=== PATIENT | female | born 1940 | race Caucasian/White ===

== ENCOUNTER 2019-02-26 13:58 | Emergency (ER) | payer MEDICARE, OTHER ==
--- NOTE | 2019-02-26 14:43 | ER Document Report ---
ED Medical Screen (RME) - General Chief Complaint: Fall Injury Stated Complaint: RIB PAIN Time Seen by Provider: 02/26/19 14:23 Mode of Arrival: Ambulatory Information source: Patient, Relative Notes: 78-year-old female with history of PE and EtOH abuse presents emergency department with reports of falling and hitting the left side of her ribs Monday. Reports she was vacuuming and tripped over the cord and fell. No change in LOC. Patient also reports that she has not had a drink in the past 5 days, is looking for assistance with this. She reports she usually has 4-5 shots of vodka a day. She has been to [employer] and went by port but did not like the looks of the places. Daughter reports patient seems short of breath when talking. She has not been on anticoagulants for couple years. Respiratory rate even unlabored. Ecchymosis noted to the left lateral ribs. I have greeted and performed a rapid initial assessment of this patient. A comprehensive ED assessment and evaluation of the patient, analysis of test results and completion of the medical decision making process will be conducted by additional ED providers. TRAVEL OUTSIDE OF THE [place] IN LAST 30 DAYS: No - Related Data Allergies/Adverse Reactions: Penicillins Allergy (Verified 02/26/19 14:20) Rash Past Medical History - Social History Frequency of alcohol use: Heavy - Past Medical History Cardiac Medical History: Reports: Hx Pulmonary Embolism Pulmonary Medical History: Denies: Hx Tuberculosis Malignancy Medical History: Reports: Hx Breast Cancer Psychiatric Medical History: Reports: Hx Depression - Immunizations Hx Diphtheria, Pertussis, Tetanus Vaccination: Yes - 2009 Physical Exam - Vital signs Vitals: Temp Pulse Resp BP Pulse Ox 97.6 F 86 16 125/57 L 99 02/26/19 14:12 02/26/19 14:12 02/26/19 14:12 02/26/19 14:12 02/26/19 14:12 Course - Vital Signs Vital signs: Temp Pulse Resp BP Pulse Ox 97.6 F 86 16 125/57 L 99 02/26/19 14:12 02/26/19 14:12 02/26/19 14:12 02/26/19 14:12 02/26/19 14:12
[2019-02-26 15:25] LABS: ABSOLUTE EOSINOPHILS # (AUTO) 0.1 10^3/uL (0.0-0.6); ABSOLUTE LYMPHOCYTES (AUTO) 1.3 10^3/uL (0.5-4.7); ABSOLUTE MONOCYTES (AUTO) 0.4 10^3/uL (0.1-1.4); ABSOLUTE NEUT (AUTO) 4.8 10^3/uL (1.7-8.2); BASOPHILS % (AUTO) 0.4 % (0-2); EOSINOPHILS % (AUTO) 1.5 % (0-6); HEMATOCRIT 37.1 % (36.0-47.0); HEMOGLOBIN 12.4 g/dL (12.0-15.5); LYMPHOCYTES % (AUTO) 20.1 % (13-45); MEAN CORPUSCULAR HEMOGLOBIN 32.6 pg (27.0-33.4); MEAN CORPUSCULAR HGB CONC 33.5 g/dL (32.0-36.0); MEAN CORPUSCULAR VOLUME 97 fl (80-97); MONOCYTES % (AUTO) 5.9 % (3-13); PLATELET COUNT 262 10^3/uL (150-450); RED BLOOD COUNT 3.81 10^6/uL (3.72-5.28); RED CELL DISTRIBUTION WIDTH 15.1 % (11.5-14.0); SEGMENTED NEUTROPHILS % (AUTO) 72.1 % (42-78); TOTAL CELLS COUNTED % (AUTO) 100 %; WHITE BLOOD COUNT 6.7 10^3/uL (4.0-10.5)
[2019-02-26 15:35] LABS: AMORPHOUS SEDIMENT,URINE TRACE /HPF; APPEARANCE,URINE CLOUDY; BILIRUBIN,URINE SMALL (NEGATIVE); COLOR,URINE AMBER; GLUCOSE, URINE NEGATIVE (NEGATIVE); KETONES,URINE TRACE mg/dL (NEGATIVE); LEUKOCYTE ESTERASE,URINE MODERATE (NEGATIVE); NITRITE,URINE NEGATIVE (NEGATIVE); PROTEIN,URINE 30 mg/dL (NEGATIVE)
--- NOTE | 2019-02-26 15:36 | RADIOLOGY REPORT (SQ) ---
EXAM DESCRIPTION: RIBS LEFT W/PA CHEST COMPLETED DATE/TIME: 02/26/2019 3:22 pm REASON FOR STUDY: fall, rib pain COMPARISON: Chest x-ray dated 07/21/2012. TECHNIQUE: Frontal view of the chest and additional views of the left ribs acquired. NUMBER OF VIEWS: Three view. LIMITATIONS: None. FINDINGS: FRONTAL CXR: No pneumothorax. No pleural effusion. Stable focal density in the right miriam g, presumably due to scarring. Surgical clips on the left. Hiatal hernia. RIBS: Fractures of the posterior and lateral 7th rib. Minimally displaced fracture of the lateral 6t h rib. OTHER: No other significant finding. IMPRESSION: FRACTURES OF THE LEFT 6TH AND 7TH RIBS DESCRIBED. COMMENT: SITE OF TRAUMA/COMPLAINT MARKED/STAMP COMPLETED: YES. TECHNICAL DOCUMENTATION: JOB ID: [id number] [employer]- All Rights Reserved Reading location - IP/workstation name: [email or web address]
[2019-02-26 15:50] LABS: ALBUMIN 3.8 g/dL (3.5-5.0); ALCOHOL < 10 mg/dL (NONE DETECTED); ALKALINE PHOSPHATASE 72 U/L (38-126); ANION GAP 10 (5-19); ASPARTATE AMINO TRANSFERASE 22 U/L (14-36); BILIRUBIN,DIRECT 0.3 mg/dL (0.0-0.4); BILIRUBIN,TOTAL 0.5 mg/dL (0.2-1.3); BLOOD UREA NITROGEN 21 mg/dL (7-20); CALCIUM 9.6 mg/dL (8.4-10.2); CARBON DIOXIDE 27 mmol/L (22-30); CHLORIDE 103 mmol/L (98-107); GLUCOSE 131 mg/dL (75-110); POTASSIUM 5.5 mmol/L (3.6-5.0); TOTAL PROTEIN 7.4 g/dL (6.3-8.2)
[2019-02-26] MEDS ORDERED: HYDROCODONE/ACETAMINOPHEN 5-325 MG TABLET PO ONE (15:55)
--- NOTE | 2019-02-26 15:59 | ER Document Report ---
ED Respiratory Problem - General Chief Complaint: Fall Injury Stated Complaint: RIB PAIN Time Seen by Provider: 02/26/19 14:23 Mode of Arrival: Ambulatory Notes: HPI: 78-year-old female that states she tripped and fell hitting her left ribs on a piece of furniture 3 days ago. She states she has had some pain with mov ement. She denies any fevers, cough, shortness of breath. She did not hit her head. She has small abrasion to her right elbow and states her tetanus is up-to-date. She denies pain or injury to any other location. ROS: See HPI All other review of systems reviewed and otherwise negative Reviewed vital signs and nursing note as charted by RN. PHYSICAL EXAM: CONSTITUTIONAL: Alert and oriented and responds appropriately to questions. Well-appearing; well-nourished HEAD: Normocephalic; atraumatic ENT: Normal nose; no rhinorrhea; moist mucous membranes; pharynx without lesions noted NECK: Supple without meningismus; non-tender CARD: Regular rate and rhythm; no murmurs; symmetric distal pulses RESP: Normal chest excursion without splinting or tachypnea; patient has small bruising to the left upper lateral ribs with no crepitus or flail chest; breath sounds clear and equal bilaterally ABD/GI: Normal bowel sounds; non-distended; soft, non-tender BACK: The back appears normal and is non-tender to palpation along the midline spine EXT: Normal ROM in all joints; non-tender to palpation; no edema SKIN: No acute lesions noted NEURO: CN 2-12 intact; 5/5 bilateral upper and lower extremity strength with sensation intact to light touch PSYCH: The patient's mood and manner are appropriate. Grooming and personal hygiene are appropriate. TRAVEL OUTSIDE OF THE [place] IN LAST 30 DAYS: No - Related Data Allergies/Adverse Reactions: Penicillins Allergy (Verified 02/26/19 14:20) Rash Past Medical History - General Information source: Patient, Relative - Social History Smoking Status: Never Smoker Frequency of alcohol use: Heavy Family History: Reviewed & Not Pertinent Patient has suicidal ideation: No Patient has homicidal ideation: No - Past Medical History Cardiac Medical History: Reports: Hx Pulmonary Embolism Pulmonary Medical History: Denies: Hx Tuberculosis Malignancy Medical History: Reports: Hx Breast Cancer Psychiatric Medical History: Reports: Hx Depression - Immunizations Hx Diphtheria, Pertussis, Tetanus Vaccination: Yes - 2009 Hx Pneumococcal Vaccination: 02/06/09 Physical Exam - Vital signs Vitals: Temp Pulse Resp BP Pulse Ox 97.6 F 86 16 125/57 L 99 02/26/19 14:12 02/26/19 14:12 02/26/19 14:12 02/26/19 14:12 02/26/19 14:12 Course - Re-evaluation Re-evalutation: 02/26/19 15:58 Given the above history and physical, and x-ray of the chest and an EKG were performed. X-ray as recorded. Incident was 3 days ago with oxygenation as rec orded. We will provide an incentive spirometer as well as pain medications to help the patient continue to have deep large breaths to help with pain control and to avoid pneumonia. Strict return precautions have been explained. - Vital Signs Vital signs: Temp Pulse Resp BP Pulse Ox 97.6 F 86 16 125/57 L 99 02/26/19 14:12 02/26/19 14:12 02/26/19 14:12 02/26/19 14:12 02/26/19 14:12 - Laboratory Result Diagrams: 02/26/19 14:52 02/26/19 14:52 Laboratory results interpreted by me: 02/26/19 02/26/19 02/26/19 14:52 14:52 14:52 RDW 15.1 H Potassium 5.5 H BUN 21 H Creatinine 1.32 H Est GFR ( Amer) 47 L Est GFR (MDRD) Non-Af 39 L Glucose 131 H Urine Protein 30 H Urine Ketones TRACE H Urine Bilirubin SMALL H Urine Urobilinogen 2.0 H Ur Leukocyte Esterase MODERATE H Discharge - Discharge Clinical Impression: Left rib fracture Qualifiers: Encounter type: initial encounter Rib fracture type: multiple ribs Fracture type: closed Qualified Code(s): S22.42XA - Multiple fractures of ribs, left side, initial encounter for closed fracture Condition: Good Disposition: HOME, SELF-CARE Additional Instructions: Come back immediately for any increased pain, difficulty breathing, shortness of breath, fevers or vomiting, or any other acute problems. Please make sure that you take the pain medications as needed and make sure that you continue to take deep breaths with follow-up with your primary care physician as we have discussed.
--- NOTE | 2019-02-26 17:01 | EKG REPORT ---
SEVERITY:- NORMAL ECG - SINUS RHYTHM : Confirmed by: Mukund Helms MD 26-Feb-2019 16:59:43
[2019-02-26 17:08] VITALS: BP 164/80
== END 2019-02-26 17:06 | disposition home or self-care (01) ==
LOC: ER 13:58
DX: S22.42XA Multiple fractures of ribs, left side, initial encounter for closed fracture (principal); S50.311A Abrasion of right elbow, initial encounter; W01.190A Fall on same level from slipping, tripping and stumbling with subsequent striking against furniture, initial encounter
CPT/HCPCS: 36415; 80053; 80307; 81001; 85025; 93005; 93010; 99283

== ENCOUNTER 2019-12-20 15:46 | Inpatient (IN) | payer MEDICARE ==
[2019-12-20 16:06] LABS: ABSOLUTE BASOPHILS # (AUTO) 0.1 10^3/uL (0.0-0.2); ABSOLUTE EOSINOPHILS # (AUTO) 0.1 10^3/uL (0.0-0.6); ABSOLUTE LYMPHOCYTES (AUTO) 1.3 10^3/uL (0.5-4.7); ABSOLUTE MONOCYTES (AUTO) 0.5 10^3/uL (0.1-1.4); HEMOGLOBIN 11.3 g/dL (12.0-15.5); MEAN CORPUSCULAR HGB CONC 32.5 g/dL (32.0-36.0); TOTAL CELLS COUNTED % (AUTO) 100 %
[2019-12-20 16:11] LABS: PARTIAL THROMBOPLASTIN TIME 25.9 SEC (23.5-35.8)
[2019-12-20 16:16] LABS: ABSOLUTE NEUT (AUTO) 2.9 10^3/uL (1.7-8.2); BASOPHILS % (AUTO) 1.2 % (0-2); HEMATOCRIT 34.8 % (36.0-47.0); LYMPHOCYTES % (AUTO) 26.4 % (13-45); MEAN CORPUSCULAR HEMOGLOBIN 30.4 pg (27.0-33.4); MEAN CORPUSCULAR VOLUME 94 fl (80-97); MONOCYTES % (AUTO) 9.7 % (3-13); PLATELET COUNT 194 10^3/uL (150-450); RED BLOOD COUNT 3.72 10^6/uL (3.72-5.28); RED CELL DISTRIBUTION WIDTH 16.1 % (11.5-14.0); SEGMENTED NEUTROPHILS % (AUTO) 60.7 % (42-78); WHITE BLOOD COUNT 4.8 10^3/uL (4.0-10.5)
[2019-12-20 16:18] LABS: INTERNATIONAL RATION (INR) 0.86; PROTHROMBIN TIME 11.9 SEC (11.4-15.4)
--- NOTE | 2019-12-20 16:18 | RADIOLOGY REPORT (SQ) ---
EXAM DESCRIPTION: CHEST SINGLE VIEW IMAGES COMPLETED DATE/TIME: 12/20/2019 4:11 pm REASON FOR STUDY: AMS COMPARISON: 07/21/2012 EXAM PARAMETERS: NUMBER OF VIEWS: One view. TECHNIQUE: Single frontal radiographic view of the chest acquired. RADIATION DOSE: NA LIMITATIONS: None. FINDINGS: LUNGS AND PLEURA: No opacities, masses or pneumothorax. No pleural effusion. MEDIASTINUM AND HILAR STRUCTURES: No masses. Contour normal. HEART AND VASCULAR STRUCTURES: Heart normal in size. Normal vasculature. BONES: No acute findings. HARDWARE: Surgical clips overlie the lower left chest wall. OTHER: No other significant finding. IMPRESSION: NO ACUTE RADIOGRAPHIC FINDING IN THE CHEST. TECHNICAL DOCUMENTATION: JOB ID: [id number] 2010 [employer]- All Rights Reserved Reading location - IP/workstation name: [email or web address]
--- NOTE | 2019-12-20 16:19 | RADIOLOGY REPORT (SQ) ---
EXAM DESCRIPTION: CT HEAD WITHOUT IMAGES COMPLETED DATE/TIME: 12/20/2019 4:08 pm REASON FOR STUDY: AMS COMPARISON: 10/02/2012 TECHNIQUE: Axial images acquired through the brain without intravenous contrast. Images reviewed wi th bone, brain and subdural windows. Additional sagittal and coronal reconstructions were generated. Images stored on PACS. All CT scanners at this facility use dose modulation, iterative reconstruction, and/or weight based d osing when appropriate to reduce radiation dose to as low as reasonably achievable (ALARA). [facility]: Dose Right [facility]: CareDose [facility]: Dose Right [facility]: Teradose 4D [facility]: Agilys RADIATION DOSE: CT Rad equipment meets quality standard of care and radiation dose reduction techniq ues were employed. CTDIvol: 53.2 mGy. DLP: 991 mGy-cm.mGy. LIMITATIONS: None. FINDINGS: VENTRICLES: Prominent. CEREBRUM: No masses. No hemorrhage. No midline shift. Areas of low density in the white matter mos t likely due to chronic micro-vascular ischemic change. No evidence for acute infarction. CEREBELLUM: No masses. No hemorrhage. No alteration of density. No evidence for acute infarction. EXTRAAXIAL SPACES: Age-related involutional change. No fluid collections. No masses. ORBITS AND GLOBE: No intra- or extraconal masses. Normal contour of globe without masses. CALVARIUM: No fracture. PARANASAL SINUSES: No fluid or mucosal thickening. SOFT TISSUES: No mass or hematoma. OTHER: No other significant finding. IMPRESSION: CHRONIC CHANGES OF ATROPHY AND MICROVASCULAR ISCHEMIA. NO ACUTE PROCESS. EVIDENCE OF ACUTE STROKE: NO. TECHNICAL DOCUMENTATION: JOB ID: [id number] Quality ID # [id number]: Final reports with documentation of one or more dose reduction techniques (e.g., Au tomated exposure control, adjustment of the mA and/or kV according to patient size, use of iterative reconstruction technique) 2010 [employer]- All Rights Reserved Reading location - IP/workstation name: [email or web address]
[2019-12-20 16:31] LABS: ALBUMIN 3.4 g/dL (3.5-5.0); ALKALINE PHOSPHATASE 87 U/L (38-126); ANION GAP 9 (5-19); ASPARTATE AMINO TRANSFERASE 19 U/L (14-36); BILIRUBIN,DIRECT 0.1 mg/dL (0.0-0.4); BILIRUBIN,TOTAL 0.3 mg/dL (0.2-1.3); BLOOD UREA NITROGEN 16 mg/dL (7-20); CARBON DIOXIDE 24 mmol/L (22-30); CHLORIDE 106 mmol/L (98-107); GLUCOSE 85 mg/dL (75-110); POTASSIUM 4.1 mmol/L (3.6-5.0); TOTAL PROTEIN 6.6 g/dL (6.3-8.2)
[2019-12-20 16:35] LABS: ALCOHOL < 10 mg/dL (NONE DETECTED); CREATINE KINASE < 20 U/L (30-135)
[2019-12-20 16:42] LABS: CREATINE KINASE MB 0.49 ng/mL (<4.55)
--- NOTE | 2019-12-20 16:45 | ER Document Report ---
ED Neuro Symptoms/Deficit - General Chief Complaint: Slurred Speech Stated Complaint: AMS Time Seen by Provider: 12/20/19 15:58 TRAVEL OUTSIDE OF THE [place] IN LAST 30 DAYS: No - HPI Notes: Patient is an 79-year-old female with a past medical history of alcohol abuse who presents with stroke like symptoms. Patient lives with her daughter. Her daughter went to run some errands today. Her daughter states that the aunt called her over the phone and stated that the patient was not acting normally when they were talking. The daughter states that the last known well was around 11am to 11:30 AM when the patient was talking with the aunt and her speech became abnormal. The daughter does not think that the patient is taking blood thinners but she did in the past. She has a history of high blood pressure but is not sure if she is taking her blood pressure medications either. The patient came to live with her daughter after relapsing with alcohol abuse. Patient is not a TPA candidate as she is outside the TPA window. - Related Data Allergies/Adverse Reactions: Penicillins Allergy (Verified 02/26/19 14:20) Rash Past Medical History - General Information source: Relative - Social History Smoking Status: Unknown if Ever Smoked Family History: Reviewed & Not Pertinent - Past Medical History Cardiac Medical History: Reports: Hx Pulmonary Embolism Pulmonary Medical History: Denies: Hx Tuberculosis Malignancy Medical History: Reports: Hx Breast Cancer Psychiatric Medical History: Reports: Hx Depression - Immunizations Hx Diphtheria, Pertussis, Tetanus Vaccination: Yes - 2009 Hx Pneumococcal Vaccination: 02/06/09 Review of Systems - Review of Systems -: Yes ROS unobtainable due to patient's medical condition - Aphasia Physical Exam - Vital signs Vitals: Pulse Ox 98 12/20/19 16:11 - General General appearance: Appears well Notes: VITAL SIGNS: Within normal limits. GENERAL: No acute distress, non-toxic appearance. HEAD: Normal with no signs of head trauma. EYES: EOMI, conjunctiva normal, no discharge. EARS: Hearing grossly intact. NOSE: Normal. NECK: Normal range of motion, no tenderness, supple, no lymphadenopathy, No adenopathy, no JVD. CHEST: Clear breath sounds bilaterally. No wheezes, rales, or rhonchi. CARDIAC: Regular rate and rhythm. S1 and S2, without murmurs, gallops, or rubs. VASCULAR: No Edema. Peripheral pulses normal and equal in all extremities. ABDOMEN: Normal and soft with no tendernes GENITOURINARY: Normal, No tenderness LYMPATHTIC: No lymphadenopathy noted. MUSCULOSKELETAL: Good range of motion of all major joints. NEUROLOGICAL: Follows all commands. Moves all extremities equally. Right-sided facial droop. Aphasia. SKIN: Normal appearance with no rashes or lesions. Course - Re-evaluation Re-evalutation: 12/21/19 02:13 Patient has symptoms concerning for a stroke. Alcohol level is normal. Patient's head CT was normal. She is outside the TPA window but I discussed with [facility] neurology to make sure she does not need any intervention prior to her CTA being read. CTA does not show any findings. Neurology recommended she be admitted for MRI and further management. I did discuss all this with the daughter who is now at bedside. Patient continues to be aphasic. She continues to move all extremities. Patient does seem to be frustrated that she is unable to talk. She did have a slightly bumped troponin. She states she is not having chest pain when asked. She will be admitted for further care. - Vital Signs Vital signs: Temp Pulse Resp BP Pulse Ox 98.0 F 98 12/20/19 16:12 12/20/19 16:11 - Laboratory Result Diagrams: 12/20/19 15:52 12/20/19 15:52 Laboratory results interpreted by me: 12/20/19 12/20/19 15:52 15:52 Hgb 11.3 L Hct 34.8 L RDW 16.1 H Est GFR ( Amer) 59 L Est GFR (MDRD) Non-Af 49 L Creatine Kinase < 20 L Albumin 3.4 L - Diagnostic Test Radiology reviewed: Image reviewed, Reports reviewed - EKG Interpretation by Me EKG shows normal: Sinus rhythm Rate: Normal Rhythm: NSR When compared to previous EKG there are: Previous EKG unavailable ED NIH Stroke Scale - NIH Stroke Scale When completed:: Protocol *: 1. NIH scale should be completed with appropriate accompanying assessment tools. *: 2. The NIH should reflect what the patient is capable of doing and should not be coached by the clinician. 1a. Level of Consciousness: 0=Alert;keenly responsive -: 1=Drowsy -: 2=Obtunded -: 3=Coma/unresponsive or reflex to noxious stimuli. 1a. Responses: 0 1b. Orientation Questions: a. What month is it? -: b. How old are you? -: 0=Answers both questions correctly. -: 1=Answers one question correctly or patient is intubated or has orotracheal trauma. -: 2=Answers neither question correctly. 1b. Responses: 0 1c. Response to commands: a. Open and close eyes? -: b. Food Mixer Repairer and release hand? -: Credit is given despite weakness. Demonstration of task is permitted. Substitute command if hands cannot be used. -: 0=Performs both tasks correctly -: 1=Performs one task correctly -: 2=Performs neither task correctly 1c. Responses: 0 2. Gaze: Establish eye contact and instruct patient to "Follow my finger" -: 0=Normal -: 1=Partial gaze palsy. Gaze is abnormal in one or both eyes, but where forced deviation or total gaze paresis is not present. -: 2=Forced deviation or total gaze paresis. 2. Responses: 0 3. Visual Avalos: Sees fingers in all four quadrants. -: 0=No visual loss. -: 1=Partial hemianopsia. -: 2=Complete hemianopsia. -: 3=Bilateral hemianopsia (including Cortical blindness) 3. Responses: 0 4. Facial Movement: Instruct patient to: -: a. Show me your teeth -: b. Raise your eyebrows -: c. Close your eyes -: d. Smile -: 0=Normal symmetrical movement -: 1=Minor paralysis (flattened nasolabial fold, asymmetry on smiling). -: 2=Partial paralysis (total or near total paralysis of lower face). -: 3=Complete paralysis of upper and lower face 4. Responses: 1 5. Motor functions (left arm): Alternate sides and extend each arm with palms down (90 degrees if sitting or 45 degrees for supine). -: 0=No drift;limb holds for full 10 seconds. -: 1=Drift; limb holds but drifts down before full 10 seconds, but does not hit bed. -: 2=Some effort against gravity; limb cannot get to or maintain position. -: 3=No effort against gravity; limb falls. -: 4=No movement. -: UN=Amputation, joint fusion, explain in comments. 5. Responses (left arm): 0 5. Motor Functions (right arm): Alternate sides and extend each arm with palms down (90 degrees if sitting or 45 degrees for supine). -: 0=No drift;limb holds for full 10 seconds. -: 1=Drift; limb holds but drifts down before full 10 seconds, but does not hit bed. -: 2=Some effort against gravity; limb cannot get to or maintain position. -: 3=No effort against gravity; limb falls. -: 4=No movement. -: UN=Amputation, joint fusion, explain in comments. 5. Responses (right arm): 0 6. Motor Functions (left leg): With patient lying supine, alternate sides and extend each leg (30 degrees always while supine). -: 0=No drift, leg holds position for full 5 seconds -: 1=Drift; leg falls before full 5 seconds but does not hit bed. -: 2=Some effort against gravity, leg falls to bed but some effort against gravity. -: 3=No effort against gravity, leg falls to bed immediately. -: 4=No movement. -: UN=Amputation, joint fusion; explain in comments. 6. Responses (left leg): 0 6. Motor Functions (right leg): With patient lying supine, alternate sides and extend each leg (30 degrees always while supine). -: 0=No drift, leg holds position for full 5 seconds -: 1=Drift; leg falls before full 5 seconds but does not hit bed. -: 2=Some effort against gravity, leg falls to bed but some effort against gravity. -: 3=No effort against gravity, leg falls to bed immediately. -: 4=No movement. -: UN=Amputation, joint fusion; explain in comments. 6. Responses (right leg): 0 7. Limb Ataxia: With eyes open instruct patient to: -: a. "Touch your finger to your nose". -: b. "Touch your heel to your barragan" -: 0=Absent -: 1=Present in one limb. -: 2=Present in two limbs. -: UN=Amputation or joint fusion; explain in comments. 7. Responses: 0 8. Sensory: Test sensation using pinprick or noxious stimuli. Test as many body parts as possible. -: 0=Normal;no sensory loss -: 1=Mile to moderate sensory loss (patient feels pin prick but is less sharp on affected side). -: 2=Severe or total sensory loss. 8. Responses: 0 9. Best Language: Instruct patient to: -: a. "Describe what you see in this picture." -: b. "Name the items in this picture." -: c. "Read these sentences." -: 0=No aphasia, normal -: 1=Mild to moderate aphasia. -: 2=Severe aphasia -: 3=Mute, global aphasia, no usable speech or auditory comprehension. 9. Responses: 2 10. Articulation, Dysarthia: Instruct patient to: -: "Read these words" or "Repeat these words" -: 0=Normal -: 1=Mild to moderate; patient may slur some words but can be understood without difficulty. -: 2=Severe; patients speech so slurred as to be unintelligible in the absence of dysphasia. -: UN=Intubated or other physical barrier, explain in comments. 10. Responses: 2 11. Extinction or inattention: 0=No abnormality -: 1= Visual, tactile, auditory, spatial, or personal inattention or extinction to bilateral simulation in one or the sensory modalities. -: 2=Profound annika-inattention or annika-inattention to more than one modality; does not recognize own hand. 11. Responses: 0 Total Score: 5 Discharge - Discharge Clinical Impression: Aphasia, Stroke-like symptoms Condition: Stable Disposition: ADMITTED INPATIENT Admitting Provider: Kristal (Hospitalist) Unit Admitted: Telemetry - med surg tele
[2019-12-20 16:48] LABS: TROPONIN I 0.052 ng/mL
--- NOTE | 2019-12-20 17:46 | RADIOLOGY REPORT (SQ) ---
EXAM DESCRIPTION: CTA HEAD IMAGES COMPLETED DATE/TIME: 12/20/2019 5:35 pm REASON FOR STUDY: stroke alert COMPARISON: None. TECHNIQUE: Post IV contrast scanning, thin section axial imaging through the brain to evaluate the a rterial structures. Source and MIP images are saved and reviewed on PACS. Advanced 3D imaging as volume-rendering, MIPs, SSD performed? yes All CT scanners at this facility use dose modulation, iterative reconstruction, and/or weight based d osing when appropriate to reduce radiation dose to as low as reasonably achievable (ALARA). [facility]: Dose Right [facility]: CareDose [facility]: Dose Right [facility]: Teradose 4D [facility]: Socure CONTRAST TYPE AND DOSE: 70 mL Omnipaque 350- low osmolar. RENAL FUNCTION: BUN 16 creatinine 1.08 LIMITATIONS: None. FINDINGS: [place]: The anterior, middle, posterior cerebral arteries are all patent. No ev idence of aneurysm or focal stenosis. POSTERIOR CIRCULATION: The distal vertebral arteries are patent as is the basilar artery. No aneurysm . BRAIN: No gross enhancing lesions as visualized. The superior cerebral hemispheres are not included in the field of view. BONES: Intact as visualized. SINUSES: No fluid or mucosal thickening. OTHER: No other significant finding. IMPRESSION: NO CTA EVIDENCE OF STENOSIS OR ANEURYSM OF THE K[place]TAG OF [place]. TECHNICAL DOCUMENTATION: JOB ID: [id number] Quality ID # [id number]: Final reports with documentation of one or more dose reduction techniques (e.g., Au tomated exposure control, adjustment of the mA and/or kV according to patient size, use of iterative reconstruction technique) 2010 [employer]- All Rights Reserved Reading location - IP/workstation name: [email or web address]
--- NOTE | 2019-12-20 17:49 | RADIOLOGY REPORT (SQ) ---
EXAM DESCRIPTION: CTA NECK IMAGES COMPLETED DATE/TIME: 12/20/2019 5:35 pm REASON FOR STUDY: stroke alert COMPARISON: None. TECHNIQUE: Axial dynamic scanning technique with dynamic contrast enhancement through the extra-aircraft structural design engineer nial carotid and vertebral arteries. Multiplanar reconstruction. 3-D MIPS and Volume-rendered imag es acquired at the workstation and saved to PACS. Images are reviewed in soft tissue, bone, lung w indows. All CT scanners at this facility use dose modulation, iterative reconstruction, and/or weight based d osing when appropriate to reduce radiation dose to as low as reasonably achievable (ALARA). [facility]: Dose Right [facility]: CareDose [facility]: Dose Right [facility]: Teradose 4D [facility]: Avaz CONTRAST TYPE AND DOSE: contrast/concentration: Isovue 350.00 mmol/ml; Total Contrast Delivered: 69. 9 ml; Total Saline Delivered: 75.0 ml RENAL FUNCTION: BUN 16 creatinine 1.08 LIMITATIONS: None. FINDINGS: AORTIC ARCH: Normal three-vessel origin. Bilateral subclavian arteries are patent. No d issection. RIGHT CAROTIDS: Patent common, internal and external carotid arteries without suggestion of significa nt stenosis or irregular plaque. No dissection. Tortuous ICA RIGHT VERTEBRAL: Patent. No dissection. Smaller than the left vertebral. LEFT CAROTIDS: Patent common, internal and external carotid arteries without suggestion of significan t stenosis or irregular plaque. No dissection. Tortuous ICA LEFT VERTEBRAL: Patent. No dissection. OTHER: No other significant finding. OTHER: 3-D reconstructions confirm findings. IMPRESSION: NORMAL CTA OF THE EXTRA-CRANIAL CAROTID AND VERTEBRAL ARTERIES. COMMENT: Quality ID #[id number]: Measurements of distal internal carotid diameter were used as the denomina tor for stenosis measurement. TECHNICAL DOCUMENTATION: JOB ID: [id number] Quality ID # [id number]: Final reports with documentation of one or more dose reduction techniques (e.g., Au tomated exposure control, adjustment of the mA and/or kV according to patient size, use of iterative reconstruction technique) 2010 [employer]- All Rights Reserved Reading location - IP/workstation name: [email or web address]
[2019-12-20] MEDS ORDERED: NORMAL SALINE 500 ML IV ONE (18:16)
[2019-12-20] MEDS ORDERED: ONDANSETRON HCL INJ/PF 4 MG/2 ML SDV IV PRN (21:10)
[2019-12-20] MEDS ORDERED: ACETAMINOPHEN 325 MG TABLET PO PRN (21:10)
[2019-12-20] MEDS ORDERED: ONDANSETRON 4 MG TAB.RAPDIS PO PRN (21:10)
--- NOTE | 2019-12-20 21:33 | PDOC H&P ---
History of Present Illness History of Present Illness: EYAL REED is a 79 year old female with past medical history significant for history of alcohol withdrawal and abuse with dependency, HTN, breast cancer x2 status post lumpectomy, history of bilateral PE off anticoagulation who presents with a 1 day history persistent expressive aphasia and right facial droop patient reportedly last seen normal at approximately 11 AM. Patient brought to ED by EMS and was not a candidate for TPA. CT head and head/neck CTA head did not show any acute or significant flow restrictions, no evidence of bleeding or other acute process. EKG showed normal sinus rhythm without acute changes. Troponin minimally elevated at 0.052 and patient denies any chest pain. Per daughter, patient has an extremely long history of alcohol abuse and when she drinks at least a pint of vodka per day for many years. Patient was previously diagnosed with bilateral PE when she had breast cancer and she was subsequently taken off Coumadin due to falling and having a hip hematoma presumably due to alcohol abuse and alcohol-related ataxia. She does not take aspirin every day. Denies fever/chills/chest pain/shortness of breath/diarrhea/vomiting. Denies any sick contacts or Covid exposure. Patient will be admitted for neuro checks and stroke work-up however she will also need several days of inpatient stay for what very well could be severe alcohol withdrawal. Per daughter, patient has had alcohol withdrawal in the past and she became extremely combative and confused. ROS is extremely limited due to patient's expressive aphasia. Patient and daughter both agree that she wants to be DNR/DNI. Past Medical History Cardiac Medical History: Reports: Pulmonary Embolism Pulmonary Medical History: Denies: Tuberculosis Malignancy Medical History: Reports: Breast Cancer Psychiatric Medical History: Reports: Alcohol Dependency, Depression Past Surgical History Past Surgical History: Reports: Other - Lumpectomy left breast Social History Information Source: Patient, Relative, Emergency Med Personnel Lives with: Family Smoking Status: Never Smoker Frequency of Alcohol Use: Heavy Hx Recreational Drug Use: No Hx Prescription Drug Abuse: No - Advance Directive Resuscitation Status: Do Not Resuscitate Surrogate healthcare decision maker:: Admitting diagnosis: Suspected acute CVA and alcohol withdrawal All aspects of code status discussed with patient/POA including cardioversion, chest compressions, and intubation and the patient/POA indicated they wish to be DNR/DNI MPOA is designated as: Shira Vaz Time spent: Greater than 16 minutes Family History Family History: Reviewed & Not Pertinent, COPD Parental Family History Reviewed: Yes Children Family History Reviewed: Yes Sibling(s) Family History Reviewed.: Yes Medication/Allergy Home Medications: No Home Medications 12/20/19 Allergies/Adverse Reactions: Penicillins Allergy (Verified 02/26/19 14:20) Rash Review of Systems All systems: reviewed and no additional remarkable complaints except as stated - Per HPI otherwise negative Physical Exam Vital Signs: Temp Pulse Resp BP Pulse Ox 98.1 F 84 23 H 167/102 H 97 12/20/19 18:32 12/20/19 18:32 12/20/19 19:30 12/20/19 19:30 12/20/19 19:30 Intake & Output 12/19/19 12/20/19 12/21/19 06:59 06:59 06:59 Intake Total 500 Balance 500 Weight 49.2 kg Exam: General appearance: PRESENT: no acute distress, thin and frail appearing white female Head exam: PRESENT: atraumatic, normocephalic Eye exam: PRESENT: conjunctiva pink. ABSENT: scleral icterus Mouth exam: PRESENT: moist Respiratory exam: PRESENT: clear to auscultation melissa. ABSENT: rales, rhonchi, wheezes Cardiovascular exam: PRESENT: RRR. ABSENT: diastolic murmur, rubs, systolic murmur GI/Abdominal exam: PRESENT: normal bowel sounds, soft. ABSENT: distended, guarding, mass, organolmegaly, rebound, tenderness Neurological exam: PRESENT: alert, awake, cannot assess orientation due to expressive aphasia; limited neurologic exam due to inability to follow commands effectively although patient appears to have strength 5/5 upper and lower extremities equal bilaterally, significant right facial droop, cranial nerves otherwise appear grossly intact but exam is limited Psychiatric exam: PRESENT: appropriate affect, normal mood Skin exam: PRESENT: dry, intact, warm Results Laboratory Results: 12/20/19 15:52 12/20/19 15:52 12/20/19 12/20/19 15:52 15:52 WBC 4.8 RBC 3.72 Hgb 11.3 L Hct 34.8 L MCV 94 MCH 30.4 MCHC 32.5 RDW 16.1 H Plt Count 194 Seg Neutrophils % 60.7 Sodium 138.9 Potassium 4.1 Chloride 106 Carbon Dioxide 24 Anion Gap 9 BUN 16 Creatinine 1.08 Est GFR ( Amer) 59 L Glucose 85 Calcium 9.0 Total Bilirubin 0.3 AST 19 Alkaline Phosphatase 87 Total Protein 6.6 Albumin 3.4 L 12/20/19 12/20/19 12/20/19 15:52 15:52 18:43 Creatine Kinase < 20 L CK-MB (CK-2) 0.49 Troponin I 0.052 Cancelled 12/20/19 20:00 Creatine Kinase CK-MB (CK-2) Troponin I 0.068 Impressions: Chest X-Ray 12/20/19 15:59 IMPRESSION: NO ACUTE RADIOGRAPHIC FINDING IN THE CHEST. Head CT 12/20/19 15:59 IMPRESSION: CHRONIC CHANGES OF ATROPHY AND MICROVASCULAR ISCHEMIA. NO ACUTE PROCESS. EVIDENCE OF ACUTE STROKE: NO. Head CTA 12/20/19 16:37 IMPRESSION: NO CTA EVIDENCE OF STENOSIS OR ANEURYSM OF THE [place]. Neck CTA 12/20/19 16:37 IMPRESSION: NORMAL CTA OF THE EXTRA-CRANIAL CAROTID AND VERTEBRAL ARTERIES. Assessment and Plan - Diagnosis (1) Suspected cerebrovascular accident (CVA) Is this a current diagnosis for this admission?: Yes Plan: -Admitted for CVA rule out -NIHSS on Admit: 5 -tPA not given due to being outside window of time -ASA, Statin -Lipid Panel -Carotid PVL -TTE -CT Head and CTA head/neck showed no acute findings -MRI Brain pending -Permissive HTN goal < 220/120 for 48hrs post-sx's onset or until CVA ruled out (2) Alcohol dependence with withdrawal Is this a current diagnosis for this admission?: Yes Plan: Drinks approximately 1 pint of vodka per day for many years CIWA with as needed Ativan May need scheduled Ativan however we will hold this for now in order to not skew data from our neuro checks which could live out nanny worsening neurologic function from CVA Vitamins, thiamine, IV fluids Counseled on cessation (3) HTN (hypertension) Is this a current diagnosis for this admission?: Yes Plan: Permissive hypertension following a CVA (4) History of breast cancer in female Is this a current diagnosis for this admission?: Yes Plan: Cancer free per patient and daughter (5) History of pulmonary embolus (PE) Is this a current diagnosis for this admission?: Yes Plan: Previously on Coumadin for anticoagulation but this was stopped during a prior hospitalization in which the patient fell and had a hip hematoma; she was deemed to have a fall risk to be on long-term anticoagulation Check PVL BLE to rule out DVT Doubtful that patient is a candidate for long-term anticoagulation due to continued alcohol abuse - Time Time Spent with patient: 35 or more minutes Medications reviewed and adjusted accordingly: Yes Anticipated Discharge Disposition: Longterm Facility Anticipated Discharge Timeframe: within 72 hours - Inpatient Certification Based on my medical assessment, after consideration of the patient's comorbidities, presenting symptoms, or acuity I expect that the services needed warrant INPATIENT care.: Yes I certify that my determination is in accordance with my understanding of Medicare's requirements for reasonable and necessary INPATIENT services [42 CFR 412.3e].: Yes Medical Necessity: Significant Comorbidiites Make Outpatient Treatment Too Risky, Need Close Monitoring Due to Risk of Patient Decompensation, Need For IV Fluids, Need for Neurological Checks, Risk of Complication if Not Cared For in Hospital, Risk of Diagnosis Which Will Require Inpatient Eval/Care/Monitoring
[2019-12-20] MEDS: ENOXAPARIN SODIUM INJ 40 MG/0.4 ML DISP.SYRIN SUBCUT SCH (22:01)
[2019-12-20] MEDS: ATORVASTATIN CALCIUM 40 MG TABLET PO SCH (22:01)
--- NOTE | 2019-12-20 22:31 | RADIOLOGY REPORT (SQ) ---
EXAM DESCRIPTION: US EXTREMITY VEINS BILATERAL COMPLETED DATE/TME: 12/20/2019 22:07 CLINICAL HISTORY: 79 years, Female, DVT/PE COMPARISON: None. TECHNIQUE: Transverse and longitudinal sonographic images of the bilateral lower extremity deep venous system LIMITATIONS: None. FINDINGS: There is linear areas of increased echogenicity associated with portions of the left popliteal vein. These findings may reflect chronic DVT. On the right, there is visible thrombus associated with the popliteal vein, and posterior tibial vein consistent with DVT. There is otherwise normal compression and augmentation throughout. Doppler images show limited flow in these regions but is otherwise normal. IMPRESSION: Findings positive for acute right lower extremity DVT. 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 copyright 2010 [employer]- All Rights Reserved
[2019-12-21] MEDS: RINGERS SOLUTION,LACTATED 1,000 ML IV PRN (00:47)
[2019-12-21 08:23] LABS: ABSOLUTE EOSINOPHILS # (AUTO) 0.1 10^3/uL (0.0-0.6); ABSOLUTE LYMPHOCYTES (AUTO) 0.8 10^3/uL (0.5-4.7); ABSOLUTE MONOCYTES (AUTO) 0.5 10^3/uL (0.1-1.4); ABSOLUTE NEUT (AUTO) 3.1 10^3/uL (1.7-8.2); BASOPHILS % (AUTO) 0.7 % (0-2); EOSINOPHILS % (AUTO) 1.6 % (0-6); HEMATOCRIT 34.4 % (36.0-47.0); HEMOGLOBIN 11.5 g/dL (12.0-15.5); LYMPHOCYTES % (AUTO) 18.3 % (13-45); MEAN CORPUSCULAR HEMOGLOBIN 30.8 pg (27.0-33.4); MEAN CORPUSCULAR HGB CONC 33.3 g/dL (32.0-36.0); MEAN CORPUSCULAR VOLUME 93 fl (80-97); MONOCYTES % (AUTO) 10.2 % (3-13); PLATELET COUNT 190 10^3/uL (150-450); RED BLOOD COUNT 3.72 10^6/uL (3.72-5.28); RED CELL DISTRIBUTION WIDTH 15.9 % (11.5-14.0); SEGMENTED NEUTROPHILS % (AUTO) 69.2 % (42-78); TOTAL CELLS COUNTED % (AUTO) 100 %; WHITE BLOOD COUNT 4.4 10^3/uL (4.0-10.5)
[2019-12-21 08:44] LABS: ANION GAP 9 (5-19); BLOOD UREA NITROGEN 13 mg/dL (7-20); CALCIUM 8.9 mg/dL (8.4-10.2); CARBON DIOXIDE 22 mmol/L (22-30); CHLORIDE 106 mmol/L (98-107); CHOLESTEROL 127.15 mg/dL (0-200); GLUCOSE 77 mg/dL (75-110); PHOSPHORUS 3.4 mg/dL (2.5-4.5); POTASSIUM 4.2 mmol/L (3.6-5.0); TRIGLYCERIDES 128 mg/dL (<150)
[2019-12-21 08:54] LABS: DIRECT LDL 69 mg/dL (<100)
--- NOTE | 2019-12-21 09:51 | EKG REPORT ---
SEVERITY:- NORMAL ECG - SINUS RHYTHM : Confirmed by: Deann Zayas 21-Dec-2019 09:50:28
[2019-12-21] MEDS: DOCUSATE SODIUM 100 MG CAPSULE PO SCH (10:23)
[2019-12-21] MEDS: ASPIRIN 81 MG TABLET, CHEWABLE PO SCH (10:23)
[2019-12-21] MEDS: ENOXAPARIN SODIUM INJ 40 MG/0.4 ML DISP.SYRIN SUBCUT SCH (10:24)
--- NOTE | 2019-12-21 11:39 | PDOC PROGRESS REPORT ---
Subjective Date:: 12/21/19 Subjective:: Patient is resting comfortably. Makes consistent eye contact. Still with expre ssive aphasia. Reason For Visit: SUSPECTED ACUTE CVA,ETOH WITHDRAWEL AND DEPENDENCY Physical Exam Vital Signs: Temp Pulse Resp BP Pulse Ox 98.2 F 92 20 139/84 H 100 12/21/19 08:24 12/21/19 07:00 12/21/19 04:48 12/21/19 04:48 12/21/19 04:48 Intake & Output 12/20/19 12/21/19 12/22/19 06:59 06:59 06:59 Intake Total 500 Balance 500 Weight 48 kg General appearance: PRESENT: no acute distress, thin, well-developed Head exam: PRESENT: atraumatic, normocephalic Ear exam: PRESENT: normal external ear exam. ABSENT: bleeding, drainage Mouth exam: PRESENT: moist, tongue midline Neck exam: PRESENT: full ROM. ABSENT: carotid bruit, JVD, lymphadenopathy Respiratory exam: PRESENT: clear to auscultation melissa, symmetrical, unlabored. ABSENT: rales, rhonchi, tachypnea, wheezes Cardiovascular exam: PRESENT: RRR, +S1, +S2, systolic murmur - Faint. ABSENT: bradycardia, diastolic murmur, irregular rhythm, tachycardia GI/Abdominal exam: PRESENT: normal bowel sounds, soft. 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 ABSENT: dislocation Neurological exam: PRESENT: alert, awake, oriented to person - Due to aphasia unable to determine other orientation indices, motor sensory deficit - Right hand disability benefits specialist strength 2-3 over 5. Decreased right leg strength. Difficult to maintain straight leg raise off of the bed., aphasic - Appears not to have a receptive aphasia but definitely an expressive aphasia. This morning I was able to understand some of her responses to my questions. Psychiatric exam: PRESENT: appropriate affect - Affect reflects her frustration with difficult communication. ABSENT: agitated, anxious Results Laboratory Results: 12/21/19 08:07 12/21/19 08:07 12/20/19 12/20/19 12/21/19 15:52 15:52 08:07 WBC 4.8 RBC 3.72 Hgb 11.3 L Hct 34.8 L MCV 94 MCH 30.4 MCHC 32.5 RDW 16.1 H Plt Count 194 Seg Neutrophils % 60.7 Sodium 138.9 137.3 Potassium 4.1 4.2 Chloride 106 106 Carbon Dioxide 24 22 Anion Gap 9 9 BUN 16 13 Creatinine 1.08 0.94 Est GFR ( Amer) 59 L > 60 Glucose 85 77 Calcium 9.0 8.9 Phosphorus 3.4 Magnesium 1.8 Total Bilirubin 0.3 AST 19 Alkaline Phosphatase 87 Total Protein 6.6 Albumin 3.4 L Triglycerides 128 Cholesterol 127.15 LDL Cholesterol Direct 69 VLDL Cholesterol 26.0 HDL Cholesterol 38 L 12/21/19 08:07 WBC 4.4 RBC 3.72 Hgb 11.5 L Hct 34.4 L MCV 93 MCH 30.8 MCHC 33.3 RDW 15.9 H Plt Count 190 Seg Neutrophils % 69.2 Sodium Potassium Chloride Carbon Dioxide Anion Gap BUN Creatinine Est GFR ( Amer) Glucose Calcium Phosphorus Magnesium Total Bilirubin AST Alkaline Phosphatase Total Protein Albumin Triglycerides Cholesterol LDL Cholesterol Direct VLDL Cholesterol HDL Cholesterol 12/20/19 12/20/19 12/20/19 15:52 15:52 18:43 Creatine Kinase < 20 L CK-MB (CK-2) 0.49 Troponin I 0.052 Cancelled 12/20/19 12/21/19 12/21/19 20:00 02:10 08:07 Creatine Kinase CK-MB (CK-2) Troponin I 0.068 0.093 0.073 Impressions: Chest X-Ray 12/20/19 15:59 IMPRESSION: NO ACUTE RADIOGRAPHIC FINDING IN THE CHEST. Head CT 12/20/19 15:59 IMPRESSION: CHRONIC CHANGES OF ATROPHY AND MICROVASCULAR ISCHEMIA. NO ACUTE PROCESS. EVIDENCE OF ACUTE STROKE: NO. Head CTA 12/20/19 16:37 IMPRESSION: NO CTA EVIDENCE OF STENOSIS OR ANEURYSM OF THE [place] OF [place]. Neck CTA 12/20/19 16:37 IMPRESSION: NORMAL CTA OF THE EXTRA-CRANIAL CAROTID AND VERTEBRAL ARTERIES. Venous Doppler Study 12/20/19 21:08 IMPRESSION: Findings positive for acute right lower extremity DVT. 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 copyright 2010 [employer]- All Rights Reserved Assessment and Plan - Diagnosis (1) Left acute arterial ischemic stroke, MCA (middle cerebral artery) Is this a current diagnosis for this admission?: Yes (2) Deep vein thrombosis (DVT) of popliteal vein of right lower extremity Qualifiers: Chronicity: acute Qualified Code(s): I82.431 - Acute embolism and thrombosis of right popliteal vein Is this a current diagnosis for this admission?: Yes (3) Hemiparesis of right dominant side due to acute cerebrovascular disease Is this a current diagnosis for this admission?: Yes (4) Alcohol dependence with withdrawal Qualifiers: Complication of substance-induced condition: uncomplicated Qualified Code(s): F10.230 - Alcohol dependence with withdrawal, uncomplicated Is this a current diagnosis for this admission?: Yes (5) Combined receptive and expressive aphasia Is this a current diagnosis for this admission?: Yes (6) Multiple falls Is this a current diagnosis for this admission?: Yes (7) HTN (hypertension) Is this a current diagnosis for this admission?: Yes (8) History of pulmonary embolus (PE) Is this a current diagnosis for this admission?: Yes (9) History of breast cancer in female Is this a current diagnosis for this admission?: Yes - Plan Summary Summary: (1) Left acute arterial ischemic stroke, MCA (middle cerebral artery) Is this a current diagnosis for this admission?: Yes (2) Deep vein thrombosis (DVT) of popliteal vein of right lower extremity Qualifiers: Chronicity: acute Qualified Code(s): I82.431 - Acute embolism and thrombosis of right popliteal vein Is this a current diagnosis for this admission?: Yes (3) Hemiparesis of right dominant side due to acute cerebrovascular disease Is this a current diagnosis for this admission?: Yes (4) Alcohol dependence with withdrawal Qualifiers: Complication of substance-induced condition: uncomplicated Qualified Code(s): F10.230 - Alcohol dependence with withdrawal, uncomplicated Is this a current diagnosis for this admission?: Yes (5) Combined receptive and expressive aphasia Is this a current diagnosis for this admission?: Yes (6) Multiple falls Is this a current diagnosis for this admission?: Yes (7) HTN (hypertension) Is this a current diagnosis for this admission?: Yes (8) History of pulmonary embolus (PE) Is this a current diagnosis for this admission?: Yes (9) History of breast cancer in female Is this a current diagnosis for this admission?: Yes 12/21/2019 Stroke-MRI reveals acute stroke in the left parietal lobe gyri and subcortical white matter in the left MCA distribution. This is consistent with the patient's right-sided weakness. The patient also has expressive and receptive aphasia. The patient is currently on aspirin. Permissive hypertension with subsequent blood pressure control. The patient also has a DVT but has had complications with anticoagulation in the past. See below. PT, OT and speech will be seeing the patient. DVT-patient has an old DVT in the left leg. This was the source of her pulmonary emboli in the past. There is a new DVT in the right popliteal and posterior tibial veins. The patient was on anticoagulation for her pulmonary emboli in the past. After a full, due to her alcoholism, she had a very large hematoma on her hip that required prolonged hospitalization and multiple transfusions. At that time her anticoagulation was stopped as the risks outweighed the benefits. Since she is still consuming alcohol at approximately 1 pint of vodka per day she is at very high risk of fall. I spoke extensively with her daughter and her daughter and granddaughter now live with the patient. They are trying to provide support for alcohol cessation. The patient's daughter reports that she had set up several appointments and then the patient refuses to go. She states that she can stop on her own which clearly is not the case. Because of the risk versus benefit I will utilize therapeutic strength Lovenox during her hospitalization. If she proceeds to short-term rehab, which is likely, consider therapeutic Lovenox for that duration but stop anticoagulati on when the patient goes home. The patient will be on aspirin for the stroke. At her age and with her risk factors long-term anticoagulation is not advised. [id number] hemiparesis from stroke. PT and OT are ordered. The patient may benefit from short-term rehab. Aphasia-expressive and receptive aphasia. The patient is currently working with speech therapy. Alcohol dependence with multiple falls-as above. It is possible that this hospitalization with a contiguous short-term rehab stay can get the patient through any withdrawal and sobriety for 3 to 4 weeks might be the starting point for alcohol cessation. Hypertension-permissive blood pressure initially. The patient is not on any known antihypertensive medications. Will eventually try to achieve a goal of systolic pressure in the 130's. Will initiate therapy based on vital signs. History of breast cancer-this may have been the triggering agent for her initial DVT and pulmonary emboli. - Time Time Spent with patient: 25-34 minutes Medications reviewed and adjusted accordingly: Yes Anticipated Discharge Disposition: [facility] Facility Anticipated Discharge Timeframe: within 72 hours - May be dependent on the presence and degree of alcohol withdrawal.
--- NOTE | 2019-12-21 12:42 | RADIOLOGY REPORT (SQ) ---
EXAM DESCRIPTION: MRI HEAD WITHOUT IMAGES COMPLETED DATE/TIME: 12/21/2019 10:18 am REASON FOR STUDY: aphasia, facial droop. Hypertension. COMPARISON: CT head, 12/20/2019. CT angiography head, 12/20/2019. TECHNIQUE: Multiplanar imaging includes non-contrasted T1, T2, FLAIR, and diffusion with ADC map seq uences. Images stored on PACS. LIMITATIONS: None. FINDINGS: ANATOMY: No anomalies. Normal vascular flow voids. Pituitary fossa normal. CSF SPACES: Normal in size and contour. No hemorrhage. CEREBRUM: There is acute ischemia with associated hyperintense T2 FLAIR signal in subtle hyperintense T2 signal in the left parietal lobe gyri and subcortical white matter and involving the posterior pa rt of the left insular cortex. No intracranial hemorrhage or breakdown products of hemorrhage. No s ignificant edema or mass effect. No underlying mass lesion. Mild patchy hyperintense T2 FLAIR signa l in the deep white matter. Normal flow voids on T2 of the intracranial vasculature. POSTERIOR FOSSA: No signal alteration. No hemorrhage. No edema, masses or mass effect. Internal jarrod tory canals, cerebello-pontine angles, mastoids normal. DIFFUSION IMAGING: There is positive restricted diffusion in the left parietal lobe in the areas of a bnormal T2 signal. ORBITS: No masses. Globes normal. PARANASAL SINUSES: No fluid levels. Mucosa normal. OTHER: No other significant finding. IMPRESSION: Acute to subacute ischemia in the left parietal lobe, left MCA distribution. No intracr anial hemorrhage or significant mass effect. EVIDENCE OF ACUTE STROKE: YES. LEFT MCA COMMENT: Findings were called to the RN caring for the patient on 12/21/2019 at 1230 hours [facility]. TECHNICAL DOCUMENTATION: JOB ID: [id number] [employer]- All Rights Reserved Reading location - IP/workstation name: [email or web address]
[2019-12-21] MEDS: ENOXAPARIN SODIUM INJ 60 MG/0.6 ML DISP.SYRIN SUBCUT SCH (21:19)
[2019-12-21] MEDS: ATORVASTATIN CALCIUM 40 MG TABLET PO SCH (21:20)
[2019-12-21] MEDS: LORAZEPAM INJ 2 MG/1 ML VIAL IV PRN (21:20)
[2019-12-22 06:56] LABS: ABSOLUTE EOSINOPHILS # (AUTO) 0.1 10^3/uL (0.0-0.6); ABSOLUTE LYMPHOCYTES (AUTO) 1.1 10^3/uL (0.5-4.7); ABSOLUTE MONOCYTES (AUTO) 0.5 10^3/uL (0.1-1.4); BASOPHILS % (AUTO) 0.7 % (0-2); EOSINOPHILS % (AUTO) 2.4 % (0-6); HEMATOCRIT 33.7 % (36.0-47.0); HEMOGLOBIN 11.3 g/dL (12.0-15.5); LYMPHOCYTES % (AUTO) 23.5 % (13-45); MEAN CORPUSCULAR HGB CONC 33.5 g/dL (32.0-36.0); MEAN CORPUSCULAR VOLUME 92 fl (80-97); MONOCYTES % (AUTO) 10.7 % (3-13); PLATELET COUNT 188 10^3/uL (150-450); RED BLOOD COUNT 3.65 10^6/uL (3.72-5.28); RED CELL DISTRIBUTION WIDTH 16.1 % (11.5-14.0); SEGMENTED NEUTROPHILS % (AUTO) 62.7 % (42-78); TOTAL CELLS COUNTED % (AUTO) 100 %; WHITE BLOOD COUNT 4.7 10^3/uL (4.0-10.5)
[2019-12-22 07:19] LABS: ANION GAP 8 (5-19); BLOOD UREA NITROGEN 11 mg/dL (7-20); CALCIUM 8.9 mg/dL (8.4-10.2); CARBON DIOXIDE 23 mmol/L (22-30); CHLORIDE 105 mmol/L (98-107); GLUCOSE 83 mg/dL (75-110); POTASSIUM 4.2 mmol/L (3.6-5.0)
[2019-12-22] MEDS ORDERED: INFLUENZA QUAD (6MOS+) 2020-21 VAC 0.5 ML SYR IM ONE (08:00)
[2019-12-22] MEDS: DOCUSATE SODIUM 100 MG CAPSULE PO SCH (10:35)
[2019-12-22] MEDS: ENOXAPARIN SODIUM INJ 60 MG/0.6 ML DISP.SYRIN SUBCUT SCH ×2 (10:35→22:22)
[2019-12-22] MEDS: LISINOPRIL 5 MG TABLET PO SCH (10:35)
[2019-12-22] MEDS: ASPIRIN 81 MG TABLET, CHEWABLE PO SCH (10:35)
--- NOTE | 2019-12-22 13:08 | PDOC PROGRESS REPORT ---
Subjective Date:: 12/22/19 Subjective:: The patient was trying to eat some of her lunch but is spilling food. She appears frustrated as her expressive component of aphasia is slightly improved but still significant. This makes communication very difficult. We did discuss options at discharge including short-term rehab versus going home. Reason For Visit: SUSPECTED ACUTE CVA,ETOH WITHDRAWEL AND DEPENDENCY Physical Exam Vital Signs: Temp Pulse Resp BP Pulse Ox 97.9 F 82 18 94/62 L 96 12/22/19 11:19 12/22/19 12:00 12/22/19 12:00 12/22/19 12:00 12/22/19 12:00 Intake & Output 12/21/19 12/22/19 12/23/19 06:59 06:59 06:59 Intake Total 500 250 Balance 500 250 Weight 48 kg 48.6 kg General appearance: PRESENT: cooperative, mild distress - Frustration is ev ident., thin, well-developed Head exam: PRESENT: atraumatic, normocephalic Ear exam: PRESENT: normal external ear exam. ABSENT: bleeding, drainage Mouth exam: PRESENT: moist, tongue midline, other - Saliva with bits of food leaking from the right corner of her mouth. Respiratory exam: PRESENT: clear to auscultation melissa, symmetrical, unlabored. ABSENT: rales, rhonchi, tachypnea, wheezes Cardiovascular exam: PRESENT: RRR, +S1, +S2. ABSENT: bradycardia, diastolic murmur, irregular rhythm, systolic murmur, tachycardia GI/Abdominal exam: PRESENT: normal bowel sounds, soft. 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 She was able to hold her right leg off the bed without drift., aphasic - She does seem to appreciate my portion of the conversation. She is able to shake her head with yes and no answers and there are some parts of her conversation that are comprehensible. Psychiatric exam: PRESENT: flat affect. ABSENT: agitated, anxious Skin exam: PRESENT: dry, normal color, warm Results Laboratory Results: 12/22/19 06:34 12/22/19 06:34 12/22/19 12/22/19 06:34 06:34 WBC 4.7 RBC 3.65 L Hgb 11.3 L Hct 33.7 L MCV 92 MCH 31.0 MCHC 33.5 RDW 16.1 H Plt Count 188 Seg Neutrophils % 62.7 Sodium 135.5 L Potassium 4.2 Chloride 105 Carbon Dioxide 23 Anion Gap 8 BUN 11 Creatinine 0.98 Est GFR ( Amer) > 60 Glucose 83 Calcium 8.9 12/20/19 12/20/19 12/20/19 15:52 15:52 18:43 Creatine Kinase < 20 L CK-MB (CK-2) 0.49 Troponin I 0.052 Cancelled 12/20/19 12/21/19 12/21/19 20:00 02:10 08:07 Creatine Kinase CK-MB (CK-2) Troponin I 0.068 0.093 0.073 Impressions: Chest X-Ray 12/20/19 15:59 IMPRESSION: NO ACUTE RADIOGRAPHIC FINDING IN THE CHEST. Head CT 12/20/19 15:59 IMPRESSION: CHRONIC CHANGES OF ATROPHY AND MICROVASCULAR ISCHEMIA. NO ACUTE PROCESS. EVIDENCE OF ACUTE STROKE: NO. Head CTA 12/20/19 16:37 IMPRESSION: NO CTA EVIDENCE OF STENOSIS OR ANEURYSM OF THE BLACKFEET OF [place]. Neck CTA 12/20/19 16:37 IMPRESSION: NORMAL CTA OF THE EXTRA-CRANIAL CAROTID AND VERTEBRAL ARTERIES. Venous Doppler Study 12/20/19 21:08 IMPRESSION: Findings positive for acute right lower extremity DVT. 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 copyright 2010 [employer]- All Rights Reserved Head MRI 12/21/19 00:00 IMPRESSION: Acute to subacute ischemia in the left parietal lobe, left MCA distribution. No intracranial hemorrhage or significant mass effect. EVIDENCE OF ACUTE STROKE: YES. LEFT MCA Assessment and Plan - Diagnosis (1) Left acute arterial ischemic stroke, MCA (middle cerebral artery) Is this a current diagnosis for this admission?: Yes (2) Deep vein thrombosis (DVT) of popliteal vein of right lower extremity Qualifiers: Chronicity: acute Qualified Code(s): I82.431 - Acute embolism and t hrombosis of right popliteal vein Is this a current diagnosis for this admission?: Yes (3) Hemiparesis of right dominant side due to acute cerebrovascular disease Is this a current diagnosis for this admission?: Yes (4) Alcohol dependence with withdrawal Qualifiers: Complication of substance-induced condition: uncomplicated Qualified Code(s): F10.230 - Alcohol dependence with withdrawal, uncomplicated Is this a current diagnosis for this admission?: Yes (5) Combined receptive and expressive aphasia Is this a current diagnosis for this admission?: Yes (6) Multiple falls Is this a current diagnosis for this admission?: Yes (7) HTN (hypertension) Is this a current diagnosis for this admission?: Yes (8) History of pulmonary embolus (PE) Is this a current diagnosis for this admission?: Yes (9) History of breast cancer in female Is this a current diagnosis for this admission?: Yes - Plan Summary Summary: (1) Left acute arterial ischemic stroke, MCA (middle cerebral artery) Is this a current diagnosis for this admission?: Yes (2) Deep vein thrombosis (DVT) of popliteal vein of right lower extremity Qualifiers: Chronicity: acute Qualified Code(s): I82.431 - Acute embolism and thrombosis of right popliteal vein Is this a current diagnosis for this admission?: Yes (3) Hemiparesis of right dominant side due to acute cerebrovascular disease Is this a current diagnosis for this admission?: Yes (4) Alcohol dependence with withdrawal Qualifiers: Complication of substance-induced condition: uncomplicated Qualified Code(s): F10.230 - Alcohol dependence with withdrawal, uncomplicated Is this a current diagnosis for this admission?: Yes (5) Combined receptive and expressive aphasia Is this a current diagnosis for this admission?: Yes (6) Multiple falls Is this a current diagnosis for this admission?: Yes (7) HTN (hypertension) Is this a current diagnosis for this admission?: Yes (8) History of pulmonary embolus (PE) Is this a current diagnosis for this admission?: Yes (9) History of breast cancer in female Is this a current diagnosis for this admission?: Yes 12/21/2019 Stroke-MRI reveals acute stroke in the left parietal lobe gyri and subcortical w shruthi matter in the left MCA distribution. This is consistent with the patient's right-sided weakness. The patient also has expressive and receptive aphasia. The patient is currently on aspirin. Permissive hypertension with subsequent blood pressure control. The patient also has a DVT but has had complications with anticoagulation in the past. See below. PT, OT and speech will be seeing the patient. DVT-patient has an old DVT in the left leg. This was the source of her pulmonary emboli in the past. There is a new DVT in the right popliteal and posterior tibial veins. The patient was on anticoagulation for her pulmonary emboli in the past. After a full, due to her alcoholism, she had a very large hematoma on her hip that required prolonged hospitalization and multiple transfusions. At that time her anticoagulation was stopped as the risks outweighed the benefits. Since she is still consuming alcohol at approximately 1 pint of vodka per day she is at very high risk of fall. I spoke extensively with her daughter and her daughter and granddaughter now live with the patient. They are trying to provide support for alcohol cessation. The patient's daughter reports that she had set up several appointments and then the patient refuses to go. She states that she can stop on her own which clearly is not the case. Because of the risk versus benefit I will utilize therapeutic strength Lovenox during her hospitalization. If she proceeds to short-term rehab, which is likely, consider therapeutic Lovenox for that duration but stop anticoagulation when the patient goes home. The patient will be on aspirin for the stroke. At her age and with her risk factors long-term anticoagulation is not advised. [id number] hemiparesis from stroke. PT and OT are ordered. The patient may benefit from short-term rehab. Aphasia-expressive and receptive aphasia. The patient is currently working with speech therapy. Alcohol dependence with multiple falls-as above. It is possible that this hospitalization with a contiguous short-term rehab stay can get the patient through any withdrawal and sobriety for 3 to 4 weeks might be the starting point for alcohol cessation. Hypertension-permissive blood pressure initially. The patient is not on any known antihypertensive medications. Will eventually try to achieve a goal of systolic pressure in the 130's. Will initiate therapy based on vital signs. History of breast cancer-this may have been the triggering agent for her initial DVT and pulmonary emboli. 12/22/2019 Stroke-appreciate speech therapy's input. To me she seems slightly more understandable today. I did notice some improvement in the right leg and right hand. She is having some leak of food and saliva from the right corner of her mouth. She did walk with physical therapy. Her most critical need is with speech therapy. We discussed the fact that short-term rehab would give her speech therapy much more frequently than home health. She is understanding of this. Unfortunately I found out from the mission planner that the family does not want her to go to rehab. Unfortunately this will likely slow her recovery with regard to her aphasia. DVT-as noted above I had a long discussion with the patient's daughter. I also explained to the patient today that because of multiple factors outpatient anticoagulation therapy would be very risky for her. In addition to her falls related to alcohol she does have some weakness in the right leg. We will continue anticoagulation in a supervised environment such as the hospital. At the time of discharge she will need to decide if we utilize anticoagulation for a short time. Some of this will be dependent on the home setting. Hemiparesis as an effective acute stroke-right side appears to be getting stronger Hypertension-blood pressure was down today. There are parameters to hold her medications for low blood pressure. - Time Time Spent with patient: 15-24 minutes Medications reviewed and adjusted accordingly: Yes Anticipated Discharge Disposition: Recommendation is short-term rehab. Family prefers home with home health. Anticipated Discharge Timeframe: within 48 hours
[2019-12-22] MEDS: RINGERS SOLUTION,LACTATED 1,000 ML IV PRN (16:30)
[2019-12-22] MEDS: ATORVASTATIN CALCIUM 40 MG TABLET PO SCH (22:23)
[2019-12-22] MEDS: LORAZEPAM INJ 2 MG/1 ML VIAL IV PRN (23:42)
[2019-12-23 07:50] LABS: HEMOGLOBIN 10.1 g/dL (12.0-15.5); MEAN CORPUSCULAR HEMOGLOBIN 31.5 pg (27.0-33.4); MEAN CORPUSCULAR HGB CONC 33.8 g/dL (32.0-36.0); MEAN CORPUSCULAR VOLUME 93 fl (80-97); PLATELET COUNT 194 10^3/uL (150-450); RED BLOOD COUNT 3.22 10^6/uL (3.72-5.28); RED CELL DISTRIBUTION WIDTH 15.6 % (11.5-14.0); WHITE BLOOD COUNT 3.1 10^3/uL (4.0-10.5)
[2019-12-23 08:14] LABS: ANION GAP 5 (5-19); BLOOD UREA NITROGEN 9 mg/dL (7-20); CALCIUM 8.5 mg/dL (8.4-10.2); CARBON DIOXIDE 27 mmol/L (22-30); CHLORIDE 106 mmol/L (98-107); GLUCOSE 83 mg/dL (75-110)
[2019-12-23] MEDS: DOCUSATE SODIUM 100 MG CAPSULE PO SCH (10:11)
[2019-12-23] MEDS: ENOXAPARIN SODIUM INJ 60 MG/0.6 ML DISP.SYRIN SUBCUT SCH ×2 (10:12→23:30)
[2019-12-23] MEDS: ASPIRIN 81 MG TABLET, CHEWABLE PO SCH (10:12)
[2019-12-23] MEDS: LISINOPRIL 5 MG TABLET PO SCH (10:12)
--- NOTE | 2019-12-23 13:08 | PDOC PROGRESS REPORT ---
Subjective Date:: 12/23/19 Subjective:: The patient is resting comfortably in bed. She clearly understands my questions and provides answers. Still not 100% clear but she does tend to get her message across. There is concern for the toenail on the left hallux. Reason For Visit: SUSPECTED ACUTE CVA,ETOH WITHDRAWEL AND DEPENDENCY Physical Exam Vital Signs: Temp Pulse Resp BP Pulse Ox 98.7 F 69 17 132/68 H 97 12/23/19 10:00 12/23/19 08:00 12/23/19 08:00 12/23/19 08:00 12/23/19 08:00 Intake & Output 12/22/19 12/23/19 12/24/19 06:59 06:59 06:59 Intake Total 250 1588 240 Output Total 100 Balance 250 1488 240 Weight 48.6 kg 48.7 kg General appearance: PRESENT: no acute distress, cooperative, thin, well- developed Head exam: PRESENT: atraumatic, normocephalic Ear exam: PRESENT: normal external ear exam. ABSENT: bleeding, drainage Mouth exam: PRESENT: moist, tongue midline Respiratory exam: PRESENT: clear to auscultation melissa, symmetrical, unlabored. ABSENT: rales, rhonchi, tachypnea, wheezes Cardiovascular exam: PRESENT: RRR, +S1, +S2. ABSENT: bradycardia, diastolic murmur, irregular rhythm, systolic murmur, tachycardia GI/Abdominal exam: PRESENT: normal bowel sounds, soft. ABSENT: distended, guarding, tenderness Rectal exam: PRESENT: deferred Extremities exam: PRESENT: other - Examination of the left hallux toenail reveals that the nail has avulsed from the toe. Based on the dryness of the nailbed this is not acute.. ABSENT: calf tenderness, pedal edema Musculoskeletal exam: PRESENT: ambulatory, normal inspection. ABSENT: deformity, dislocation Neurological exam: PRESENT: alert, awake, oriented to person, oriented to place, oriented to situation, CN II-XII grossly intact Psychiatric exam: PRESENT: appropriate affect. ABSENT: agitated, anxious Results Laboratory Results: 12/23/19 07:37 12/23/19 07:37 12/23/19 12/23/19 07:37 07:37 WBC 3.1 L RBC 3.22 L Hgb 10.1 L Hct 30.0 L MCV 93 MCH 31.5 MCHC 33.8 RDW 15.6 H Plt Count 194 Sodium 138.3 Potassium 4.0 Chloride 106 Carbon Dioxide 27 Anion Gap 5 BUN 9 Creatinine 0.93 Est GFR ( Amer) > 60 Glucose 83 Calcium 8.5 12/20/19 12/20/19 12/20/19 15:52 15:52 18:43 Creatine Kinase < 20 L CK-MB (CK-2) 0.49 Troponin I 0.052 Cancelled 12/20/19 12/21/19 12/21/19 20:00 02:10 08:07 Creatine Kinase CK-MB (CK-2) Troponin I 0.068 0.093 0.073 Impressions: Chest X-Ray 12/20/19 15:59 IMPRESSION: NO ACUTE RADIOGRAPHIC FINDING IN THE CHEST. Head CT 12/20/19 15:59 IMPRESSION: CHRONIC CHANGES OF ATROPHY AND MICROVASCULAR ISCHEMIA. NO ACUTE PROCESS. EVIDENCE OF ACUTE STROKE: NO. Head CTA 12/20/19 16:37 IMPRESSION: NO CTA EVIDENCE OF STENOSIS OR ANEURYSM OF THE [place] OF [place]. Neck CTA 12/20/19 16:37 IMPRESSION: NORMAL CTA OF THE EXTRA-CRANIAL CAROTID AND VERTEBRAL ARTERIES. Venous Doppler Study 12/20/19 21:08 IMPRESSION: Findings positive for acute right lower extremity DVT. 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 copyright 2011 [employer]- All Rights Reserved Head MRI 12/21/19 00:00 IMPRESSION: Acute to subacute ischemia in the left parietal lobe, left MCA distribution. No intracranial hemorrhage or significant mass effect. EVIDENCE OF ACUTE STROKE: YES. LEFT MCA Assessment and Plan - Diagnosis (1) Left acute arterial ischemic stroke, MCA (middle cerebral artery) Is this a current diagnosis for this admission?: Yes (2) Deep vein thrombosis (DVT) of popliteal vein of right lower extremity Qualifiers: Chronicity: acute Qualified Code(s): I82.431 - Acute embolism and thrombosis of right popliteal vein Is this a current diagnosis for this admission?: Yes (3) Hemiparesis of right dominant side due to acute cerebrovascular disease Is this a current diagnosis for this admission?: Yes (4) Alcohol dependence with withdrawal Qualifiers: Complication of substance-induced condition: uncomplicated Qualified Code(s): F10.230 - Alcohol dependence with withdrawal, uncomplicated Is this a current diagnosis for this admission?: Yes (5) Combined receptive and expressive aphasia Is this a current diagnosis for this admission?: Yes (6) Multiple falls Is this a current diagnosis for this admission?: Yes (7) HTN (hypertension) Is this a current diagnosis for this admission?: Yes (8) History of pulmonary embolus (PE) Is this a current diagnosis for this admission?: Yes (9) History of breast cancer in female Is this a current diagnosis for this admission?: Yes (10) Nontraumatic avulsion of toenail Is this a current diagnosis for this admission?: Yes - Plan Summary Summary: (1) Left acute arterial ischemic stroke, MCA (middle cerebral artery) Is this a current diagnosis for this admission?: Yes (2) Deep vein thrombosis (DVT) of popliteal vein of right lower extremity Qualifiers: Chronicity: acute Qualified Code(s): I82.431 - Acute embolism and thrombosis of right popliteal vein Is this a current diagnosis for this admission?: Yes (3) Hemiparesis of right dominant side due to acute cerebrovascular disease Is this a current diagnosis for this admission?: Yes (4) Alcohol dependence with withdrawal Qualifiers: Complication of substance-induced condition: uncomplicated Qualified Code(s): F10.230 - Alcohol dependence with withdrawal, uncomplicated Is this a current diagnosis for this admission?: Yes (5) Combined receptive and expressive aphasia Is this a current diagnosis for this admission?: Yes (6) Multiple falls Is this a current diagnosis for this admission?: Yes (7) HTN (hypertension) Is this a current diagnosis for this admission?: Yes (8) History of pulmonary embolus (PE) Is this a current diagnosis for this admission?: Yes (9) History of breast cancer in female Is this a current diagnosis for this admission?: Yes (10) Nontraumatic avulsion of toenail Is this a current diagnosis for this admission?: Yes 12/21/2019 Stroke-MRI reveals acute stroke in the left parietal lobe gyri and subcortical w shruthi matter in the left MCA distribution. This is consistent with the patient's right-sided weakness. The patient also has expressive and receptive aphasia. The patient is currently on aspirin. Permissive hypertension with subsequent blood pressure control. The patient also has a DVT but has had complications with anticoagulation in the past. See below. PT, OT and speech will be seeing the patient. DVT-patient has an old DVT in the left leg. This was the source of her pulmonary emboli in the past. There is a new DVT in the right popliteal and posterior tibial veins. The patient was on anticoagulation for her pulmonary emboli in the past. After a full, due to her alcoholism, she had a very large hematoma on her hip that required prolonged hospitalization and multiple transfusions. At that time her anticoagulation was stopped as the risks outweighed the benefits. Since she is still consuming alcohol at approximately 1 pint of vodka per day she is at very high risk of fall. I spoke extensively with her daughter and her daughter and granddaughter now live with the patient. They are trying to provide support for alcohol cessation. The patient's daughter reports that she had set up several appointments and then the patient refuses to go. She states that she can stop on her own which clearly is not the case. Because of the risk versus benefit I will utilize therapeutic strength Lovenox during her hospitalization. If she proceeds to short-term rehab, which is likely, consider therapeutic Lovenox for that duration but stop anticoagulation when the patient goes home. The patient will be on aspirin for the stroke. At her age and with her risk factors long-term anticoagulation is not advised. [id number] hemiparesis from stroke. PT and OT are ordered. The patient may benefit from short-term rehab. Aphasia-expressive and receptive aphasia. The patient is currently working with speech therapy. Alcohol dependence with multiple falls-as above. It is possible that this hospitalization with a contiguous short-term rehab stay can get the patient through any withdrawal and sobriety for 3 to 4 weeks might be the starting point for alcohol cessation. Hypertension-permissive blood pressure initially. The patient is not on any known antihypertensive medications. Will eventually try to achieve a goal of systolic pressure in the 130's. Will initiate therapy based on vital signs. History of breast cancer-this may have been the triggering agent for her initial DVT and pulmonary emboli. 12/22/2019 Stroke-appreciate speech therapy's input. To me she seems slightly more understandable today. I did notice some improvement in the right leg and right hand. She is having some leak of food and saliva from the right corner of her mouth. She did walk with physical therapy. Her most critical need is with speech therapy. We discussed the fact that short-term rehab would give her speech therapy much more frequently than home health. She is understanding of this. Unfortunately I found out from the liaison planner that the family does not want her to go to rehab. Unfortunately this will likely slow her recovery with regard to her aphasia. DVT-as noted above I had a long discussion with the patient's daughter. I also explained to the patient today that because of multiple factors outpatient anticoagulation therapy would be very risky for her. In addition to her falls related to alcohol she does have some weakness in the right leg. We will continue anticoagulation in a supervised environment such as the hospital. At the time of discharge she will need to decide if we utilize anticoagulation for a short time. Some of this will be dependent on the home setting. Hemiparesis as an effective acute stroke-right side appears to be getting stronger Hypertension-blood pressure was down today. There are parameters to hold her medications for low blood pressure. 12/23/2019 Stroke-improvement in strength on the right side continues. Definite improvement in the aphasia but progress is slower. Continue PT, OT and speech Family wavers about [facility] versus home. Currently prepared for [facility] however if there is a delay in the patient is appropriate we will discharged home. DVT-as above high risk for long-term anticoagulation Hypertension-blood pressures are increasing. If they are consistent then resume some of her antihypertensive medications. Left hallux toenail-the patient likely has been having pressure against the toenail and this is been for some time. The majority of the nail is detached and the nailbed is in fact dry. The lateral corner of the nail is still attached. Because the majority of the nail is not attached I explained to the patient that it is easier just for me to pull it off. It may hurt briefly but she should tolerate it. She agreed and so I gently elevated the nailbed and then just pulled quickly. The nail but she had minimal discomfort. Will provide conservative care. - Time Time Spent with patient: 15-24 minutes Medications reviewed and adjusted accordingly: Yes Anticipated [facility]charge [facility] Anticipated Discharge Timeframe: within 48 hours
[2019-12-23 15:34] LABS: APPEARANCE,URINE SLIGHTLY-CLOUDY; BILIRUBIN,URINE NEGATIVE (NEGATIVE); COLOR,URINE STRAW; GLUCOSE, URINE NEGATIVE (NEGATIVE); KETONES,URINE NEGATIVE (NEGATIVE); LEUKOCYTE ESTERASE,URINE LARGE (NEGATIVE); NITRITE,URINE NEGATIVE (NEGATIVE); PROTEIN,URINE NEGATIVE (NEGATIVE); URINE SPECIFIC GRAVITY 1.003; UROBILINOGEN,URINE NEGATIVE mg/dL (<2.0)
--- NOTE | 2019-12-23 20:17 | XCELERA REPORT ---
[address] [address] Transthoracic Echocardiogram Report Name: EYAL REED Age: 79 yrs Gender: Female : 1940 Patient Status: Inpatient [facility] Study Date: 12/23/2019 09:07 AM Height: 62 in Weight: 108 lb BSA: 1.5 m2 Procedure: A two-dimensional transthoracic echocardiogram with color flow and Doppler was performed. Study Quality: Fair. Reason For Study: CHF History: CHF. Ordering Physician: MARGIE BOWLES Performed By: Olga Nelson Interpretation Summary The left ventricle is normal in size. There is normal left ventricular wall thickness. Left ventricular systolic function is normal. LV EF is 60% to 65% The left ventricular wall motion is normal. There is no thrombus. Cannot assesss ASD,VSD ,or PFO. The right atrium is normal. The left atrial size is normal. There is no evidence of mitral valve prolapse. There is no mitral valve stenosis. There is a trace amount of mitral regurgitation There is no aortic valvular vegetation. There is no aortic valve stenosis There is no LVOT obstruction. There is a trace to mild amount of aortic regurgitation There is no tricuspid stenosis. There is a trace amount of tricuspid regurgitation Tricuspid regurgitation jet envelope not well defined to measure RV systolic pressure accurately. There is no pulmonic valvular stenosis. There is no pulmonic valvular regurgitation. The aortic root is normal size. The inferior vena cava appeared normal and decreased > 50% with respiration (RAP 5-10 mmHg) There is no pericardial effusion. MMode/2D Measurements & Calculations RVDd: 1.4 cm LVIDd: 3.9 cm FS: 31.9 % Ao root diam: 2.9 cm IVSd: 0.93 cm LVIDs: 2.7 cm EDV(Teich): 67.9 ml Ao root area: 6.6 cm2 LVPWd: 1.0 cm ESV(Teich): 26.7 ml EF(Teich): 60.6 % Doppler Measurements & Calculations MV E max lee: MV dec slope: Ao V2 max: LV V1 max P.3 cm/sec 330.8 cm/sec2 107.0 cm/sec 2.2 mmHg MV A max lee: MV dec time: 0.18 secAo max PG: LV V1 mean P.4 cm/sec 4.6 mmHg 1.2 mmHg MV E/A: 0.69 Ao V2 mean: LV V1 max: 75.1 cm/sec 74.4 cm/sec Ao mean PG: LV V1 mean: 2.5 mmHg 53.1 cm/sec Ao V2 VTI: 20.9 cm LV V1 VTI: 15.6 cm PA V2 max: 61.0 cm/sec PA max P.5 mmHg Left Ventricle The left ventricle is normal in size. There is normal left ventricular wall thickness. Left ventricular systolic function is normal. LV EF is 60% to 65%. Doppler measurements suggest impaired left ventricular relaxation, which is associated with grade I/IV or mild diastolic dysfunction. The left ventricular wall motion is normal. There is no thrombus. Cannot assesss ASD,VSD ,or PFO. Right Ventricle The right ventricle is normal in size and function. Atria The right atrium is normal. The left atrial size is normal. Mitral Valve There is no evidence of mitral valve prolapse. There is no vegetation seen on the mitral valve. There is no mitral valve stenosis. There is a trace amount of mitral regurgitation. Aortic Valve There is no aortic valvular vegetation. There is no aortic valve stenosis. There is no LVOT obstruction. There is a trace to mild amount of aortic regurgitation. Tricuspid Valve There is no tricuspid stenosis. There is a trace amount of tricuspid regurgitation. Tricuspid regurgitation jet envelope not well defined to measure RV systolic pressure accurately. Pulmonic Valve There is no pulmonic valvular stenosis. There is no pulmonic valvular regurgitation. Great Vessels The aortic root is normal size. The inferior vena cava appeared normal and decreased > 50% with respiration (RAP 5-10 mmHg). Effusions There is no pericardial effusion. : MARGIE BOWLES Lakshmi
[2019-12-23] MEDS: ATORVASTATIN CALCIUM 40 MG TABLET PO SCH (23:31)
[2019-12-24] MEDS: LISINOPRIL 5 MG TABLET PO SCH (10:37)
[2019-12-24] MEDS: ASPIRIN 81 MG TABLET, CHEWABLE PO SCH (10:37)
[2019-12-24] MEDS: DOCUSATE SODIUM 100 MG CAPSULE PO SCH (10:37)
[2019-12-24] MEDS: ENOXAPARIN SODIUM INJ 60 MG/0.6 ML DISP.SYRIN SUBCUT SCH ×2 (10:38→21:36)
--- NOTE | 2019-12-24 12:14 | PDOC PROGRESS REPORT ---
Subjective Date:: 12/24/19 Subjective:: Patient has been ambulating. Balance is still an issue. The biggest frustration is with her speech. Reason For Visit: SUSPECTED ACUTE CVA,ETOH WITHDRAWEL AND DEPENDENCY Physical Exam Vital Signs: Temp Pulse Resp BP Pulse Ox 97.6 F 80 16 105/62 97 12/24/19 09:05 12/24/19 09:05 12/24/19 09:05 12/24/19 09:05 12/24/19 09:05 Intake & Output 12/23/19 12/24/19 12/25/19 06:59 06:59 06:59 Intake Total 1588 480 Output Total 100 Balance 1488 480 Weight 48.7 kg 50.7 kg General appearance: PRESENT: cooperative, mild distress - Very frustrated, well- developed Respiratory exam: PRESENT: clear to auscultation melissa, symmetrical, unlabored. ABSENT: rales, rhonchi, tachypnea, wheezes Cardiovascular exam: PRESENT: RRR, +S1, +S2. ABSENT: bradycardia, diastolic murmur, irregular rhythm, systolic murmur, tachycardia GI/Abdominal exam: PRESENT: normal bowel sounds, soft. ABSENT: distended, guarding, tenderness Extremities exam: ABSENT: pedal edema Musculoskeletal exam: PRESENT: ambulatory - With walker. Balance issues., normal inspection. ABSENT: deformity, dislocation Neurological exam: PRESENT: alert, awake, oriented to person, aphasic, other - Difficult to assess full orientation due to aphasia Psychiatric exam: PRESENT: anxious - Very frustrated with aphasia Results Laboratory Results: 12/23/19 07:37 12/23/19 07:37 12/23/19 14:42 Urine Color STRAW Urine Appearance SLIGHTLY-CLOUDY Urine pH 7.0 Ur Specific [place] 1.003 Urine Protein NEGATIVE Urine Glucose (UA) NEGATIVE Urine Ketones NEGATIVE Urine Blood SMALL H Urine Nitrite NEGATIVE Ur Leukocyte Esterase LARGE H Urine WBC (Auto) 62 Urine RBC (Auto) 10 12/20/19 12/20/19 12/20/19 15:52 15:52 18:43 Creatine Kinase < 20 L CK-MB (CK-2) 0.49 Troponin I 0.052 Cancelled 12/20/19 12/21/19 12/21/19 20:00 02:10 08:07 Creatine Kinase CK-MB (CK-2) Troponin I 0.068 0.093 0.073 Impressions: Chest X-Ray 12/20/19 15:59 IMPRESSION: NO ACUTE RADIOGRAPHIC FINDING IN THE CHEST. Head CT 12/20/19 15:59 IMPRESSION: CHRONIC CHANGES OF ATROPHY AND MICROVASCULAR ISCHEMIA. NO ACUTE PROCESS. EVIDENCE OF ACUTE STROKE: NO. Head CTA 12/20/19 16:37 IMPRESSION: NO CTA EVIDENCE OF STENOSIS OR ANEURYSM OF THE [place]. Neck CTA 12/20/19 16:37 IMPRESSION: NORMAL CTA OF THE EXTRA-CRANIAL CAROTID AND VERTEBRAL ARTERIES. Venous Doppler Study 12/20/19 21:08 IMPRESSION: Findings positive for acute right lower extremity DVT. 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 copyright 2010 [employer]- All Rights Reserved Head MRI 12/21/19 00:00 IMPRESSION: Acute to subacute ischemia in the left parietal lobe, left MCA distribution. No intracranial hemorrhage or significant mass effect. EVIDENCE OF ACUTE STROKE: YES. LEFT MCA Assessment and Plan - Diagnosis (1) Left acute arterial ischemic stroke, MCA (middle cerebral artery) Is this a current diagnosis for this admission?: Yes (2) Deep vein thrombosis (DVT) of popliteal vein of right lower extremity Qualifiers: Chronicity: acute Qualified Code(s): I82.431 - Acute embolism and thrombosis of right popliteal vein Is this a current diagnosis for this admission?: Yes (3) Hemiparesis of right dominant side due to acute cerebrovascular disease Is this a current diagnosis for this admission?: Yes (4) Alcohol dependence with withdrawal Qualifiers: Complication of substance-induced condition: uncomplicated Qualified Code(s): F10.230 - Alcohol dependence with withdrawal, uncomplicated Is this a current diagnosis for this admission?: Yes (5) Combined receptive and expressive aphasia Is this a current diagnosis for this admission?: Yes (6) Multiple falls Is this a current diagnosis for this admission?: Yes (7) HTN (hypertension) Is this a current diagnosis for this admission?: Yes (8) History of pulmonary embolus (PE) Is this a current diagnosis for this admission?: Yes (9) History of breast cancer in female Is this a current diagnosis for this admission?: Yes (10) Nontraumatic avulsion of toenail Is this a current diagnosis for this admission?: Yes - Plan Summary Summary: (1) Left acute arterial ischemic stroke, MCA (middle cerebral artery) Is this a current diagnosis for this admission?: Yes (2) Deep vein thrombosis (DVT) of popliteal vein of right lower extremity Qualifiers: Chronicity: acute Qualified Code(s): I82.431 - Acute embolism and thr ombosis of right popliteal vein Is this a current diagnosis for this admission?: Yes (3) Hemiparesis of right dominant side due to acute cerebrovascular disease Is this a current diagnosis for this admission?: Yes (4) Alcohol dependence with withdrawal Qualifiers: Complication of substance-induced condition: uncomplicated Qualified Code(s): F10.230 - Alcohol dependence with withdrawal, uncomplicated Is this a current diagnosis for this admission?: Yes (5) Combined receptive and expressive aphasia Is this a current diagnosis for this admission?: Yes (6) Multiple falls Is this a current diagnosis for this admission?: Yes (7) HTN (hypertension) Is this a current diagnosis for this admission?: Yes (8) History of pulmonary embolus (PE) Is this a current diagnosis for this admission?: Yes (9) History of breast cancer in female Is this a current diagnosis for this admission?: Yes (10) Nontraumatic avulsion of toenail Is this a current diagnosis for this admission?: Yes 12/21/2019 Stroke-MRI reveals acute stroke in the left parietal lobe gyri and subcortical white matter in the left MCA distribution. This is consistent with the patient's right-sided weakness. The patient also has expressive and receptive aphasia. The patient is currently on aspirin. Permissive hypertension with subsequent blood pressure control. The patient also has a DVT but has had complications with anticoagulation in the past. See below. PT, OT and speech w ill be seeing the patient. DVT-patient has an old DVT in the left leg. This was the source of her pulmonary emboli in the past. There is a new DVT in the right popliteal and posterior tibial veins. The patient was on anticoagulation for her pulmonary emboli in the past. After a full, due to her alcoholism, she had a very large hematoma on her hip that required prolonged hospitalization and multiple transfusions. At that time her anticoagulation was stopped as the risks outweighed the benefits. Since she is still consuming alcohol at approximately 1 pint of vodka per day she is at very high risk of fall. I spoke extensively with her daughter and her daughter and granddaughter now live with the patient. They are trying to provide support for alcohol cessation. The patient's daughter reports that she had set up several appointments and then the patient refuses to go. She states that she can stop on her own which clearly is not the case. Because of the risk versus benefit I will utilize therapeutic strength Lovenox during her hospitalization. If she proceeds to short-term rehab, which is likely, consider therapeutic Lovenox for that duration but stop anticoagulation when the patient goes home. The patient will be on aspirin for the stroke. At her age and with her risk factors long-term anticoagulation is not advised. [id number] hemiparesis from stroke. PT and OT are ordered. The patient may benefit from short-term rehab. Aphasia-expressive and receptive aphasia. The patient is currently working with speech therapy. Alcohol dependence with multiple falls-as above. It is possible that this hospitalization with a contiguous short-term rehab stay can get the patient through any withdrawal and sobriety for 3 to 4 weeks might be the starting point for alcohol cessation. Hypertension-permissive blood pressure initially. The patient is not on any known antihypertensive medications. Will eventually try to achieve a goal of systolic pressure in the 130's. Will initiate therapy based on vital signs. History of breast cancer-this may have been the triggering agent for her initial DVT and pulmonary emboli. 12/22/2019 Stroke-appreciate speech therapy's input. To me she seems slightly more understandable today. I did notice some improvement in the right leg and right hand. She is having some leak of food and saliva from the right corner of her mouth. She did walk with physical therapy. Her most critical need is with speech therapy. We discussed the fact that short-term rehab would give her speech therapy much more frequently than home health. She is understanding of this. Unfortunately I found out from the community planner that the family does not want her to go to rehab. Unfortunately this will likely slow her recovery with regard to her aphasia. DVT-as noted above I had a long discussion with the patient's daughter. I also explained to the patient today that because of multiple factors outpatient anticoagulation therapy would be very risky for her. In addition to her falls related to alcohol she does have some weakness in the right leg. We will continue anticoagulation in a supervised environment such as the hospital. At the time of discharge she will need to decide if we utilize anticoagulation for a short time. Some of this will be dependent on the home setting. Hemiparesis as an effective acute stroke-right side appears to be getting stronger Hypertension-blood pressure was down today. There are parameters to hold her medications for low blood pressure. 12/23/2019 Stroke-improvement in strength on the right side continues. Definite improve ment in the aphasia but progress is slower. Continue PT, OT and speech Family wavers about [facility] versus home. Currently prepared for [facility] however if there is a delay in the patient is appropriate we will discharged home. DVT-as above high risk for long-term anticoagulation Hypertension-blood pressures are increasing. If they are consistent then resume some of her antihypertensive medications. Left hallux toenail-the patient likely has been having pressure against the toen ail and this is been for some time. The majority of the nail is detached and the nailbed is in fact dry. The lateral corner of the nail is still attached. Because the majority of the nail is not attached I explained to the patient that it is easier just for me to pull it off. It may hurt briefly but she should tolerate it. She agreed and so I gently elevated the nailbed and then just pulled quickly. The nail but she had minimal discomfort. Will provide conservative care. 12/24/2019 Review PT, OT and speech therapy notes. Greatest deficit is still with speech therapy. Patient walked 100 feet with a walker with balance issues and needed some cueing. Plan is for discharge tomorrow. Trying to determine equipment needed as well as the most efficient option regarding inpatient versus outpatient therapy. DVT-as discussed above risk of falls with the bleed are quite high with this patient. Will discharge on aspirin. Will encourage compression socks as well. Hypertension-continue current regimen - Time Time Spent with patient: 25-34 minutes - Extensive discussion with the patient and her daughter. Many questions. Patient very frustrated with inability to communicate Medications reviewed and adjusted accordingly: Yes Anticipated Discharge Disposition: Home healt Anticipated Discharge Timeframe: within 24 hours
[2019-12-24] MEDS: ATORVASTATIN CALCIUM 40 MG TABLET PO SCH (21:36)
[2019-12-25] MEDS: RINGERS SOLUTION,LACTATED 1,000 ML IV PRN (05:33)
[2019-12-25 06:41] LABS: HEMATOCRIT 32.6 % (36.0-47.0); HEMOGLOBIN 10.8 g/dL (12.0-15.5); MEAN CORPUSCULAR HGB CONC 33.2 g/dL (32.0-36.0); MEAN CORPUSCULAR VOLUME 94 fl (80-97); PLATELET COUNT 211 10^3/uL (150-450); RED BLOOD COUNT 3.49 10^6/uL (3.72-5.28); RED CELL DISTRIBUTION WIDTH 15.4 % (11.5-14.0); WHITE BLOOD COUNT 3.1 10^3/uL (4.0-10.5)
[2019-12-25] MEDS: LISINOPRIL 5 MG TABLET PO SCH (11:08)
[2019-12-25] MEDS: ENOXAPARIN SODIUM INJ 60 MG/0.6 ML DISP.SYRIN SUBCUT SCH (11:09)
[2019-12-25] MEDS: ASPIRIN 81 MG TABLET, CHEWABLE PO SCH (11:09)
[2019-12-25] MEDS: DOCUSATE SODIUM 100 MG CAPSULE PO SCH (11:09)
--- NOTE | 2019-12-25 12:11 | PDOC DISCHARGE SUMMARY ---
Impression - Admit/DC Date/PCP Admission Date/Primary Care Provider: 12/20/19 21:56 Discharge Date: 12/25/19 - Discharge Diagnosis (1) Left acute arterial ischemic stroke, MCA (middle cerebral artery) Is this a current diagnosis for this admission?: Yes (2) Aphasia Is this a current diagnosis for this admission?: Yes (3) Deep vein thrombosis (DVT) of popliteal vein of right lower extremity Is this a current diagnosis for this admission?: Yes (4) Hemiparesis of right dominant side due to acute cerebrovascular disease Is this a current diagnosis for this admission?: Yes (5) Alcohol dependence with withdrawal Is this a current diagnosis for this admission?: Yes (6) History of breast cancer in female Is this a current diagnosis for this admission?: Yes (7) History of pulmonary embolus (PE) Is this a current diagnosis for this admission?: Yes (8) Multiple falls Is this a current diagnosis for this admission?: Yes (9) Nontraumatic avulsion of toenail Is this a current diagnosis for this admission?: Yes - Additional Information Resuscitation Status: Do Not Resuscitate Referrals: APOLINAR NOLAN MD [ACTIVE STAFF] - 01/14/20 11:00 am Prescriptions: Apixaban [Eliquis 5 mg Tablet] 5 mg PO Q12 #60 tablet Atorvastatin Calcium [Lipitor 40 mg Tablet] 40 mg PO QHS #30 tablet Lisinopril [Prinivil 5 mg Tablet] 5 mg PO DAILY #30 tablet Home Medications: Apixaban [Eliquis 5 mg Tablet] 5 mg PO Q12 #60 tablet 12/25/19 Atorvastatin Calcium [Lipitor 40 mg Tablet] 40 mg PO QHS #30 tablet 12/25/19 Lisinopril [Prinivil 5 mg Tablet] 5 mg PO DAILY #30 tablet 12/25/19 History of Present Illiness History of Present Illness: According to admitting provider: EYAL REED is a 79 year old female with past medical history significant for history of alcohol withdrawal and abuse with dependency, HTN, breast cancer x2 status post lumpectomy, history of bilateral PE off anticoagulation who presents with a 1 day history persistent expressive aphasia and right facial droop patient reportedly last seen normal at approximately 11 AM. Patient brought to ED by EMS and was not a candidate for TPA. CT head and head/neck CTA head did not show any acute or significant flow restrictions, no evidence of bleeding or other acute process. EKG showed normal sinus rhythm without acute changes. Troponin minimally elevated at 0.052 and patient denies any chest pain. Per daughter, patient has an extremely long history of alcohol abuse and when she drinks at least a pint of vodka per day for many years. Patient was previously diagnosed with bilateral PE when she had breast cancer and she was subsequently taken off Coumadin due to falling and having a hip hematoma presumably due to alcohol abuse and alcohol-related ataxia. She does not take aspirin every day. Denies fever/chills/chest pain/shortness of breath/diarrhea/vomiting. Denies any sick contacts or Covid exposure. Patient will be admitted for neuro checks and stroke work-up however she will also need several days of inpatient stay for what very well could be severe alcohol withdrawal. Per daughter, patient has had alcohol withdrawal in the past and she became extremely combative and confused. ROS is extremely limited due to patient's expressive aphasia. Patient and daughter both agree that she wants to be DNR/DNI. Hospital Course Hospital Course: 12/21/2019 Stroke-MRI reveals acute stroke in the left parietal lobe gyri and subcortical white matter in the left MCA distribution. This is consistent with the patient's right-sided weakness. The patient also has expressive and receptive aphasia. The patient is currently on aspirin. Permissive hypertension with subsequent blood pressure control. The patient also has a DVT but has had complications with anticoagulation in the past. See below. PT, OT and speech will be seeing the patient. DVT-patient has an old DVT in the left leg. This was the source of her pulmonary emboli in the past. There is a new DVT in the right popliteal and posterior tibial veins. The patient was on anticoagulation for her pulmonary emboli in the past. After a full, due to her alcoholism, she had a very large hematoma on her hip that required prolonged hospitalization and multiple transfusions. At that time her anticoagulation was stopped as the risks outweighed the benefits. Since she is still consuming alcohol at approximately 1 pint of vodka per day she is at very high risk of fall. I spoke extensively with her daughter and her daughter and granddaughter now live with the patient. They are trying to provide support for alcohol cessation. The patient's daughter reports that she had set up several appointments and then the patient refuses to go. She states that she can stop on her own which clearly is not the case. Because of the risk versus benefit I will utilize therapeutic strength Lovenox during her hospitalization. If she proceeds to short-term rehab, which is likely, consider therapeutic Lovenox for that duration but stop anticoagulation when the patient goes home. The patient will be on aspirin for the stroke. At her age and with her risk factors long-term anticoagulation is not advised. [id number] hemiparesis from stroke. PT and OT are ordered. The patient may benefit from short-term rehab. Aphasia-expressive and receptive aphasia. The patient is currently working with speech therapy. Alcohol dependence with multiple falls-as above. It is possible that this hospitalization with a contiguous short-term rehab stay can get the patient through any withdrawal and sobriety for 3 to 4 weeks might be the starting point for alcohol cessation. Hypertension-permissive blood pressure initially. The patient is not on any known antihypertensive medications. Will eventually try to achieve a goal of systolic pressure in the 130's. Will initiate therapy based on vital signs. History of breast cancer-this may have been the triggering agent for her initial DVT and pulmonary emboli. 12/22/2019 Stroke-appreciate speech therapy's input. To me she seems slightly more understandable today. I did notice some improvement in the right leg and right hand. She is having some leak of food and saliva from the right corner of her mouth. She did walk with physical therapy. Her most critical need is with speech therapy. We discussed the fact that short-term rehab would give her speech therapy much more frequently than home health. She is understanding of this. Unfortunately I found out from the planner intern that the family does not want her to go to rehab. Unfortunately this will likely slow her recovery with regard to her aphasia. DVT-as noted above I had a long discussion with the patient's daughter. I also explained to the patient today that because of multiple factors outpatient anticoagulation therapy would be very risky for her. In addition to her falls related to alcohol she does have some weakness in the right leg. We will continue anticoagulation in a supervised environment such as the hospital. At the time of discharge she will need to decide if we utilize anticoagulation for a short time. Some of this will be dependent on the home setting. Hemiparesis as an effective acute stroke-right side appears to be getting stronger Hypertension-blood pressure was down today. There are parameters to hold her medications for low blood pressure. 12/23/2019 Stroke-improvement in strength on the right side continues. Definite improvement in the aphasia but progress is slower. Continue PT, OT and speech Family wavers about [facility] versus home. Currently prepared for [facility] however if there is a delay in the patient is appropriate we will discharged home. DVT-as above high risk for long-term anticoagulation Hypertension-blood pressures are increasing. If they are consistent then resume some of her antihypertensive medications. Left hallux toenail-the patient likely has been having pressure against the toenail and this is been for some time. The majority of the nail is detached and the nailbed is in fact dry. The lateral corner of the nail is still attached. Because the majority of the nail is not attached I explained to the patient that it is easier just for me to pull it off. It may hurt briefly but she should tolerate it. She agreed and so I gently elevated the nailbed and then just pulled quickly. The nail but she had minimal discomfort. Will provide conservative care. 12/24/2019 Review PT, OT and speech therapy notes. Greatest deficit is still with speech therapy. Patient walked 100 feet with a walker with balance issues and needed some cueing. Plan is for discharge tomorrow. Trying to determine equipment needed as well as the most efficient option regarding inpatient versus outpatient therapy. DVT-as discussed above risk of falls with the bleed are quite high with this patient. Will discharge on aspirin. Will encourage compression socks as well. Hypertension-continue current regimen 12/25/2019 Patient has done very well with physical and occupational therapy and actually has been cleared for discharge home by PT. Have discussed with patient and patient's nurse this morning who both informed me that patient is ambulating freely on her own without really requiring any assistive devices. The patient still has residual weakness, her most bothersome deficits is her significant expressive aphasia. She does seem to follow commands well so I am not certain if there is much if any receptive aphasia at all. She will be discharged on aspirin and atorvastatin. Also started on lisinopril for blood blood pressure control. Have held off on initiating short-term Plavix for stroke as patient is being initiated on Eliquis for DVT. I discussed with patient as well as patient's daughter today about her DVT and giving her history of bilateral PE, it may be prudent to put her on anticoagulation at least for treatment of acute DVT. I have explained the significant risks of bleeding especially in light of patient's history of falls and alcohol abuse. Patient states that she will completely refrain from drinking and they have made a shared decision to proceed with anticoagulation understanding the risks. She will be discharged with [facility]. technical planner will be giving coupons to cover first month if available. Physical Exam Vital Signs: Temp Pulse Resp BP Pulse Ox 97.9 F 78 20 140/77 H 99 12/25/19 08:11 12/25/19 08:11 12/25/19 08:11 12/25/19 08:11 12/25/19 08:11 Intake & Output 12/24/19 12/25/19 12/26/19 06:59 06:59 06:59 Intake Total 480 950 Balance 480 950 Weight 50.7 kg 51 kg General appearance: PRESENT: no acute distress, cooperative Neck exam: ABSENT: JVD Respiratory exam: PRESENT: clear to auscultation melissa, unlabored. ABSENT: accessory muscle use, wheezes Cardiovascular exam: PRESENT: +S1, +S2. ABSENT: tachycardia GI/Abdominal exam: PRESENT: soft. ABSENT: tenderness Neurological exam: PRESENT: alert, awake, aphasic - Seems to be mostly expressive. She is able to follow commands. Results Laboratory Results: WBC 3.1 10^3/uL (4.0-10.5) L 12/25/19 06:20 RBC 3.49 10^6/uL (3.72-5.28) L 12/25/19 06:20 Hgb 10.8 g/dL (12.0-15.5) L 12/25/19 06:20 Hct 32.6 % (36.0-47.0) L 12/25/19 06:20 MCV 94 fl (80-97) 12/25/19 06:20 MCH 31.0 pg (27.0-33.4) 12/25/19 06:20 MCHC 33.2 g/dL (32.0-36.0) 12/25/19 06:20 RDW 15.4 % (11.5-14.0) H 12/25/19 06:20 Plt Count 211 10^3/uL (150-450) 12/25/19 06:20 Lymph % (Auto) 23.5 % (13-45) 12/22/19 06:34 [place]ock % (Auto) 10.7 % (3-13) 12/22/19 06:34 Eos % (Auto) 2.4 % (0-6) 12/22/19 06:34 Baso % (Auto) 0.7 % (0-2) 12/22/19 06:34 Absolute Neuts (auto) 3.0 10^3/uL (1.7-8.2) 12/22/19 06:34 Absolute Lymphs (auto) 1.1 10^3/uL (0.5-4.7) 12/22/19 06:34 Absolute Monos (auto) 0.5 10^3/uL (0.1-1.4) 12/22/19 06:34 Absolute Eos (auto) 0.1 10^3/uL (0.0-0.6) 12/22/19 06:34 Absolute Basos (auto) 0.0 10^3/uL (0.0-0.2) 12/22/19 06:34 Seg Neutrophils % 62.7 % (42-78) 12/22/19 06:34 PT 11.9 SEC (11.4-15.4) 12/20/19 15:52 INR 0.86 12/20/19 15:52 APTT 25.9 SEC (23.5-35.8) 12/20/19 15:52 Sodium 138.3 mmol/L (137-145) 12/23/19 07:37 Potassium 4.0 mmol/L (3.6-5.0) 12/23/19 07:37 Chloride 106 mmol/L (98-107) 12/23/19 07:37 Carbon Dioxide 27 mmol/L (22-30) 12/23/19 07:37 Anion Gap 5 (5-19) 12/23/19 07:37 BUN 9 mg/dL (7-20) 12/23/19 07:37 Creatinine 0.93 mg/dL (0.52-1.25) 12/23/19 07:37 Est GFR ( Amer) > 60 (>60) 12/23/19 07:37 Est GFR (MDRD) Non-Af 58 (>60) L 12/23/19 07:37 Glucose 83 mg/dL (75-110) 12/23/19 07:37 POC Glucose 95 mg/dL (70-110) 12/20/19 16:32 Calcium 8.5 mg/dL (8.4-10.2) 12/23/19 07:37 Phosphorus 3.4 mg/dL (2.5-4.5) 12/21/19 08:07 Magnesium 1.8 mg/dL (1.6-2.3) 12/21/19 08:07 Total Bilirubin 0.3 mg/dL (0.2-1.3) 12/20/19 15:52 Direct Bilirubin 0.1 mg/dL (0.0-0.4) 12/20/19 15:52 Neonat Total Bilirubin Not Reportable 12/20/19 15:52 Neonat Direct Bilirubin Not Reportable 12/20/19 15:52 Neonat Indirect Bili Not Reportable 12/20/19 15:52 AST 19 U/L (14-36) 12/20/19 15:52 ALT 6 U/L (<35) 12/20/19 15:52 Alkaline Phosphatase 87 U/L (38-126) 12/20/19 15:52 Creatine Kinase < 20 U/L (30-135) L 12/20/19 15:52 CK-MB (CK-2) 0.49 ng/mL (<4.55) 12/20/19 15:52 Troponin I 0.073 ng/mL 12/21/19 08:07 Total Protein 6.6 g/dL (6.3-8.2) 12/20/19 15:52 Albumin 3.4 g/dL (3.5-5.0) L 12/20/19 15:52 Triglycerides 128 mg/dL (<150) 12/21/19 08:07 Cholesterol 127.15 mg/dL (0-200) 12/21/19 08:07 LDL Cholesterol Direct 69 mg/dL (<100) 12/21/19 08:07 VLDL Cholesterol 26.0 mg/dL (10-31) 12/21/19 08:07 HDL Cholesterol 38 mg/dL (>40) L 12/21/19 08:07 Urine Color STRAW 12/23/19 14:42 Urine Appearance SLIGHTLY-CLOUDY 12/23/19 14:42 Urine pH 7.0 (5.0-9.0) 12/23/19 14:42 Ur Specific [place] 1.003 12/23/19 14:42 Urine Protein NEGATIVE mg/dL (NEGATIVE) 12/23/19 14:42 Urine Glucose (UA) NEGATIVE mg/dL (NEGATIVE) 12/23/19 14:42 Urine Ketones NEGATIVE mg/dL (NEGATIVE) 12/23/19 14:42 Urine Blood SMALL (NEGATIVE) H 12/23/19 14:42 Urine Nitrite NEGATIVE (NEGATIVE) 12/23/19 14:42 Urine Bilirubin NEGATIVE (NEGATIVE) 12/23/19 14:42 Urine Urobilinogen NEGATIVE mg/dL (<2.0) 12/23/19 14:42 Ur Leukocyte Esterase LARGE (NEGATIVE) H 12/23/19 14:42 Urine WBC (Auto) 62 /HPF 12/23/19 14:42 Urine RBC (Auto) 10 /HPF 12/23/19 14:42 Urine Bacteria (Auto) TRACE /HPF 12/23/19 14:42 Urine WBC Clumps FEW /HPF 12/23/19 14:42 Squamous Epi Cells Auto <1 /HPF 12/23/19 14:42 Urine Ascorbic Acid NEGATIVE (NEGATIVE) 12/23/19 14:42 Serum Alcohol < 10 mg/dL (NONE DETECTED) 12/20/19 15:52 COVID-19 Source See comment 12/23/19 15:31 COVID-19 (ANITHA) Not Detected (Not Detect) 12/23/19 15:31 12/20/19 12/20/19 12/20/19 15:52 18:43 20:00 CK-MB (CK-2) 0.49 Troponin I 0.052 Cancelled 0.068 12/21/19 12/21/19 02:10 08:07 CK-MB (CK-2) Troponin I 0.093 0.073 Impressions: Chest X-Ray 12/20/19 15:59 IMPRESSION: NO ACUTE RADIOGRAPHIC FINDING IN THE CHEST. Head CT 12/20/19 15:59 IMPRESSION: CHRONIC CHANGES OF ATROPHY AND MICROVASCULAR ISCHEMIA. NO ACUTE PROCESS. EVIDENCE OF ACUTE STROKE: NO. Head CTA 12/20/19 16:37 IMPRESSION: NO CTA EVIDENCE OF STENOSIS OR ANEURYSM OF THE [place]. Neck CTA 12/20/19 16:37 IMPRESSION: NORMAL CTA OF THE EXTRA-CRANIAL CAROTID AND VERTEBRAL ARTERIES. Venous Doppler Study 12/20/19 21:08 IMPRESSION: Findings positive for acute right lower extremity DVT. 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 copyright 2011 [employer]- All Rights Reserved Head MRI 12/21/19 00:00 IMPRESSION: Acute to subacute ischemia in the left parietal lobe, left MCA distribution. No intracranial hemorrhage or significant mass effect. EVIDENCE OF ACUTE STROKE: YES. LEFT MCA Plan Time Spent: Greater than 30 Minutes Stroke Is this a Stroke Patient?: Yes Stroke Pt being discharged on Anti-thrombolytic therapy?: Yes Stroke Pt being discharged on Anti-coagulation therapy?: Yes Stroke Pt being discharged on Statins?: Yes Acute Heart Failure Is this a Heart Failure Patient?: No
[2019-12-25 14:16] VITALS: BP 102/50
== END 2019-12-25 18:30 | disposition home health service (06) | DRG 65 ==
LOC: ER 15:46 → EH 21:56 → 5 23:50 → 5TH 12-25 13:09
PROVIDERS: ADMIT Internal Medicine; ATTEND Internal Medicine
PROC: HZ2ZZZZ Detoxification Services for Substance Abuse Treatment (ICD-10-PCS; principal; 2019-12-20)
PROC: B24BZZ4 Ultrasonography of Heart with Aorta, Transesophageal (ICD-10-PCS; 2019-12-23)
PROC: 3E02340 Introduction of Influenza Vaccine into Muscle, Percutaneous Approach (ICD-10-PCS; 2019-12-25)
DX: I63.512 Cerebral infarction due to unspecified occlusion or stenosis of left middle cerebral artery (principal); F10.239 Alcohol dependence with withdrawal, unspecified; I82.431 Acute embolism and thrombosis of right popliteal vein; G81.91 Hemiplegia, unspecified affecting right dominant side; Z20.828 Contact with and (suspected) exposure to other viral communicable diseases; Y90.0 Blood alcohol level of less than 20 mg/100 ml; R29.6 Repeated falls; S91.209A Unspecified open wound of unspecified toe(s) with damage to nail, initial encounter; R47.01 Aphasia; I10 Essential (primary) hypertension; R29.810 Facial weakness; R29.705 NIHSS score 5; Z23 Encounter for immunization; Z85.3 Personal history of malignant neoplasm of breast; Z86.711 Personal history of pulmonary embolism; Z79.899 Other long term (current) drug therapy; Z88.0 Allergy status to penicillin; Z91.19 Patient's noncompliance with other medical treatment and regimen
CPT/HCPCS: 36415; 70450; 70496; 70498; 70551; 71045; 80048; 80053; 80061; 80307; 81001; 82550; 82553; 82962; 83735; 84100; 84484; 85025; 85027; 85610; 85730; 87635; 90471; 90686; 93005; 93010; 93306; 93970; 99285; C9803; G0008; J1650; J2060; J7040; J7120

== ENCOUNTER 2020-01-03 13:28 | Emergency (ER) | payer MEDICARE ==
--- NOTE | 2020-01-03 13:40 | ER Document Report ---
ED General - General Stated Complaint: HEADACHE X30 MINUTES Time Seen by Provider: 01/03/20 13:37 Primary Care Provider: JOSEF ALVAREZ MD [COMMUNITY BASED STAFF] - Follow up as needed APOLINAR NOLAN MD [ACTIVE STAFF] - Follow up as needed Mode of Arrival: Medic Information source: Emergency Med Personnel Notes: 79-year-old female patient presented to the emergency department with complaints of headache. Patient apparently had a headache that started 30 minutes prior to arrival. She was recently seen and discharged from this hospital for a stroke. TRAVEL OUTSIDE OF THE [place] IN LAST 30 DAYS: No - Related Data Allergies/Adverse Reactions: Penicillins Allergy (Verified 02/26/19 14:20) Rash Past Medical History - General Information source: Patient - Social History Smoking Status: Never Smoker Frequency of alcohol use: Heavy - recently quit Lives with: Family Family History: Reviewed & Not Pertinent - Past Medical History Cardiac Medical History: Reports: Hx Pulmonary Embolism Pulmonary Medical History: Denies: Hx Tuberculosis Neurological Medical History: Reports: Hx Cerebrovascular Accident Malignancy Medical History: Reports: Hx Breast Cancer Psychiatric Medical History: Reports: Hx Depression Past Surgical History: Reports: Other - Lumpectomy left breast - Immunizations Hx Diphtheria, Pertussis, Tetanus Vaccination: Yes - 2009 Hx Pneumococcal Vaccination: 02/06/09 Review of Systems - Review of Systems Neurological/Psychological: Headaches -: Yes All other systems reviewed and negative Physical Exam - Vital signs Vitals: Pulse Resp BP Pulse Ox 70 16 101/60 99 01/03/20 13:28 01/03/20 13:28 01/03/20 13:28 01/03/20 13:28 - Notes Notes: PHYSICAL EXAMINATION: GENERAL: Well-appearing, well-nourished and in no acute distress. HEAD: Atraumatic, normocephalic. EYES: Pupils equal round and reactive to light, extraocular movements intact, conjunctiva are normal. ENT: Nares patent, oropharynx clear without exudates. Moist mucous membranes. NECK: Normal range of motion, supple without lymphadenopathy LUNGS: Breath sounds clear to auscultation bilaterally and equal. No wheezes rales or rhonchi. HEART: Regular rate and rhythm without murmurs ABDOMEN: Soft, nontender, nondistended abdomen. No guarding, no rebound. No masses appreciated. Female : deferred Musculoskeletal: Normal range of motion, no pitting or edema. No cyanosis. NEUROLOGICAL: Cranial nerves grossly intact. Expressive aphasia. Normal sensory exams, slight weakness on right upper extremity. PSYCH: Normal mood, normal affect. SKIN: Warm, Dry, normal turgor, no rashes or lesions noted. Course - Re-evaluation Re-evalutation: Patient appears well, nontoxic. She is not having an acute stroke today. She does still have right-sided residual weakness from previous stroke. She also has expressive aphasia from previous stroke. Patient coming in today with complaints of a headache. Her daughter states her weakness and expressive aphasia is actually improving over the last week and a half since she was discharged from the hospital. Patient's headache has been significantly improved with administration of medications here in the emergency department. EKG was reviewed by me shows a sinus rhythm, rate of 71, normal axis, no obvious ST segment elevations or depressions to suggest ischemia. No change from previous EKG on file from 12/20/2019. - Vital Signs Vital signs: Temp Pulse Resp BP Pulse Ox 98.9 F 66 16 99/66 L 99 01/03/20 13:46 01/03/20 13:46 01/03/20 13:46 01/03/20 13:46 01/03/20 13:46 - Laboratory Result Diagrams: 01/03/20 13:37 01/03/20 13:37 Laboratory results interpreted by me: 01/03/20 01/03/20 13:37 13:37 Hgb 11.3 L Hct 34.6 L RDW 15.3 H Plt Count 487 H Potassium 5.1 H Chloride 108 H Anion Gap 3 L Creatinine 1.35 H Est GFR ( Amer) 46 L Est GFR (MDRD) Non-Af 38 L Creatine Kinase < 20 L Albumin 3.3 L Discharge - Discharge Clinical Impression: Headache Qualifiers: Headache type: unspecified Headache chronicity pattern: unspecified pattern Intractability: not intractable Qualified Code(s): R51.9 - Headache, unspecified Condition: Stable Disposition: HOME, SELF-CARE Additional Instructions: Your work-up today was reassuring. There was no new stroke noted on the CT. Please follow-up with primary care as soon as you are able to do so. If you are unable to get into see her primary care we are happy to evaluate you here in the emergency department for any new or acute needs. Referrals: APOLINAR NOLAN MD [ACTIVE STAFF] - Follow up as needed JOSEF ALVAREZ MD [COMMUNITY BASED STAFF] - Follow up as needed
[2020-01-03 13:56] LABS: PARTIAL THROMBOPLASTIN TIME 32.1 SEC (23.5-35.8)
[2020-01-03 13:57] LABS: ABSOLUTE BASOPHILS # (AUTO) 0.1 10^3/uL (0.0-0.2); ABSOLUTE EOSINOPHILS # (AUTO) 0.2 10^3/uL (0.0-0.6); ABSOLUTE LYMPHOCYTES (AUTO) 1.8 10^3/uL (0.5-4.7); ABSOLUTE MONOCYTES (AUTO) 0.5 10^3/uL (0.1-1.4); ABSOLUTE NEUT (AUTO) 2.7 10^3/uL (1.7-8.2); BASOPHILS % (AUTO) 1.3 % (0-2); EOSINOPHILS % (AUTO) 3.1 % (0-6); HEMATOCRIT 34.6 % (36.0-47.0); HEMOGLOBIN 11.3 g/dL (12.0-15.5); LYMPHOCYTES % (AUTO) 34.1 % (13-45); MEAN CORPUSCULAR HGB CONC 32.5 g/dL (32.0-36.0); MEAN CORPUSCULAR VOLUME 92 fl (80-97); MONOCYTES % (AUTO) 9.7 % (3-13); PLATELET COUNT 487 10^3/uL (150-450); RED BLOOD COUNT 3.76 10^6/uL (3.72-5.28); RED CELL DISTRIBUTION WIDTH 15.3 % (11.5-14.0); SEGMENTED NEUTROPHILS % (AUTO) 51.8 % (42-78); TOTAL CELLS COUNTED % (AUTO) 100 %; WHITE BLOOD COUNT 5.2 10^3/uL (4.0-10.5)
[2020-01-03 13:58] LABS: INTERNATIONAL RATION (INR) 1.16
--- NOTE | 2020-01-03 14:08 | RADIOLOGY REPORT (SQ) ---
EXAM DESCRIPTION: CT HEAD WITHOUT IMAGES COMPLETED DATE/TIME: 01/03/2020 1:47 pm REASON FOR STUDY: stroke alert COMPARISON: 12/21/2019 TECHNIQUE: Axial images acquired through the brain without intravenous contrast. Images reviewed wi th bone, brain and subdural windows. Additional sagittal and coronal reconstructions were generated. Images stored on PACS. All CT scanners at this facility use dose modulation, iterative reconstruction, and/or weight based d osing when appropriate to reduce radiation dose to as low as reasonably achievable (ALARA). [facility]: Dose Right [facility]: CareDose [facility]: Dose Right [facility]: Teradose 4D [facility]: Smart [employer] RADIATION DOSE: CT Rad equipment meets quality standard of care and radiation dose reduction techniq ues were employed. CTDIvol: 53.2 mGy. DLP: 964 mGy-cm.mGy. LIMITATIONS: None. FINDINGS: VENTRICLES: Prominent. CEREBRUM: No mass or intracranial hemorrhage. Evolution of previously-seen left parietal lobe and in sula infarct with area of hypoattenuation. No significant mass effect or midline shift. No evidence of new large vascular territory infarct. Remaining naranjo-white differentiation is preserved. CEREBELLUM: No masses. No hemorrhage. No alteration of density. No evidence for acute infarction. EXTRAAXIAL SPACES: Age-related involutional change. No fluid collections. No masses. ORBITS AND GLOBE: No intra- or extraconal masses. Normal contour of globe without masses. CALVARIUM: No fracture. PARANASAL SINUSES: No fluid or mucosal thickening. SOFT TISSUES: No mass or hematoma. OTHER: No other significant finding. IMPRESSION: 1. No evidence of intracranial hemorrhage or new large vascular territory infarct. 2. Evolution of previously-seen the left parietal lobe and insula infarct as seen on MR dated 2019. No significant mass effect. EVIDENCE OF ACUTE STROKE: Evolving previously-seen left MCA territory infarct. No new infarct identi fied. COMMENT: Pertinent positive or negative findings of the imaging study reported as a CRITICAL EXAM noel WARD NP at14:02 on 01/03/2020. Category of Critical Exam: Code stroke TECHNICAL DOCUMENTATION: JOB ID: [id number] Quality ID # [id number]: Final reports with documentation of one or more dose reduction techniques (e.g., Au tomated exposure control, adjustment of the mA and/or kV according to patient size, use of iterative reconstruction technique) 2010 [employer]- All Rights Reserved Reading location - IP/workstation name: [email or web address]
--- NOTE | 2020-01-03 14:14 | RADIOLOGY REPORT (SQ) ---
EXAM DESCRIPTION: CHEST SINGLE VIEW IMAGES COMPLETED DATE/TIME: 01/03/2020 12:49 pm REASON FOR STUDY: stroke alert. COMPARISON: 12/20/2019 EXAM PARAMETERS: NUMBER OF VIEWS: One view. TECHNIQUE: Single frontal radiographic view of the chest acquired. RADIATION DOSE: NA LIMITATIONS: None. FINDINGS: LUNGS AND PLEURA: No opacities, masses or pneumothorax. No pleural effusion. MEDIASTINUM AND HILAR STRUCTURES: No masses. Contour normal. HEART AND VASCULAR STRUCTURES: Heart normal in size. Normal vasculature. BONES: No acute findings. HARDWARE: Surgical clips in the left chest wall are unchanged. OTHER: No other significant finding. IMPRESSION: NO ACUTE RADIOGRAPHIC FINDING IN THE CHEST. TECHNICAL DOCUMENTATION: JOB ID: [id number] 2010 [employer]- All Rights Reserved Reading location - IP/workstation name: [email or web address]
[2020-01-03 14:22] LABS: ALBUMIN 3.3 g/dL (3.5-5.0); ALKALINE PHOSPHATASE 57 U/L (38-126); ASPARTATE AMINO TRANSFERASE 21 U/L (14-36); BILIRUBIN,DIRECT 0.1 mg/dL (0.0-0.4); BILIRUBIN,TOTAL 0.2 mg/dL (0.2-1.3); BLOOD UREA NITROGEN 19 mg/dL (7-20); CALCIUM 9.8 mg/dL (8.4-10.2); GLUCOSE 82 mg/dL (75-110); POTASSIUM 5.1 mmol/L (3.6-5.0); TOTAL PROTEIN 6.3 g/dL (6.3-8.2)
[2020-01-03 14:27] LABS: CARBON DIOXIDE 28 mmol/L (22-30); CHLORIDE 108 mmol/L (98-107)
[2020-01-03 14:30] LABS: ALCOHOL < 10 mg/dL (NONE DETECTED); ANION GAP 3 (5-19); CREATINE KINASE < 20 U/L (30-135)
[2020-01-03 14:46] VITALS: BP 101/60
[2020-01-03 14:52] LABS: CREATINE KINASE MB < 0.22 ng/mL (<4.55); TROPONIN I < 0.012 ng/mL
[2020-01-03] MEDS ORDERED: ACETAMINOPHEN 1,000 MG/100 ML RTUPB IV ONE (15:47)
[2020-01-03] MEDS ORDERED: KETOROLAC TROMETHAMINE INJ/PF 30 MG/1 ML SDV IV ONE (17:43)
[2020-01-03] MEDS ORDERED: DIPHENHYDRAMINE HCL 50 MG/ML VIAL IV ONE (17:43)
--- NOTE | 2020-01-03 19:08 | EKG REPORT ---
SEVERITY:- NORMAL ECG - SINUS RHYTHM : Confirmed by: Mukund Helms MD 03-Jan-2020 19:07:45
== END 2020-01-03 19:20 | disposition home or self-care (01) ==
LOC: ER 13:28
DX: R51.9 Headache, unspecified (principal); I69.320 Aphasia following cerebral infarction; I69.351 Hemiplegia and hemiparesis following cerebral infarction affecting right dominant side; Z85.3 Personal history of malignant neoplasm of breast; Z88.0 Allergy status to penicillin; Z20.828 Contact with and (suspected) exposure to other viral communicable diseases
CPT/HCPCS: 93005; 99285; 96375; 96365; 36415; 82553; 80307; 82550; 85025; 85610; 85730; 80053; 84484; 71045; 70450; 93010; U0003; J1200; J1885; J0131; C9803; 87635

== ENCOUNTER 2020-01-14 17:02 | Inpatient (IN) | payer MEDICARE ==
[2020-01-14 17:43] LABS: ABSOLUTE EOSINOPHILS # (AUTO) 0.6 10^3/uL (0.0-0.6); ABSOLUTE MONOCYTES (AUTO) 0.3 10^3/uL (0.1-1.4); ABSOLUTE NEUT (AUTO) 2.9 10^3/uL (1.7-8.2); BASOPHILS % (AUTO) 0.7 % (0-2); EOSINOPHILS % (AUTO) 13.5 % (0-6); HEMOGLOBIN 11.8 g/dL (12.0-15.5); LYMPHOCYTES % (AUTO) 20.1 % (13-45); MEAN CORPUSCULAR HEMOGLOBIN 29.8 pg (27.0-33.4); MEAN CORPUSCULAR HGB CONC 32.7 g/dL (32.0-36.0); MEAN CORPUSCULAR VOLUME 91 fl (80-97); MONOCYTES % (AUTO) 5.6 % (3-13); PLATELET COUNT 213 10^3/uL (150-450); RED BLOOD COUNT 3.95 10^6/uL (3.72-5.28); RED CELL DISTRIBUTION WIDTH 15.1 % (11.5-14.0); SEGMENTED NEUTROPHILS % (AUTO) 60.1 % (42-78); TOTAL CELLS COUNTED % (AUTO) 100 %; WHITE BLOOD COUNT 4.8 10^3/uL (4.0-10.5)
[2020-01-14 17:51] LABS: PARTIAL THROMBOPLASTIN TIME 36.8 SEC (23.5-35.8)
[2020-01-14 17:54] LABS: INTERNATIONAL RATION (INR) 1.26
--- NOTE | 2020-01-14 17:58 | EKG REPORT ---
SEVERITY:- NORMAL ECG - SINUS RHYTHM : Confirmed by: Deann Zayas 14-Jan-2020 17:57:28
[2020-01-14 18:05] LABS: ALBUMIN 3.6 g/dL (3.5-5.0); ALKALINE PHOSPHATASE 712 U/L (38-126); ANION GAP 7 (5-19); ASPARTATE AMINO TRANSFERASE 436 U/L (14-36); BILIRUBIN,DIRECT 0.8 mg/dL (0.0-0.4); BILIRUBIN,TOTAL 1.2 mg/dL (0.2-1.3); BLOOD UREA NITROGEN 18 mg/dL (7-20); CALCIUM 9.2 mg/dL (8.4-10.2); CARBON DIOXIDE 26 mmol/L (22-30); CHLORIDE 105 mmol/L (98-107); GLUCOSE 91 mg/dL (75-110); POTASSIUM 4.3 mmol/L (3.6-5.0); TOTAL PROTEIN 7.3 g/dL (6.3-8.2)
--- NOTE | 2020-01-14 18:05 | RADIOLOGY REPORT (SQ) ---
EXAM DESCRIPTION: CT HEAD WITHOUT IMAGES COMPLETED DATE/TIME: 01/14/2020 5:13 pm REASON FOR STUDY: stroke-like symptoms COMPARISON: 01/03/2020 TECHNIQUE: Axial images acquired through the brain without intravenous contrast. Images reviewed wi th bone, brain and subdural windows. Additional sagittal and coronal reconstructions were generated. Images stored on PACS. All CT scanners at this facility use dose modulation, iterative reconstruction, and/or weight based d osing when appropriate to reduce radiation dose to as low as reasonably achievable (ALARA). [facility]: Dose Right [facility]: CareDose [facility]: Dose Right [facility]: Teradose 4D [facility]: [employer] RADIATION DOSE: CT Rad equipment meets quality standard of care and radiation dose reduction techniq ues were employed. CTDIvol: 53.2 mGy. DLP: 937 mGy-cm. mGy. LIMITATIONS: None. FINDINGS: VENTRICLES: Prominent ventricles secondary to involutional atrophy. CEREBRUM: No masses. No hemorrhage. No midline shift. There is a somewhat ill-defined area of decr eased attenuation in the left posterior frontal/parietal region with some loss of naranjo/ white differe ntiation. CEREBELLUM: No masses. No hemorrhage. No alteration of density. No evidence for acute infarction. EXTRAAXIAL SPACES: No fluid collections. No masses. ORBITS AND GLOBE: No intra- or extraconal masses. Normal contour of globe without masses. CALVARIUM: No fracture. PARANASAL SINUSES: No fluid or mucosal thickening. SOFT TISSUES: No mass or hematoma. OTHER: No other significant finding. IMPRESSION: Involutional changes. There findings in the left posterior frontal/ parietal region sug gestive of an acute/subacute infarction. EVIDENCE OF ACUTE STROKE: YES. LEFT MCA. COMMENT: Pertinent positive or negative findings of the imaging study reported as a CRITICAL EXAM t o DR. MATA At17:58 on 01/14/2020. Category of Critical Exam: Stroke alert. Quality ID # [id number]: Final reports with documentation of one or more dose reduction techniques (e.g., Au tomated exposure control, adjustment of the mA and/or kV according to patient size, use of iterative reconstruction technique) TECHNICAL DOCUMENTATION: JOB ID: [id number] 2010 [employer]- All Rights Reserved Reading location - IP/workstation name: [email or web address]
[2020-01-14 18:06] LABS: CREATINE KINASE < 20 U/L (30-135)
[2020-01-14] MEDS ORDERED: ACETAMINOPHEN 325 MG TABLET PO ONE (18:09)
--- NOTE | 2020-01-14 18:17 | ER Document Report ---
ED General - General Stated Complaint: POSSIBLE STROKE Time Seen by Provider: 01/14/20 17:12 TRAVEL OUTSIDE OF THE [place] IN LAST 30 DAYS: No - HPI Notes: Patient is an 79-year-old female presents emergency department for evaluation. History is obtained from nursing, EMS, unable to obtain any meaningful history from the patient. The patient does have a history of a stroke with residual right-sided weakness and some expressive aphasia. Evidently it got worse sometime around 1530 today. What I do know from nursing via EMS report is that she became diaphoretic and EMS was called. Patient does have a known history of recent DVTs bilaterally and is on Eliquis. The patient complains of pain in her right leg, asks for Tylenol when offered. She denies any other pain at this time. - Related Data Allergies/Adverse Reactions: Penicillins Allergy (Verified 02/26/19 14:20) Rash Home Medications: List reviewed, please see nursing notes Past Medical History - General Information source: Patient, Emergency Med Personnel, [facility] Records - Social History Smoking Status: Never Smoker Frequency of alcohol use: Former alcohol dependence Drug Abuse: None Family History: Reviewed & Not Pertinent - Past Medical History Cardiac Medical History: Reports: Hx DVT, Hx Pulmonary Embolism Pulmonary Medical History: Denies: Hx Tuberculosis Neurological Medical History: Reports: Hx Cerebrovascular Accident Malignancy Medical History: Reports: Hx Breast Cancer Psychiatric Medical History: Reports: Hx Depression Past Surgical History: Reports: Other - Lumpectomy left breast - Immunizations Hx Diphtheria, Pertussis, Tetanus Vaccination: Yes - 2009 Hx Pneumococcal Vaccination: 02/06/09 Review of Systems - Review of Systems -: Yes ROS unobtainable due to patient's medical condition Physical Exam - Vital signs Vitals: Resp Pulse Ox 13 92 01/14/20 17:24 01/14/20 17:24 - Notes Notes: This is an 79-year-old female who appears her stated age. She appears very anx ious, intermittently tachypneic. Vital signs reviewed, please refer to chart. Head is normocephalic, atraumatic. Pupils equal round, reactive to light. Neck is supple without meningismus. Heart is regular rate and rhythm. Lungs are clear to auscultation bilaterally. Abdomen is soft, nontender, normoactive bowel sounds throughout. Extremities without cyanosis, clubbing. Peripheral pulses are equal. Skin is warm and dry. Patient is awake and alert with a significant expressive aphasia. Patient has some mild asymmetry noted at the nasolabial fold with some weakness on the left. Equal strength with eye closing. No pronator drift. Plus 4 out of 5 strength in the right upper extremity. She is able to hold both legs up against gravity. She is mildly hyperreflexive on the right. Otherwise, I am not able to perform a more detailed neurological exam secondary to the patient's expressive aphasia and level of confusion. Course - Re-evaluation Re-evalutation: 01/14/20 18:24 Patient presents to the emergency department for evaluation. Initially evidently she did have some increased right-sided weakness and worsened expressive aphasia, as well as facial droop. This seems to be improving, although I am not sure exactly as to the level of this improvement. What I do know, however, is that the patient did have an ischemic stroke in the beginning of December, which puts her outside of the window for TPA for this acute CVA, as this was less than 6 weeks ago. Serial neurological exams will be performed, continued stroke protocol will be followed. I also did order a urinalysis via straight catheterization, and alcohol level, and Tylenol to be administered for her leg pain. Given her intermittent tachypnea, I do have to worry about a possible PE. Will order a CT angiogram of her chest. My hope is that this will also evaluate her upper abdomen, as she does have elevated LFTs. She is currently stable, we will continue to monitor. 01/14/20 21:[address] Kowalski, nighttime hospitalist. We discussed admission. He verified that the patient can have an IVC filter placed here in this hospital. This is possible. He will accept the patient for further care. - Vital Signs Vital signs: Temp Pulse Resp BP Pulse Ox 98.1 F 75 20 103/69 98 01/14/20 23:30 01/14/20 17:44 01/14/20 23:30 01/14/20 23:30 01/14/20 23:30 - Laboratory Results Result Diagrams: 01/14/20 17:30 01/14/20 17:30 Laboratory Results Interpreted: 01/14/20 01/14/20 01/14/20 17:30 17:30 17:30 Hgb 11.8 L RDW 15.1 H Eos % (Auto) 13.5 H PT 16.0 H APTT 36.8 H Est GFR ( Amer) 59 L Est GFR (MDRD) Non-Af 49 L Direct Bilirubin 0.8 H AST 436 H ALT 343 H Alkaline Phosphatase 712 H Creatine Kinase < 20 L Urine Protein Urine Nitrite Urine Urobilinogen Ur Leukocyte Esterase 01/14/20 19:20 Hgb RDW Eos % (Auto) PT APTT Est GFR ( Amer) Est GFR (MDRD) Non-Af Direct Bilirubin AST ALT Alkaline Phosphatase Creatine Kinase Urine Protein 30 H Urine Nitrite POSITIVE H Urine Urobilinogen 2.0 H Ur Leukocyte Esterase LARGE H Critical Laboratory Results Reviewed: No Critical Results - Radiology Results Critical Radiology Results Reviewed: Yes Attending or Supervising Physician who Reviewed Radiology: CODY MATA - Acute to subacute frontoparietal CVA - EKG Interpretation by Me Additional EKG results interpreted by me: 01/14/20 18:26 Sinus mechanism with a rate of 62 bpm. Normal axis and intervals. No acute ST changes concerning for ischemia or infarction. No change from prior study. Critical Care Note - Critical Care Note Total time excluding time spent on procedures (mins): 40 Discharge - Discharge Clinical Impression: Pulmonary embolus Qualifiers: Chronicity: unspecified Acute cor pulmonale presence: without acute cor pulmonale CVA (cerebral vascular accident) Qualifiers: CVA mechanism: occlusion Laterality of affected vessel: left UTI (urinary tract infection) Qualifiers: Urinary tract infection type: site unspecified Hematuria presence: without hematuria Qualified Code(s): N39.0 - Urinary tract infection, site not specified Condition: Stable Disposition: ADMITTED INPATIENT Admitting Provider: [facility] Admitted: [facility]
--- NOTE | 2020-01-14 18:29 | RADIOLOGY REPORT (SQ) ---
EXAM DESCRIPTION: CHEST SINGLE VIEW IMAGES COMPLETED DATE/TIME: 01/14/2020 5:09 pm REASON FOR STUDY: stroke-like symptoms COMPARISON: 01/03/2020 EXAM PARAMETERS: NUMBER OF VIEWS: One view. TECHNIQUE: Single frontal radiographic view of the chest acquired. RADIATION DOSE: NA LIMITATIONS: None. FINDINGS: LUNGS AND PLEURA: Slight linear opacity in the right lower lung zone may represent atelect asis. The left lung remains clear. No pneumothorax or pleural effusion. A few small calcific densi ties in the right apex of the lung maybe related prior old inflammatory or infectious changes. MEDIASTINUM AND HILAR STRUCTURES: No masses. Contour normal. HEART AND VASCULAR STRUCTURES: Heart normal in size. Normal vasculature. BONES: Stable old left 7th rib fracture. HARDWARE: None in the chest. OTHER: Large stable hiatal hernia. IMPRESSION: 1. Focal slight linear subsegmental passed in the right lower lung zone may represent a telectasis. No acute pulmonary consolidation. TECHNICAL DOCUMENTATION: JOB ID: [id number] 2010 [employer]- All Rights Reserved Reading location - IP/workstation name: [email or web address]
[2020-01-14 18:31] LABS: CREATINE KINASE MB 0.29 ng/mL (<4.55)
[2020-01-14 18:32] LABS: TROPONIN I < 0.012 ng/mL
[2020-01-14 19:49] LABS: APPEARANCE,URINE CLOUDY; BILIRUBIN,URINE NEGATIVE (NEGATIVE); COLOR,URINE YELLOW; GLUCOSE, URINE NEGATIVE (NEGATIVE); KETONES,URINE NEGATIVE (NEGATIVE); LEUKOCYTE ESTERASE,URINE LARGE (NEGATIVE); NITRITE,URINE POSITIVE (NEGATIVE); PROTEIN,URINE 30 mg/dL (NEGATIVE); URINE SPECIFIC GRAVITY 1.009
--- NOTE | 2020-01-14 20:03 | RADIOLOGY REPORT (SQ) ---
EXAM DESCRIPTION: CTA CHEST IMAGES COMPLETED DATE/TIME: 01/14/2020 7:41 pm REASON FOR STUDY: eval for PE COMPARISON: None. TECHNIQUE: CT scan of the chest performed using helical scanning technique with dynamic intravenous contrast injection. Images reviewed with lung, soft tissue and bone windows. Reconstructed coronal and sagittal MPR images reviewed. Additional 3 dimensional post-processing performed to develop Maximal Intensity Projection images ([place] P). All images stored on PACS. All CT scanners at this facility use dose modulation, iterative reconstruction, and/or weight based d osing when appropriate to reduce radiation dose to as low as reasonably achievable (ALARA). [facility]: Dose Right [facility]: CareDose [facility]: Dose Right [facility]: Teradose 4D [facility]: [employer] CONTRAST TYPE AND DOSE: contrast/concentration: Isovue 350.00 mmol/ml; Total Contrast Delivered: 47. 0 ml; Total Saline Delivered: 55.3 ml Contrast bolus adequate for pulmonary arteries and aorta. RENAL FUNCTION: BUN 18 creatinine 1.08 RADIATION DOSE: CT Rad equipment meets quality standard of care and radiation dose reduction techniq ues were employed. CTDIvol: 6.6 - 14.3 mGy. DLP: 525 mGy-cm. . LIMITATIONS: None. FINDINGS: LUNGS AND PLEURA: There is limited opacification in the lateral aspect of the right upper lobe adjacent to the minor fissure. No other significant findings in the lungs. AORTA AND GREAT VESSELS: No aneurysm. No dissection. HEART: No pericardial effusion. No significant coronary artery calcifications. PULMONARY ARTERIES: There is limited thrombus in the right upper lobe pulmonary artery. HILAR AND MEDIASTINAL STRUCTURES: Moderate hiatal hernia. Few nonspecific mediastinal nodes. HARDWARE: None in the chest. UPPER ABDOMEN: No significant findings. Limited exam. THYROID AND OTHER SOFT TISSUES: No masses. No adenopathy. BONES: No acute or significant finding. 3D MIPS: Confirm above findings. OTHER: No other significant finding. IMPRESSION: 1. Limited embolism in the right upper lobe pulmonary artery. 2. Limited opacification in the lateral aspect of the right upper lobe, atelectasis versus pneumonia . 3. Moderate hiatal hernia. COMMENT: Quality ID # [id number]: Final reports with documentation of one or more dose reduction techniques (e.g., Automated exposure control, adjustment of the mA and/or kV according to patient size, use of iterative reconstruction technique) TECHNICAL DOCUMENTATION: JOB ID: [id number] 2010 [employer]- All Rights Reserved Reading location - IP/workstation name: [email or web address]
[2020-01-14] MEDS ORDERED: LEVOFLOXACIN 500 MG/D5W RTU 500 MG/100 ML RTUPB IV ONE (20:44)
[2020-01-14] MEDS ORDERED: GLUCAGON,HUMAN RECOMB 1 MG INJ SUBCUT PRN (23:19)
[2020-01-14] MEDS ORDERED: DEXTROSE 50%-WATER 25 GM/50 ML DISP.SYRIN IV PRN ×2 (23:19)
[2020-01-14] MEDS ORDERED: DEXTROSE 40% GEL 15 GM TUBE PO PRN ×2 (23:19)
[2020-01-14] MEDS ORDERED: POTASSI CL 20 MEQ/NS 1L 1,000 ML IV PRN (23:19)
[2020-01-15] MEDS ORDERED: ATORVASTATIN CALCIUM 40 MG TABLET PO ONE (00:15)
[2020-01-15] MEDS ORDERED: ENOXAPARIN SODIUM INJ 60 MG/0.6 ML DISP.SYRIN SUBCUT ONE (00:15)
--- NOTE | 2020-01-15 06:45 | PDOC H&P ---
History of Present Illness Admission Date/PCP: 01/14/20 21:58 Patient complains of: Worsening speech difficulty History of Present Illness: EYAL REED is a 79 year old female The patient was recently admitted to the hospital between December 19 through December 24 with a left MCA infarct. She had right-sided hemiparesis and expressive and receptive aphasia. She went home with her daughter. She still does not have a primary care physician. She recently moved here. She was taking her medications as they were prescribed. During previous hospitalization she was diagnosed with bilateral lower extremity deep venous thrombosis, acute on the right leg chronic on the left leg. She has history of recurrent venous thromboembolic disease. She was doing reasonably well and slowly improving till today. Prior to coming to the hospital her daughter noticed that speech became very garbled again she became very weak. In the emergency department it was wells spected that she probably suffered a new stroke. She was not a candidate for thrombolytic treatment because of the time window and because of the recent ischemic stroke. She had a CT pulmonary angiogram and she was found to have a pulmonary emboli as well. She remained hemodynamically stable. She maintains good oxygen saturation. When I saw her it was obvious that she has expressive aphasia/dysarthria. She did not appear to be in distress. Past Medical History Cardiac Medical History: Reports: DVT, Hyperlipidema, Pulmonary Embolism Pulmonary Medical History: Denies: Asthma, Tuberculosis Endocrine Medical History: Reports: None Malignancy Medical History: Reports: Breast Cancer - Lateral breast cancer, bilateral lumpectomy, chemo and radiation therapy. Psychiatric Medical History: Reports: Depression Infectious Medical History: Reports: None Past Surgical History Past Surgical History: Reports: Other - Lumpectomy left breast, lumpectomy of the right breast. Social History Smoking Status: Never Smoker Frequency of Alcohol Use: Heavy Hx Recreational Drug Use: No Drugs: None Hx Prescription Drug Abuse: No - Advance Directive Resuscitation Status: Do Not Resuscitate Family History Family History: Reviewed & Not Pertinent Parental Family History Reviewed: Yes - Longevity Children Family History Reviewed: Yes Sibling(s) Family History Reviewed.: Yes Medication/Allergy Home Medications: Apixaban [Eliquis 5 mg Tablet] 5 mg PO Q12 #60 tablet 12/25/19 Atorvastatin Calcium [Lipitor 40 mg Tablet] 40 mg PO QHS #30 tablet 12/25/19 Lisinopril [Prinivil 5 mg Tablet] 5 mg PO DAILY #30 tablet 12/25/19 Allergies/Adverse Reactions: Penicillins Allergy (Verified 02/26/19 14:20) Rash Review of Systems Constitutional: PRESENT: weakness Eyes: ABSENT: visual disturbances Cardiovascular: ABSENT: chest pain Gastrointestinal: ABSENT: abdominal pain, diarrhea, nausea, vomiting Genitourinary: ABSENT: dysuria Musculoskeletal: ABSENT: deformity Integumentary: ABSENT: rash Neurological: PRESENT: abnormal gait - Slowly but without any help or device., abnormal speech, frequent falls - She has history of falling but not recently., weakness - Right-sided weakness significantly improved. Hematologic/Lymphatic: ABSENT: easy bleeding, easy bruising Physical Exam Vital Signs: Temp Pulse Resp BP Pulse Ox 98.2 F 107 H 24 H 154/70 H 100 01/15/20 03:15 01/15/20 03:15 01/15/20 03:15 01/15/20 03:15 01/15/20 03:15 Intake & Output 01/13/20 01/14/20 01/15/20 06:59 06:59 06:59 Intake Total 100 Balance 100 Weight 48 kg General appearance: PRESENT: no acute distress, thin Head exam: PRESENT: atraumatic Eye exam: PRESENT: EOMI, PERRLA. ABSENT: conjunctival injection Ear exam: PRESENT: normal external ear exam Mouth exam: PRESENT: moist Neck exam: PRESENT: full ROM. ABSENT: carotid bruit Respiratory exam: PRESENT: other - Lungs are clear to auscultation Cardiovascular exam: PRESENT: other - Regular rate and rhythm no murmur or gallop Pulses: PRESENT: normal carotid pulses, normal femoral pulses, normal dorsalis pedis pul GI/Abdominal exam: PRESENT: other - Abdomen soft nontender, no organomegaly or mass. Rectal exam: PRESENT: deferred Extremities exam: PRESENT: other - No swelling, no tenderness Musculoskeletal exam: PRESENT: ambulatory Neurological exam: PRESENT: alert, oriented to person, oriented to situation, other - Has some expressive aphasia/dysarthria. Seems to be she understands everything. Psychiatric exam: PRESENT: normal mood Skin exam: ABSENT: petechiae Results Laboratory Results: 01/14/20 17:30 01/14/20 17:30 01/14/20 01/14/20 01/14/20 17:30 17:30 19:20 WBC 4.8 RBC 3.95 Hgb 11.8 L Hct 36.0 MCV 91 MCH 29.8 MCHC 32.7 RDW 15.1 H Plt Count 213 Seg Neutrophils % 60.1 Sodium 137.7 Potassium 4.3 Chloride 105 Carbon Dioxide 26 Anion Gap 7 BUN 18 Creatinine 1.08 Est GFR ( Amer) 59 L Glucose 91 Calcium 9.2 Total Bilirubin 1.2 AST 436 H Alkaline Phosphatase 712 H Total Protein 7.3 Albumin 3.6 Urine Color YELLOW Urine Appearance CLOUDY Urine pH 8.0 Ur Specific [place] 1.009 Urine Protein 30 H Urine Glucose (UA) NEGATIVE Urine Ketones NEGATIVE Urine Blood NEGATIVE Urine Nitrite POSITIVE H Ur Leukocyte Esterase LARGE H Urine WBC (Auto) >182 Urine RBC (Auto) 4 01/14/20 01/14/20 01/14/20 17:30 17:30 23:36 Creatine Kinase < 20 L CK-MB (CK-2) 0.29 Troponin I < 0.012 < 0.012 EKG Comments: Normal EKG Impressions: Chest X-Ray 01/14/20 17:05 IMPRESSION: 1. Focal slight linear subsegmental passed in the right lower lung zone may represent atelectasis. No acute pulmonary consolidation. Head CT 01/14/20 17:05 IMPRESSION: Involutional changes. There findings in the left posterior frontal/ parietal region suggestive of an acute/subacute infarction. EVIDENCE OF ACUTE STROKE: YES. LEFT MCA. Chest/Abdomen CTA 01/14/20 18:26 IMPRESSION: 1. Limited embolism in the right upper lobe pulmonary artery. 2. Limited opacification in the lateral aspect of the right upper lobe, atelectasis versus pneumonia. 3. Moderate hiatal hernia. Assessment and Plan - Diagnosis (1) CVA (cerebral vascular accident) Qualifiers: CVA mechanism: occlusion Precerebral and cerebral artery: middle cerebral artery Laterality of affected vessel: left Qualified Code(s): I63.512 - Ce rebral infarction due to unspecified occlusion or stenosis of left middle cerebral artery Is this a current diagnosis for this admission?: Yes Plan: She has worsening expressive aphasia/dysarthria. The right-sided weakness almost completely resolved. CT scan of the head showing infarct but it is hard to tell that the patient had a new ischemic infarct or not. She is not a candidate for thrombolytic treatment. She had normal CT angiogram of the head and neck a few weeks ago, no reason to repeat. She is going to have an echocardiogram. Repeat metabolic panel, LDL goal less than 70. May consider repeating MRI of the brain but I am not quite sure it is going to be helpful. The patient is anticoagulated with apixaban. Adding any antiplatelet agent to an anticoagulant would significantly increase the bleeding risk. At this point I do not feel it is warranted. I believe there bleeding risk would be higher than the potential benefit. After monitoring the patient decision can change. She is going to have speech, occupational, physical therapy. She is going to be discharged either home or to [facility] facility depending on her needs. (2) Pulmonary embolus Qualifiers: Pulmonary embolism type: other Chronicity: unspecified Acute cor pulmonale presence: without acute cor pulmonale Qualified Code(s): I26.99 - Other pulmonary embolism without acute cor pulmonale Is this a current diagnosis for this admission?: Yes Plan: She is anticoagulated with apixaban, she has history of recurrent PE and DVT. She was recently diagnosed with an acute right lower extremity DVT and chronic left lower extremity DVT. According to her and according to her daughter she did not miss any apixaban dose. Considering this I believe she would be a ca ndidate for an inferior vena cava filter placement. I discussed this with the radiologist on-call, interventional radiology is going to proceed with IVC filter placement today. I kept the patient n.p.o. for the procedure. She is going to be anticoagulated with Lovenox for now. (3) DVT (deep venous thrombosis) Qualifiers: DVT location: lower extremity Affected thrombotic vein of extremity: unspecified vein of extremity Laterality: bilateral Is this a current diagnosis for this admission?: Yes Plan: Physical examination of the lower extremities are unremarkable. She was recently diagnosed with bilateral lower extremity DVT, acute on the right chronic on the left. She just developed a pulmonary emboli. I believe it is reasonable to proceed with an inferior vena cava filter placement. Despite anticoagulation the patient suffered pulmonary emboli. She has history of recurrent venous thromboembolic disease. (4) UTI (urinary tract infection) Qualifiers: Urinary tract infection type: site unspecified Hematuria presence: without hematuria Qualified Code(s): N39.0 - Urinary tract infection, site not specified Is this a current diagnosis for this admission?: Yes Plan: Continue ceftriaxone. No history of multidrug-resistant organism. Urine and blood cultures are pending. (5) Abnormal LFTs Is this a current diagnosis for this admission?: Yes Plan: The patient has history of alcoholism but during previous hospitalization she did not have any liver function test abnormality. She was not drinking alcohol since last the hospital. She has significantly elevated transaminases and alkaline phosphatase. Unfortunately the possibility that apixaban is causing it, cannot be excluded. I discontinued apixaban. She is going to be anticoagulated with Lovenox now. Monitor liver function studies. In the next couple of days it can be decided what is the best way to chronically anticoagulate her. (6) Hypertension Is this a current diagnosis for this admission?: Yes Plan: She is on low-dose 5 mg lisinopril daily. Monitor blood pressure, adjust blood pressure medication as needed. (7) Anemia Qualifiers: Anemia type: unspecified type Qualified Code(s): D64.9 - Anemia, unspecified Is this a current diagnosis for this admission?: Yes Plan: _Hemoglobin. Anemia studies. Appropriate replacement therapy if needed. (8) Alcohol abuse Is this a current diagnosis for this admission?: Yes Plan: She has history of alcohol abuse. Since she was discharged from the hospital she was not drinking. She is going to be monitored for withdrawal symptoms anyway. - Plan Summary Summary: The patient was admitted with worsening expressive aphasia, dysarthria but no other new neurological deficit. Right-sided hemiparesis significantly improved since discharge. At this point it is unclear whether she suffered a new stroke or not. She definitely has a new pulmonary emboli, recently diagnosed bilateral lower extremity DVT acute and chronic. She developed abnormal liver function studies since last admission, possibly secondary to apixaban. She has an acute urinary tract infection but she is not septic. She is going to be anticoagulated now with Lovenox. Interventional radiology is consulted for inferior vena cava filter placement. Antibiotics for urinary tract infection. The patient does not appear to be in any distress, she maintains good oxygen saturation and she is hemodynamically stable. - Time Time Spent with patient: 35 or more minutes Medications reviewed and adjusted accordingly: Yes Anticipated Discharge Disposition: Home with Home Health Anticipated Discharge Timeframe: within 72 hours
[2020-01-15 06:53] LABS: ABSOLUTE RETICS # 0.013 10^6/uL (0.028-0.122); HEMATOCRIT 32.3 % (36.0-47.0); HEMOGLOBIN 10.7 g/dL (12.0-15.5); MEAN CORPUSCULAR HEMOGLOBIN 30.2 pg (27.0-33.4); MEAN CORPUSCULAR HGB CONC 33.2 g/dL (32.0-36.0); MEAN CORPUSCULAR VOLUME 91 fl (80-97); PLATELET COUNT 196 10^3/uL (150-450); RED BLOOD COUNT 3.55 10^6/uL (3.72-5.28); RED CELL DISTRIBUTION WIDTH 15.1 % (11.5-14.0)
[2020-01-15 07:21] LABS: ALBUMIN 3.1 g/dL (3.5-5.0); ALKALINE PHOSPHATASE 613 U/L (38-126); ANION GAP 7 (5-19); ASPARTATE AMINO TRANSFERASE 269 U/L (14-36); BILIRUBIN,DIRECT 1.4 mg/dL (0.0-0.4); BLOOD UREA NITROGEN 19 mg/dL (7-20); CALCIUM 9.1 mg/dL (8.4-10.2); CARBON DIOXIDE 24 mmol/L (22-30); CHLORIDE 106 mmol/L (98-107); CHOLESTEROL 105.81 mg/dL (0-200); GLUCOSE 93 mg/dL (75-110); IRON(TIBC) 70.9 ug/dL (37-170); POTASSIUM 4.8 mmol/L (3.6-5.0); TOTAL PROTEIN 6.3 g/dL (6.3-8.2); TRIGLYCERIDES 66 mg/dL (<150)
[2020-01-15 07:32] LABS: DIRECT LDL 53 mg/dL (<100)
[2020-01-15 08:53] LABS: RETICULOCYTE COUNT (AUTO) 0.38 % (0.66-2.85)
[2020-01-15] MEDS ORDERED: ENOXAPARIN SODIUM INJ 60 MG/0.6 ML DISP.SYRIN SUBCUT SCH (10:00)
--- NOTE | 2020-01-15 13:03 | PDOC PROGRESS REPORT ---
Subjective Date:: 01/15/20 Subjective:: Patient is seen and evaluated on morning rounds. O2 sat 99% on room air. Patient is seen sitting comfortably upright in her chair. She does have a history of stroke with residual expressive and receptive aphasia. She provides me with no complaints today. Case discussed with nursing nursing tells me that patient was evaluated by PT OT and speech therapy all of which noted significant improvement in patient overall from last hospitalization in December. Patient was initially n.p.o. for planned IVC filter placement. IVC filter placement has been put on hold, following my discussion with radiologist Dr. Velez, and oncologist Dr. Reddy. I have administered mechanical soft, ground meat and thick liquid diet as per previous diet as per speech recommendations. I contacted patient's daughter Shira , and provided update. All questions were addressed and answered. She expressed understanding and told me that she is on the way to the hospital to see her mother. Reason For Visit: PULMONARY EMBOLUS,CVA(CEREBRAL VASCULAR ACCIDENT) Physical Exam Vital Signs: Temp Pulse Resp BP Pulse Ox 98.0 F 95 18 87/42 L 99 01/15/20 11:26 01/15/20 11:26 01/15/20 11:26 01/15/20 11:26 01/15/20 11:26 Intake & Output 01/14/20 01/15/20 01/16/20 06:59 06:59 06:59 Intake Total 100 Balance 100 Weight 46.3 kg General appearance: PRESENT: no acute distress, cooperative, thin Head exam: PRESENT: atraumatic Eye exam: PRESENT: EOMI, PERRLA. ABSENT: conjunctival injection Mouth exam: PRESENT: moist Neck exam: PRESENT: full ROM Respiratory exam: PRESENT: clear to auscultation melissa Cardiovascular exam: PRESENT: RRR. ABSENT: diastolic murmur, gallop, systolic murmur Pulses: PRESENT: normal radial pulses Extremities exam: ABSENT: tenderness Musculoskeletal exam: PRESENT: ambulatory. ABSENT: deformity, dislocation Neurological exam: PRESENT: alert, awake, oriented to person, oriented to place, oriented to situation, other - Expressive aphasia/dysarthria. Patient does appear to understand everything. Psychiatric exam: PRESENT: appropriate affect, normal mood Skin exam: ABSENT: petechiae Results Laboratory Results: 01/15/20 06:09 01/15/20 06:09 01/14/20 01/14/20 01/14/20 17:30 17:30 19:20 WBC 4.8 RBC 3.95 Hgb 11.8 L Hct 36.0 MCV 91 MCH 29.8 MCHC 32.7 RDW 15.1 H Plt Count 213 Seg Neutrophils % 60.1 Retic Count (auto) Sodium 137.7 Potassium 4.3 Chloride 105 Carbon Dioxide 26 Anion Gap 7 BUN 18 Creatinine 1.08 Est GFR ( Amer) 59 L Glucose 91 Calcium 9.2 Iron TIBC % Saturation Ferritin Total Bilirubin 1.2 AST 436 H Alkaline Phosphatase 712 H Total Protein 7.3 Albumin 3.6 Triglycerides Cholesterol LDL Cholesterol Direct VLDL Cholesterol HDL Cholesterol Vitamin B12 Folate TSH Urine Color YELLOW Urine Appearance CLOUDY Urine pH 8.0 Ur Specific [place] 1.009 Urine Protein 30 H Urine Glucose (UA) NEGATIVE Urine Ketones NEGATIVE Urine Blood NEGATIVE Urine Nitrite POSITIVE H Ur Leukocyte Esterase LARGE H Urine WBC (Auto) >182 Urine RBC (Auto) 4 01/15/20 01/15/20 01/15/20 06:09 06:09 06:09 WBC 7.0 RBC 3.55 L Hgb 10.7 L Hct 32.3 L MCV 91 MCH 30.2 MCHC 33.2 RDW 15.1 H Plt Count 196 Seg Neutrophils % Retic Count (auto) 0.38 L Sodium 137.2 Potassium 4.8 Chloride 106 Carbon Dioxide 24 Anion Gap 7 BUN 19 Creatinine 1.14 Est GFR ( Amer) 55 L Glucose 93 Calcium 9.1 Iron 70.9 TIBC 274 % Saturation 26 Ferritin 57.90 Total Bilirubin 2.0 H AST 269 H Alkaline Phosphatase 613 H Total Protein 6.3 Albumin 3.1 L Triglycerides 66 Cholesterol 105.81 LDL Cholesterol Direct 53 VLDL Cholesterol 13.0 HDL Cholesterol 27 L Vitamin B12 944.0 H Folate 14.20 TSH 3.30 Urine Color Urine Appearance Urine pH Ur Specific [place] Urine Protein Urine Glucose (UA) Urine Ketones Urine Blood Urine Nitrite Ur Leukocyte Esterase Urine WBC (Auto) Urine RBC (Auto) 01/14/20 01/14/20 01/14/20 17:30 17:30 23:36 Creatine Kinase < 20 L CK-MB (CK-2) 0.29 Troponin I < 0.012 < 0.012 01/15/20 06:09 Creatine Kinase CK-MB (CK-2) Troponin I < 0.012 Impressions: Chest X-Ray 01/14/20 17:05 IMPRESSION: 1. Focal slight linear subsegmental passed in the right lower lung zone may represent atelectasis. No acute pulmonary consolidation. Head CT 01/14/20 17:05 IMPRESSION: Involutional changes. There findings in the left posterior frontal/ parietal region suggestive of an acute/subacute infarction. EVIDENCE OF ACUTE STROKE: YES. LEFT MCA. Chest/Abdomen CTA 01/14/20 18:26 IMPRESSION: 1. Limited embolism in the right upper lobe pulmonary artery. 2. Limited opacification in the lateral aspect of the right upper lobe, atelectasis versus pneumonia. 3. Moderate hiatal hernia. Assessment and Plan - Diagnosis (1) CVA (cerebral vascular accident) Qualifiers: CVA mechanism: occlusion Precerebral and cerebral artery: middle cerebral artery Laterality of affected vessel: left Qualified Code(s): I63.512 - Cerebral infarction due to unspecified occlusion or stenosis of left middle cerebral artery Is this a current diagnosis for this admission?: Yes Plan: Patient presented yesterday with worsening expressive aphasia/dysarthria. The right-sided weakness almost completely resolved. CT scan of the head showing infarct but it is hard to tell that the patient had a new ischemic infarct or not. She is not a candidate for thrombolytic treatment. She had normal CT angiogram of the head and neck a few weeks ago, no reason to repeat. Echocardiogram ordered, results pending. Repeat metabolic panel, LDL at goal <70 Previously on apixaban, will hold due to increase lower functions as compared to previous visit in December. Adding any antiplatelet agent to an anticoagulant would significantly increase the bleeding risk. At this point I do not feel it is warranted. Hold adding antiplatelet therapy due to increased risk of bleeding. I believe there bleeding risk would be higher than the potential benefit. After monitoring the patient decision can change. Evaluation by speech, occupational, and physical therapy completed. All note significant improvement in patient's overall status since evaluation in December. (2) Pulmonary embolus Qualifiers: Pulmonary embolism type: other Chronicity: unspecified Acute cor pulmonale presence: without acute cor pulmonale Qualified Code(s): I26.99 - Other pulmonary embolism without acute cor pulmonale Is this a current diagnosis for this admission?: Yes Plan: Presented with She was recently diagnosed with an acute right lower extremity DVT and chronic left lower extremity DVT. Treated with apaxiban. Has been compliant with medication. Presented yesterday with concerns for worsening speech, increased weakness and some shortness of breath on exertion. As per ryan Whitten, case discussed with radiologist on-call last night regarding IVC filter placement by IR. Patient was made NPO. Order was placed this a.m. I was contacted by Dr. Johnston, radiologist to discuss case. Concerns that noted PE on Chest CT is subacute. Patient did not have chest CT on visit in December for comparison. Believes that PE may be residual and not new while on anticoagulation, thus patient would be without substantial support for IVC filter placement. Ordered repeat bilateral LE US for evaluation of potential increased clot burden. Discussed case with Dr. Reddy, hematology. Recommends continued anticoagulant f or now. Hold on IVC filter. Agrees to see/evaluate patient. Recommendations appreciated. (3) DVT (deep venous thrombosis) Qualifiers: DVT location: lower extremity Affected thrombotic vein of extremity: unspecified vein of extremity Laterality: bilateral Is this a current diagnosis for this admission?: Yes Plan: Physical examination of the lower extremities is unremarkable today. She was diagnosed with bilateral lower extremity DVT, acute on the right chronic on the left in eb, tx'd with apaxiban, with compliance in medication. CT chest notable for pulmonary embolism. As per ryan Whitten, case discussed with radiologist on-call last night regarding IVC filter placement by IR. Patient was made NPO. Order was placed this a.m. I was contacted by Dr. Johnston, radiologist to discuss case. Concerns that noted PE on Chest CT is subacute. Patient did not have chest CT on visit in December for comparison. Believes that PE may be residual and not new while on anticoagulation, thus patient would be without substantial support for IVC filter placement. Ordered repeat bilateral LE US for evaluation of potential increased clot burden. Discussed case with Dr. Reddy, hematology. Recommends continued anticoagulant for now. Hold on IVC filter. Agrees to see/evaluate patient. Recommendations appreciated. (4) UTI (urinary tract infection) Qualifiers: Urinary tract infection type: site unspecified Hematuria presence: without hematuria Qualified Code(s): N39.0 - Urinary tract infection, site not specified Is this a current diagnosis for this admission?: Yes Plan: Cnt levofloxacin day 2. Urine culture positive for gram negative rods. BC pending. (5) Abnormal LFTs Is this a current diagnosis for this admission?: Yes Plan: The patient has history of alcoholism but during previous hospitalization she did not have any liver function test abnormality. She was not drinking alcohol since last the hospital. She has significantly elevated transaminases and alkaline phosphatase. Unfortunately the possibility that apixaban is causing it, cannot be excluded. Apaxiban discontinued and Loenox therapy initiated. Continue to monitor liver function studies. Case discussed with Dr. Reddy. Made away of acute changes in LFTs. Agrees to see patient. Recommendations appreciated. For time being will continue Lovenox, and f/u LFTs. (6) Hypertension Is this a current diagnosis for this admission?: Yes Plan: She is on low-dose 5 mg lisinopril daily. Continue to monitor BP. (7) Anemia Qualifiers: Anemia type: unspecified type Qualified Code(s): D64.9 - Anemia, unspecified Is this a current diagnosis for this admission?: Yes Plan: 10.7 Hemoglobin. Previously labs reviewed, baseline 11. Continue to monitor. Appropriate replacement therapy if needed. (8) Alcohol abuse Is this a current diagnosis for this admission?: Yes Plan: She has history of alcohol abuse. Since she was discharged from the hospital she was not drinking. She is going to be monitored for withdrawal symptoms anyway. CIWA protocol in place. With most recent total score 0. - Plan Summary Summary: The patient was admitted with worsening expressive aphasia, dysarthria but no other new neurological deficit. Right-sided hemiparesis significantly improved since discharge. At this point it is unclear whether she suffered a new stroke or not. She definitely has a new pulmonary emboli, recently diagnosed bilateral lower extremity DVT acute and chronic. She developed abnormal liver function studies since last admission, possibly secondary to apixaban. She has an acute urinary tract infection but she is not septic. She is going to be anticoagulated now with Lovenox. Interventional radiology is consulted for inferior vena cava filter placement. Antibiotics for urinary tract infection. The patient does not appear to be in any distress, she maintains good oxygen saturation and she is hemodynamically stable. 01/15/2020: Patient's expressive aphasia, dysarthria notably improved since admission. As per ryan Whitten, case discussed with radiologist on-call last night regarding IVC filter placement by IR. I was contacted by Dr. Johnston, radiologist to discuss case. Concerns that noted PE on Chest CT is subacute. Patient did not have chest CT on visit in December for comparison. Believes that PE may be residual and not new while on anticoagulation, thus patient would be without substantial support for IVC filter placement. Case discussed with Dr. Reddy. She instructed on continued anticoagulation in the time being and agrees to see the patient for further evaluation and recommendations. Will hold on IVC Filter. In the time being I have ordered repeat bilateral LE US for evaluation of potential increased clot burden. If increased clot burden regardless of anticoagulation, supports need for IVC filter. - Time Time Spent with patient: 35 or more minutes Medications reviewed and adjusted accordingly: Yes Anticipated Discharge Disposition: Home, Self Care Anticipated Discharge Timeframe: within 48 hours
--- NOTE | 2020-01-15 16:22 | RADIOLOGY REPORT (SQ) ---
EXAM DESCRIPTION: VENOUS BILATERAL LOWER IMAGES COMPLETED DATE/TIME: 01/15/2020 3:58 pm REASON FOR STUDY: Compare clot burden to previous COMPARISON: 12/20/2019 TECHNIQUE: Dynamic and static naranjo scale and color images acquired of both lower extremity venous sy stems. Selected spectral images acquired with additional compression and augmentation maneuvers. Imag es stored on PACS. LIMITATIONS: None. FINDINGS: RIGHT LEG COMMON FEMORAL AND FEMORAL: Normal phasicity, compression and augmentation. No visualized echogenic m aterial on naranjo scale. No defects on color images. POPLITEAL: Decreased compressibility with occlusive appearing luminal defect within the distal poplit eal vein, similar to prior exam. CALF VESSELS: Previously-seen clot within the posterior tibial vein is not identified on this exam. No additional or new clot noted within the visualized tibial veins. GSV AND SSV: Normal compression. No visualized echogenic material on naranjo scale. No defects on color images. ANY DEEP VENOUS INSUFFICIENCY: Not evaluated. ANY EVIDENCE OF POPLITEAL CYST: No. OTHER: No other significant finding. LEFT LEG COMMON FEMORAL AND FEMORAL: Normal phasicity, compression and augmentation. No visualized echogenic m aterial on naranjo scale. No defects on color images. POPLITEAL: Normal compression and augmentation. No visualized echogenic material on naranjo scale. No de fects on color images. CALF VESSELS: Normal compression and augmentation. No visualized echogenic material on naranjo scale. No defects on color images. GSV AND SSV: Normal compression. No visualized echogenic material on naranjo scale. No defects on color images. ANY DEEP VENOUS INSUFFICIENCY: Not evaluated. ANY EVIDENCE POPLITEAL CYST: No. OTHER: No other significant finding. IMPRESSION: 1. Grossly stable clot burden within the distal popliteal vein on the right. Decreased clot burden within the tibial veins compared to prior exam. 2. No new or significant clot burden within the left lower extremity. TECHNICAL DOCUMENTATION: JOB ID: [id number] 2010 [employer]- All Rights Reserved Reading location - IP/workstation name: [email or web address]
--- NOTE | 2020-01-15 18:08 | PDOC CONSULTATION ---
Consultation Consult Date: 01/15/20 Provider Consulted: MISA LOPEZ Consult reason:: Hematology/Oncology consultation was requested for patient with CVA and new PE while on Eliquis. History of Present Illness Admission Date/PCP: 01/14/20 21:58 History of Present Illness: EYAL REED is a 79 year old female who was started on Eliquis initially for Afib/heart issues. She suffered a CVA in Nov of this year and was at home recovering from this. Daughter states that she had been doing progressively better until 2 days prior to admission when she had increased lethargy, fatigue, not talking as much, increased dyspnea. No fevers. She was brought to the ED and was found to have UTI and PE. However, unclear if the DVT/PE occurred before or after she was started on Eliquis. She is now on Lovenox. She remains with expressive aphasia and is able to answer Y/N questions and follow commands, but not able to explain anything else. She is very frustrated with her aphasia. Past Medical History Cardiac Medical History: Reports: DVT, Hyperlipidema, Pulmonary Embolism Pulmonary Medical History: Denies: Asthma, Tuberculosis Endocrine Medical History: Reports: None Malignancy Medical History: Reports: Breast Cancer - Lateral breast cancer, bilateral lumpectomy, chemo and radiation therapy. Psychiatric Medical History: Reports: Depression Infectious Medical History: Reports: None Past Surgical History Past Surgical History: Reports: Other - Lumpectomy left breast, lumpectomy of the right breast. Social History Smoking Status: Never Smoker Frequency of Alcohol Use: Heavy Hx Recreational Drug Use: No Drugs: None Hx Prescription Drug Abuse: No - Advance Directive Resuscitation Status: Do Not Resuscitate Family History Family History: Reviewed & Not Pertinent Parental Family History Reviewed: No Children Family History Reviewed: No Sibling(s) Family History Reviewed.: No Medication/Allergy Home Medications: Apixaban [Eliquis 5 mg Tablet] 5 mg PO Q12 #60 tablet 12/25/19 Atorvastatin Calcium [Lipitor 40 mg Tablet] 40 mg PO QHS #30 tablet 12/25/19 Lisinopril [Prinivil 5 mg Tablet] 5 mg PO DAILY #30 tablet 12/25/19 Calcium Carbonate/Vitamin D3 [Caltrate 600 Plus D3 Tablet] 1 tab PO DAILY 01/15/20 Cyanocobalamin (Vitamin B-12) [Vitamin B-12 1000 mcg Tablet] 1,000 mcg PO DAILY 01/15/20 Allergies/Adverse Reactions: Penicillins Allergy (Verified 01/15/20 08:58) Rash Review of Systems ROS unobtainable: Due to mental status Review of Systems: As per Daughter, No fever, no dysuria. 10 point ROS was negative except as per HPI. Physical Exam Vital Signs: Temp Pulse Resp BP Pulse Ox 98.1 F 88 21 H 98/56 L 99 01/15/20 15:49 01/15/20 15:49 01/15/20 15:49 01/15/20 15:49 01/15/20 15:49 Intake & Output 01/14/20 01/15/20 01/16/20 06:59 06:59 06:59 Intake Total 100 Balance 100 Weight 46.3 kg 46.3 kg General appearance: PRESENT: no acute distress, thin Head exam: PRESENT: normocephalic Eye exam: PRESENT: EOMI Mouth exam: PRESENT: tongue midline Neck exam: ABSENT: lymphadenopathy, tenderness Respiratory exam: PRESENT: clear to auscultation melissa, unlabored Cardiovascular exam: PRESENT: RRR GI/Abdominal exam: PRESENT: soft. ABSENT: tenderness Extremities exam: ABSENT: pedal edema Musculoskeletal exam: PRESENT: full ROM Neurological exam: PRESENT: awake, other - Expressive aphasia. strength seems equal bilaterally. Psychiatric exam: PRESENT: anxious Skin exam: PRESENT: normal color Results Laboratory Results: 01/15/20 06:09 01/15/20 06:09 01/14/20 01/14/20 01/14/20 17:30 17:30 19:20 WBC 4.8 RBC 3.95 Hgb 11.8 L Hct 36.0 MCV 91 MCH 29.8 MCHC 32.7 RDW 15.1 H Plt Count 213 Seg Neutrophils % 60.1 Retic Count (auto) Sodium 137.7 Potassium 4.3 Chloride 105 Carbon Dioxide 26 Anion Gap 7 BUN 18 Creatinine 1.08 Est GFR ( Amer) 59 L Glucose 91 Calcium 9.2 Iron TIBC % Saturation Ferritin Total Bilirubin 1.2 AST 436 H Alkaline Phosphatase 712 H Total Protein 7.3 Albumin 3.6 Triglycerides Cholesterol LDL Cholesterol Direct VLDL Cholesterol HDL Cholesterol Vitamin B12 Folate TSH Urine Color YELLOW Urine Appearance CLOUDY Urine pH 8.0 Ur Specific [place] 1.009 Urine Protein 30 H Urine Glucose (UA) NEGATIVE Urine Ketones NEGATIVE Urine Blood NEGATIVE Urine Nitrite POSITIVE H Ur Leukocyte Esterase LARGE H Urine WBC (Auto) >182 Urine RBC (Auto) 4 01/15/20 01/15/20 01/15/20 06:09 06:09 06:09 WBC 7.0 RBC 3.55 L Hgb 10.7 L Hct 32.3 L MCV 91 MCH 30.2 MCHC 33.2 RDW 15.1 H Plt Count 196 Seg Neutrophils % Retic Count (auto) 0.38 L Sodium 137.2 Potassium 4.8 Chloride 106 Carbon Dioxide 24 Anion Gap 7 BUN 19 Creatinine 1.14 Est GFR ( Amer) 55 L Glucose 93 Calcium 9.1 Iron 70.9 TIBC 274 % Saturation 26 Ferritin 57.90 Total Bilirubin 2.0 H AST 269 H Alkaline Phosphatase 613 H Total Protein 6.3 Albumin 3.1 L Triglycerides 66 Cholesterol 105.81 LDL Cholesterol Direct 53 VLDL Cholesterol 13.0 HDL Cholesterol 27 L Vitamin B12 944.0 H Folate 14.20 TSH 3.30 Urine Color Urine Appearance Urine pH Ur Specific [place] Urine Protein Urine Glucose (UA) Urine Ketones Urine Blood Urine Nitrite Ur Leukocyte Esterase Urine WBC (Auto) Urine RBC (Auto) 01/14/20 01/14/20 01/14/20 17:30 17:30 23:36 Creatine Kinase < 20 L CK-MB (CK-2) 0.29 Troponin I < 0.012 < 0.012 01/15/20 01/15/20 06:09 12:10 Creatine Kinase CK-MB (CK-2) Troponin I < 0.012 < 0.012 Impressions: Chest X-Ray 01/14/20 17:05 IMPRESSION: 1. Focal slight linear subsegmental passed in the right lower lung zone may represent atelectasis. No acute pulmonary consolidation. Head CT 01/14/20 17:05 IMPRESSION: Involutional changes. There findings in the left posterior frontal/ parietal region suggestive of an acute/subacute infarction. EVIDENCE OF ACUTE STROKE: YES. LEFT MCA. Chest/Abdomen CTA 01/14/20 18:26 IMPRESSION: 1. Limited embolism in the right upper lobe pulmonary artery. 2. Limited opacification in the lateral aspect of the right upper lobe, atelectasis versus pneumonia. 3. Moderate hiatal hernia. Venous Doppler Study 01/15/20 00:00 IMPRESSION: 1. Grossly stable clot burden within the distal popliteal vein on the right. Decreased clot burden within the tibial veins compared to prior exam. 2. No new or significant clot burden within the left lower extremity. Status: Image reviewed by me Assessment & Plan - Diagnosis (1) Pulmonary embolus Qualifiers: Pulmonary embolism type: other Chronicity: unspecified Acute cor pulmonale presence: without acute cor pulmonale Qualified Code(s): I26.99 - Other pulmonary embolism without acute cor pulmonale Is this a current diagnosis for this admission?: Yes Plan: I discussed at length with Hospitalist as well as Patient's daughter. I do not see great benefit from the IVC filter, which would outweigh potential harm. I will cancel this procedure. We discussed Eliquis vs. Lovenox. Family agrees that Lovenox may be safer and more beneficial at this point. Will continue full dose of 50 mg SC BID. Her EGFR is >30 and although LFTs are elevated, tbili is not significantly elevated, so Lovenox remains safest option. She is currently not hypoxic on room air. (2) UTI (urinary tract infection) Qualifiers: Urinary tract infection type: site unspecified Hematuria presence: without hematuria Qualified Code(s): N39.0 - Urinary tract infection, site not specified Is this a current diagnosis for this admission?: Yes Plan: Currently on ABX and repeat UA at completion of treatment. (3) Hemiparesis of right dominant side due to acute cerebrovascular disease Is this a current diagnosis for this admission?: Yes Plan: Plan to start out patient PT/OT tomorrow. - Plan Summary Plan Summary: Patient was discussed with primary hospitalist at length. I am happy to follow as outpatient. Please call with any other concerns of questions.
[2020-01-15] MEDS: ENOXAPARIN SODIUM INJ 60 MG/0.6 ML DISP.SYRIN SUBCUT SCH (18:46)
[2020-01-15] MEDS ORDERED: LEVOFLOXACIN 500 MG TABLET PO SCH (20:00)
[2020-01-15] MEDS: ATORVASTATIN CALCIUM 40 MG TABLET PO SCH (21:18)
[2020-01-16] MEDS: ENOXAPARIN SODIUM INJ 60 MG/0.6 ML DISP.SYRIN SUBCUT SCH ×2 (05:35→17:54)
[2020-01-16] MEDS: CYANOCOBALAMIN (VITAMIN B-12) 1,000 MCG TABLET PO SCH (09:45)
[2020-01-16] MEDS: CALCIUM CARBONATE 600 MG/VITAMIN D3 400 UNIT TABLET PO SCH (09:45)
[2020-01-16] MEDS ORDERED: VITAMIN D3 PO SCH (10:00)
[2020-01-16] MEDS ORDERED: ENOXAPARIN SODIUM INJ 60 MG/0.6 ML DISP.SYRIN SUBCUT SCH (10:00)
[2020-01-16] MEDS ORDERED: CALCIUM CARBONATE PO SCH (10:00)
[2020-01-16] MEDS ORDERED: [UNRECOGNIZED DRUG - OTHER] PO SCH (10:00)
[2020-01-16] MEDS ORDERED: LEVOFLOXACIN 500 MG TABLET PO SCH (10:00)
[2020-01-16] MEDS ORDERED: LISINOPRIL 5 MG TABLET PO SCH (10:00)
--- NOTE | 2020-01-16 14:23 | RADIOLOGY REPORT (SQ) ---
EXAM DESCRIPTION: MRI HEAD WITHOUT IMAGES COMPLETED DATE/TIME: 01/16/2020 9:36 am REASON FOR STUDY: worsening aphasia, recent stroke COMPARISON: 12/21/2019 TECHNIQUE: Multiplanar imaging includes non-contrasted T1, T2, FLAIR, and diffusion with ADC map seq uences. Images stored on PACS. LIMITATIONS: None. FINDINGS: ANATOMY: No anomalies. Normal vascular flow voids. Pituitary fossa normal. CSF SPACES: Atrophy induced prominence of ventricles and CSF spaces. CEREBRUM: Increase in size of geographic abnormal signal in the left parietal lobe measuring just ove r 4 cm. Associated cytotoxic edema without significant mass effect. No hemorrhage. 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 No evidence of hemorrhage, mass, or extraaxial fluid collection. POSTERIOR FOSSA: No signal alteration. No hemorrhage. No edema, masses or mass effect. Internal jarrod tory canals, cerebello-pontine angles, mastoids normal. DIFFUSION IMAGING: Above-described abnormality left parietal low-density bright on diffusion and inte rmediate signal on ADC map consistent with subacute/chronic infarction. ORBITS: No masses. Globes normal. PARANASAL SINUSES: No fluid levels. Mucosa normal. OTHER: No other significant finding. IMPRESSION: Enlarging subacute/chronic nonhemorrhagic infarct left parietal lobe. EVIDENCE OF ACUTE STROKE: YES. LEFT MCA. TECHNICAL DOCUMENTATION: JOB ID: [id number] [employer]- All Rights Reserved Reading location - IP/workstation name: [email or web address]
--- NOTE | 2020-01-16 19:48 | PDOC PROGRESS REPORT ---
Subjective Date:: 01/16/20 Subjective:: D2 hospital stay Care assumed today. Patient was seen adn examined at bedside. Mini de paz was reviewed. She did well working with physical therapy. She is still aphasic but this is stable. She did not complain of any new neurologic deficit. I repeated the MRI brain to assess for any new stroke and it showed Enlarging subacute/chronic non hemorrhagic infarct left parietal lobe. I discussed this with the patient and her daughter since a new stroke would likely mean that she will benefit from having an anti platelet, however, she is also on lovenox for a PE and this puts her at a higher risk for bleeding. Her HAS-Bled score is high and her risk for stroke is high as well. After extensive discussions of risk and benefit, the patient and daughter decided that they want to proceed with her going home on aspirin and lovenox. They understood and accepted the risk involved. I also highly encouraged them to follow up with a PCP, a neurologist and Dr. Reddy in the outpatient for continued discussion. Reason For Visit: PULMONARY EMBOLUS,CVA(CEREBRAL VASCULAR ACCIDENT) Physical Exam Vital Signs: Temp Pulse Resp BP Pulse Ox 97.6 F 65 18 118/76 98 01/16/20 11:33 01/16/20 17:58 01/16/20 17:58 01/16/20 17:58 01/16/20 17:58 Intake & Output 01/15/20 01/16/20 01/17/20 06:59 06:59 06:59 Intake Total 100 620 Output Total 0 Balance 100 0 620 Weight 46.3 kg 47.1 kg General appearance: PRESENT: no acute distress, cooperative, thin Head exam: PRESENT: atraumatic, normocephalic Eye exam: PRESENT: EOMI, PERRLA Mouth exam: PRESENT: moist Neck exam: PRESENT: full ROM Respiratory exam: PRESENT: clear to auscultation melissa, symmetrical Cardiovascular exam: PRESENT: RRR, +S1, +S2 Pulses: PRESENT: +2 pedal pulses bilateral GI/Abdominal exam: PRESENT: normal bowel sounds, soft. ABSENT: rebound, tenderness Extremities exam: PRESENT: full ROM Musculoskeletal exam: PRESENT: full ROM Neurological exam: PRESENT: alert, awake, oriented to place, oriented to time, oriented to situation Psychiatric exam: PRESENT: normal mood Skin exam: PRESENT: normal color Results Laboratory Results: 01/15/20 06:09 01/15/20 06:09 01/14/20 21:25 Blood Blood Culture (PCR) - Final Staphylococcus Species 01/14/20 19:20 Catheterized Urine Urine Culture - Final Escherichia Coli 01/14/20 01/14/20 01/14/20 17:30 17:30 23:36 Creatine Kinase < 20 L CK-MB (CK-2) 0.29 Troponin I < 0.012 < 0.012 01/15/20 01/15/20 06:09 12:10 Creatine Kinase CK-MB (CK-2) Troponin I < 0.012 < 0.012 Impressions: Chest X-Ray 01/14/20 17:05 IMPRESSION: 1. Focal slight linear subsegmental passed in the right lower lung zone may represent atelectasis. No acute pulmonary consolidation. Head CT 01/14/20 17:05 IMPRESSION: Involutional changes. There findings in the left posterior frontal/ parietal region suggestive of an acute/subacute infarction. EVIDENCE OF ACUTE STROKE: YES. LEFT MCA. Chest/Abdomen CTA 01/14/20 18:26 IMPRESSION: 1. Limited embolism in the right upper lobe pulmonary artery. 2. Limited opacification in the lateral aspect of the right upper lobe, atelectasis versus pneumonia. 3. Moderate hiatal hernia. Venous Doppler Study 01/15/20 00:00 IMPRESSION: 1. Grossly stable clot burden within the distal popliteal vein on the right. Decreased clot burden within the tibial veins compared to prior exam. 2. No new or significant clot burden within the left lower extremity. Head MRI 01/16/20 00:00 IMPRESSION: Enlarging subacute/chronic nonhemorrhagic infarct left parietal lobe. EVIDENCE OF ACUTE STROKE: YES. LEFT MCA. Assessment and Plan - Diagnosis (1) CVA (cerebral vascular accident) Qualifiers: CVA mechanism: occlusion Precerebral and cerebral artery: middle cerebral artery Laterality of affected vessel: left Qualified Code(s): I63.512 - Cerebral infarction due to unspecified occlusion or stenosis of left middle cerebral artery Is this a current diagnosis for this admission?: Yes Plan: -Patient presented yesterday with worsening expressive aphasia/dysarthria. The right-sided weakness almost completely resolved. -CT scan of the head showing infarct b. She had normal CT angiogram of the head and neck a few weeks ago -MRI brain done 01/16/20 showed enlarging subacute/chronic nonhemorrhagic infarct left parietal lobe. -Echocardiogram ordered, results pending. -Repeat metabolic panel, LDL at goal <70 -I discussed the recent MRI findings with the patient and her daughter Shira at bedside. Unfortunately the MRI showed signs of acute stroke and it is likely that she will benefit from having aspirin. However the patient is also on Lovenox for an acute pulmonary embolism and having both aspirin and Lovenox significantly increases her bleeding. I have discussed with the patient and her daughter the risk and benefit of being on aspirin and Lovenox. After weighing the risk and benefits the daughter patient made an informed decision to be put on both aspirin and Lovenox. They understood and accepted the risk involved. I also highly encouraged him to follow-up with neurology needs, primary care physician and Dr. Leach for continued discussion about this matter. An IVC filter is still a reasonable option for in the future -Evaluation by speech, occupational, and physical therapy completed. All note significant improvement in patient's overall status since evaluation in December. (2) Pulmonary embolus Qualifiers: Pulmonary embolism type: other Chronicity: unspecified Acute cor pulmonale presence: without acute cor pulmonale Qualified Code(s): I26.99 - Other pulmonary embolism without acute cor pulmonale Is this a current diagnosis for this admission?: Yes Plan: Presented with She was recently diagnosed with an acute right lower extremity DVT and chronic left lower extremity DVT. Treated with apaxiban. Has been compliant with medication. Presented with concerns for worsening speech, increased weakness and some shortness of breath on exertion. Repeat bilateral LE US showed stable findings no significantly increased clot burden. -Per Dr. Leach recommendations Lovenox might be the best option for her with a dose of 50 mg subcu twice a day. Eliquis was stopped due to her elevated LFTs. (3) DVT (deep venous thrombosis) Qualifiers: DVT location: lower extremity Affected thrombotic vein of extremity: unspecified vein of extremity Laterality: bilateral Is this a current diagnosis for this admission?: Yes Plan: Physical examination of the lower extremities is unremarkable today. She was diagnosed with bilateral lower extremity DVT, acute on the right chronic on the left in Novemeber, tx'd with apaxiban, with compliance in medication. CT chest notable for pulmonary embolism. I was contacted by Dr. Johnston, radiologist to discuss case. Concerns that noted PE on Chest CT is subacute. Patient did not have chest CT on visit in December for comparison. Believes that PE may be residual and not new while on anticoagulation, thus patient would be without substantial support for IVC angelica ter placement. repeat bilateral LE US DID not show any increased clot burden -Patient will be discharged on Lovenox 50 mg subcu twice a day. -Nurses to teach the daughter how to administer Lovenox (4) Hypertension Qualifiers: Hypertension type: essential hypertension Qualified Code(s): I10 - Essential (primary) hypertension Is this a current diagnosis for this admission?: Yes Plan: She is on low-dose 5 mg lisinopril daily. Continue to monitor BP. (5) UTI (urinary tract infection) Qualifiers: Urinary tract infection type: site unspecified Hematuria presence: without hematuria Qualified Code(s): N39.0 - Urinary tract infection, site not specified Is this a current diagnosis for this admission?: Yes Plan: Cnt levofloxacin day 2. Urine culture positive for gram negative rods. BC pending. (6) Abnormal LFTs Is this a current diagnosis for this admission?: Yes Plan: -Improving - The patient has history of alcoholism but during previous hospitalization she did not have any liver function test abnormality. -She was not drinking alcohol since last the hospital. -She has significantly elevated transaminases and alkaline phosphatase. -Unfortunately the possibility that apixaban is causing it, cannot be excluded. -Apaxiban discontinued and Loenox therapy initiated. -Continue to monitor liver function studies. -s. (7) Anemia Qualifiers: Anemia type: unspecified type Qualified Code(s): D64.9 - Anemia, unspecified Is this a current diagnosis for this admission?: Yes Plan: 10.7 Hemoglobin. Previously labs reviewed, baseline 11. Continue to monitor. Appropriate replacement therapy if needed. (8) Alcohol abuse Is this a current diagnosis for this admission?: Yes Plan: She has history of alcohol abuse. Since she was discharged from the hospital she was not drinking. She is going to be monitored for withdrawal symptoms anyway. CIWA protocol in place. With most recent total score 0. - Plan Summary Summary: . - Time Time Spent with patient: 25-34 minutes Medications reviewed and adjusted accordingly: Yes Anticipated Discharge Disposition: Home, Self Care Anticipated Discharge Timeframe: TBD
[2020-01-16] MEDS: ATORVASTATIN CALCIUM 40 MG TABLET PO SCH (21:54)
[2020-01-17 04:37] LABS: HEMATOCRIT 33.8 % (36.0-47.0); HEMOGLOBIN 11.1 g/dL (12.0-15.5); MEAN CORPUSCULAR HEMOGLOBIN 29.8 pg (27.0-33.4); MEAN CORPUSCULAR HGB CONC 32.9 g/dL (32.0-36.0); MEAN CORPUSCULAR VOLUME 91 fl (80-97); PLATELET COUNT 190 10^3/uL (150-450); RED BLOOD COUNT 3.73 10^6/uL (3.72-5.28); RED CELL DISTRIBUTION WIDTH 15.6 % (11.5-14.0); WHITE BLOOD COUNT 5.4 10^3/uL (4.0-10.5)
[2020-01-17] MEDS: ENOXAPARIN SODIUM INJ 60 MG/0.6 ML DISP.SYRIN SUBCUT SCH (05:32)
[2020-01-17] MEDS: CYANOCOBALAMIN (VITAMIN B-12) 1,000 MCG TABLET PO SCH (09:18)
[2020-01-17] MEDS: CALCIUM CARBONATE 600 MG/VITAMIN D3 400 UNIT TABLET PO SCH (09:18)
[2020-01-17 12:06] VITALS: BP 108/68
--- NOTE | 2020-01-18 06:49 | PDOC DISCHARGE SUMMARY ---
Impression - Admit/DC Date/PCP Admission Date/Primary Care Provider: 01/14/20 21:58 Discharge Date: 01/17/20 - Discharge Diagnosis (1) CVA (cerebral vascular accident) Is this a current diagnosis for this admission?: Yes (2) Pulmonary embolus Is this a current diagnosis for this admission?: Yes (3) DVT (deep venous thrombosis) Is this a current diagnosis for this admission?: Yes (4) Hypertension Is this a current diagnosis for this admission?: Yes (5) UTI (urinary tract infection) Is this a current diagnosis for this admission?: Yes (6) Abnormal LFTs Is this a current diagnosis for this admission?: Yes (7) Anemia Is this a current diagnosis for this admission?: Yes (8) Alcohol abuse Is this a current diagnosis for this admission?: Yes - Assessment Summary: (1) CVA (cerebral vascular accident) Qualifiers: CVA mechanism: occlusion Precerebral and cerebral artery: middle cerebral artery Laterality of affected vessel: left Qualified Code(s): I63.512 - C erebral infarction due to unspecified occlusion or stenosis of left middle cerebral artery Is this a current diagnosis for this admission?: Yes Plan: -Patient presented yesterday with worsening expressive aphasia/dysarthria. The right-sided weakness almost completely resolved. -CT scan of the head showing infarct b. She had normal CT angiogram of the head and neck a few weeks ago -MRI brain done 01/16/20 showed enlarging subacute/chronic nonhemorrhagic infarct left parietal lobe. -Echocardiogram ordered, results pending. -Repeat metabolic panel, LDL at goal <70 -I discussed the recent MRI findings with the patient and her daughter Shira at bedside. Unfortunately the MRI showed signs of acute stroke and it is likely that she will benefit from having aspirin. However the patient is also on Lovenox for an acute pulmonary embolism and having both aspirin and Lovenox significantly increases her bleeding. I have discussed with the patient and her daughter the risk and benefit of being on aspirin and Lovenox. After weighing the risk and benefits the daughter patient made an informed decision to be put on both aspirin and Lovenox. They understood and accepted the risk involved. I also highly encouraged him to follow-up with neurology needs, primary care physician and Dr. Leach for continued discussion about this matter. An IVC filter is still a reasonable option for in the future -Evaluation by speech, occupational, and physical therapy completed. All note significant improvement in patient's overall status since evaluation in December. (2) Pulmonary embolus Qualifiers: Pulmonary embolism type: other Chronicity: unspecified Acute cor pulmonale presence: without acute cor pulmonale Qualified Code(s): I26.99 - Other pulmonary embolism without acute cor pulmonale Is this a current diagnosis for this admission?: Yes Plan: Presented with She was recently diagnosed with an acute right lower extremity DVT and chronic left lower extremity DVT. Treated with apaxiban. Has been compliant with medication. Presented with concerns for worsening speech, increased weakness and some shortness of breath on exertion. Repeat bilateral LE US showed stable findings no significantly increased clot burden. -Per Dr. Leach recommendations Lovenox might be the best option for her with a dose of 50 mg subcu twice a day. Eliquis was stopped due to her elevated LFTs. (3) DVT (deep venous thrombosis) Qualifiers: DVT location: lower extremity Affected thrombotic vein of extremity: unspecified vein of extremity Laterality: bilateral Is this a current diagnosis for this admission?: Yes Plan: Physical examination of the lower extremities is unremarkable today. She was diagnosed with bilateral lower extremity DVT, acute on the right chronic on the left in eb, tx'd with apaxiban, with compliance in medication. CT chest notable for pulmonary embolism. I was contacted by Dr. Johnston, radiologist to discuss case. Concerns that noted PE on Chest CT is subacute. Patient did not have chest CT on visit in December for comparison. Believes that PE may be residual and not new while on anticoagulation, thus patient would be without substantial support for IVC filter placement. repeat bilateral LE US DID not show any increased clot burden -Patient will be discharged on Lovenox 50 mg subcu twice a day. -Nurses to teach the daughter how to administer Lovenox (4) Hypertension Qualifiers: Hypertension type: essential hypertension Qualified Code(s): I10 - Essential (primary) hypertension Is this a current diagnosis for this admission?: Yes Plan: She is on low-dose 5 mg lisinopril daily. Continue to monitor BP. (5) UTI (urinary tract infection) Qualifiers: Urinary tract infection type: site unspecified Hematuria presence: without hematuria Qualified Code(s): N39.0 - Urinary tract infection, site not specified Is this a current diagnosis for this admission?: Yes Plan: Cnt levofloxacin day 2. Urine culture positive for gram negative rods. BC pending. (6) Abnormal LFTs Is this a current diagnosis for this admission?: Yes Plan: -Improving - The patient has history of alcoholism but during previous hospitalization she did not have any liver function test abnormality. -She was not drinking alcohol since last the hospital. -She has significantly elevated transaminases and alkaline phosphatase. -Unfortunately the possibility that apixaban is causing it, cannot be excluded. -Apaxiban discontinued and Loenox therapy initiated. -Continue to monitor liver function studies. -s. (7) Anemia Qualifiers: Anemia type: unspecified type Qualified Code(s): D64.9 - Anemia, unspecified Is this a current diagnosis for this admission?: Yes Plan: 10.7 Hemoglobin. Previously labs reviewed, baseline 11. Continue to monitor. Appropriate replacement therapy if needed. (8) Alcohol abuse Is this a current diagnosis for this admission?: Yes Plan: She has history of alcohol abuse. Since she was discharged from the hospital she was not drinking. She is going to be monitored for withdrawal symptoms anyway. CIWA protocol in place. With most recent total score 0. - Additional Information Resuscitation Status: Do Not Resuscitate Discharge Diet: As Tolerated Discharge Activity: Activity As Tolerated, No tub bath Referrals: MISA REDDY MD [ACTIVE STAFF] - (in 6 weeks. Please call to arrange. ) Prescriptions: Aspirin [Aspirin 81 mg Chewable Tablet] 81 mg PO DAILY 30 Days #1 pkg Enoxaparin Sodium [Lovenox Inj 60 mg/0.6 ml Disp.syrin] 50 mg SUBCUT Q12A 30 Days #60 disp.syrin Home Medications: Atorvastatin Calcium [Lipitor 40 mg Tablet] 40 mg PO QHS #30 tablet 12/25/19 Lisinopril [Prinivil 5 mg Tablet] 5 mg PO DAILY #30 tablet 12/25/19 Calcium Carbonate/Vitamin D3 [Caltrate 600 Plus D3 Tablet] 1 tab PO DAILY 01/15/20 Cyanocobalamin (Vitamin B-12) [Vitamin B-12 1000 mcg Tablet] 1,000 mcg PO DAILY 01/15/20 Aspirin [Aspirin 81 mg Chewable Tablet] 81 mg PO DAILY 30 Days #1 pkg 01/17/20 Enoxaparin Sodium [Lovenox Inj 60 mg/0.6 ml Disp.syrin] 50 mg SUBCUT Q12A 30 Days #60 disp.syrin 01/17/20 History of Present Illiness History of Present Illness: EYAL REED is a 79 year old female The patient was recently admitted to the hospital between December 19 through December 24 with a left MCA infarct. She had right-sided hemiparesis and expressive and receptive aphasia. She went home with her daughter. She still does not have a primary care physician. She recently moved here. She was taking her medications as they were prescribed. During previous hospitalization she was diagnosed with bilateral lower extremity deep venous thrombosis, acute on the right leg chronic on the left leg. She has history of recurrent venous thromboembolic disease. She was doing reasonably well and slowly improving till today. Prior to coming to the hospital her daughter noticed that speech became very garbled again she became very weak. In the emergency department it was suspected that she probably suffered a new stroke. She was not a candidate for thrombolytic treatment because of the time window and because of the recent ischemic stroke. She had a CT pulmonary angiogram and she was found to have a pulmonary emboli as well. She remained hemodynamically stable. She maintains good oxygen saturation. When I saw her it was obvious that she has expressive aphasia/dysarthria. She did not appear to be in distress. Hospital Course Hospital Course: "Patient is seen and evaluated on morning rounds. O2 sat 99% on room air. Patient is seen sitting comfortably upright in her chair. She does have a history of stroke with residual expressive and receptive aphasia. She provides me with no complaints today. Case discussed with nursing nursing tells me that patient was evaluated by PT OT and speech therapy all of which noted significant improvement in patient overall from last hospitalization in December. Patient was initially n.p.o. for planned IVC filter placement. IVC filter placement has been put on hold, following my discussion with radiologist Dr. Velez, and oncologist Dr. Reddy. I have administered mechanical soft, ground meat and thick liquid diet as per previous diet as per speech recommendat ions. "I contacted patient's daughter Shira , and provided update. All questions were addressed and answered. She expressed understanding and told me that she is on the way to the hospital to see her mother. Physical Exam Vital Signs: Temp Pulse Resp BP Pulse Ox 98.0 F 78 16 108/68 100 01/17/20 12:03 01/17/20 12:03 01/17/20 12:03 01/17/20 12:03 01/17/20 12:03 Intake & Output 01/16/20 01/17/20 01/18/20 06:59 06:59 06:59 Intake Total 620 Output Total 0 0 Balance 0 620 Weight 47.1 kg 45.8 kg General appearance: PRESENT: no acute distress, cooperative, thin Head exam: PRESENT: atraumatic, normocephalic Eye exam: PRESENT: EOMI, PERRLA Mouth exam: PRESENT: moist Neck exam: PRESENT: full ROM Respiratory exam: PRESENT: clear to auscultation melissa, symmetrical, unlabored Cardiovascular exam: PRESENT: RRR, +S1, +S2 Pulses: PRESENT: +2 pedal pulses bilateral GI/Abdominal exam: PRESENT: normal bowel sounds, soft. ABSENT: rebound, tenderness Extremities exam: PRESENT: other - minimal right sided weakness Musculoskeletal exam: PRESENT: ambulatory Neurological exam: PRESENT: alert, awake, oriented to person, oriented to place, aphasic - expressive Psychiatric exam: PRESENT: normal mood Skin exam: PRESENT: normal color Results Laboratory Results: WBC 5.4 10^3/uL (4.0-10.5) 01/17/20 04:16 RBC 3.73 10^6/uL (3.72-5.28) 01/17/20 04:16 Hgb 11.1 g/dL (12.0-15.5) L 01/17/20 04:16 Hct 33.8 % (36.0-47.0) L 01/17/20 04:16 MCV 91 fl (80-97) 01/17/20 04:16 MCH 29.8 pg (27.0-33.4) 01/17/20 04:16 MCHC 32.9 g/dL (32.0-36.0) 01/17/20 04:16 RDW 15.6 % (11.5-14.0) H 01/17/20 04:16 Plt Count 190 10^3/uL (150-450) 01/17/20 04:16 Lymph % (Auto) 20.1 % (13-45) 01/14/20 17:30 [place] % (Auto) 5.6 % (3-13) 01/14/20 17:30 Eos % (Auto) 13.5 % (0-6) H 01/14/20 17:30 Baso % (Auto) 0.7 % (0-2) 01/14/20 17:30 Reticulocyte # 0.013 10^6/uL (0.028-0.122) L 01/15/20 06:09 Absolute Neuts (auto) 2.9 10^3/uL (1.7-8.2) 01/14/20 17:30 Absolute Lymphs (auto) 1.0 10^3/uL (0.5-4.7) 01/14/20 17:30 Absolute Monos (auto) 0.3 10^3/uL (0.1-1.4) 01/14/20 17:30 Absolute Eos (auto) 0.6 10^3/uL (0.0-0.6) 01/14/20 17:30 Absolute Basos (auto) 0.0 10^3/uL (0.0-0.2) 01/14/20 17:30 Seg Neutrophils % 60.1 % (42-78) 01/14/20 17:30 Retic Count (auto) 0.38 % (0.66-2.85) L 01/15/20 06:09 PT 16.0 SEC (11.4-15.4) H 01/14/20 17:30 INR 1.26 01/14/20 17:30 APTT 36.8 SEC (23.5-35.8) H 01/14/20 17:30 Sodium 137.2 mmol/L (137-145) 01/15/20 06:09 Potassium 4.8 mmol/L (3.6-5.0) 01/15/20 06:09 Chloride 106 mmol/L (98-107) 01/15/20 06:09 Carbon Dioxide 24 mmol/L (22-30) 01/15/20 06:09 Anion Gap 7 (5-19) 01/15/20 06:09 BUN 19 mg/dL (7-20) 01/15/20 06:09 Creatinine 1.14 mg/dL (0.52-1.25) 01/15/20 06:09 Est GFR ( Amer) 55 (>60) L 01/15/20 06:09 Est GFR (MDRD) Non-Af 46 (>60) L 01/15/20 06:09 Glucose 93 mg/dL (75-110) 01/15/20 06:09 POC Glucose 88 mg/dL (70-110) 01/14/20 17:26 Hemoglobin A1c % 5.3 % (4.7-6.0) 01/15/20 06:09 Calcium 9.1 mg/dL (8.4-10.2) 01/15/20 06:09 Iron 70.9 ug/dL (37-170) 01/15/20 06:09 TIBC 274 ug/dL (250-450) 01/15/20 06:09 % Saturation 26 % 01/15/20 06:09 Ferritin 57.90 ng/mL (11.1-264.0) 01/15/20 06:09 Total Bilirubin 2.0 mg/dL (0.2-1.3) H 01/15/20 06:09 Direct Bilirubin 1.4 mg/dL (0.0-0.4) H 01/15/20 06:09 Neonat Total Bilirubin Not Reportable 01/15/20 06:09 Neonat Direct Bilirubin Not Reportable 01/15/20 06:09 Neonat Indirect Bili Not Reportable 01/15/20 06:09 AST 269 U/L (14-36) H 01/15/20 06:09 ALT 294 U/L (<35) H 01/15/20 06:09 Alkaline Phosphatase 613 U/L (38-126) H 01/15/20 06:09 Creatine Kinase < 20 U/L (30-135) L 01/14/20 17:30 CK-MB (CK-2) 0.29 ng/mL (<4.55) 01/14/20 17:30 Troponin I < 0.012 ng/mL 01/15/20 12:10 Total Protein 6.3 g/dL (6.3-8.2) 01/15/20 06:09 Albumin 3.1 g/dL (3.5-5.0) L 01/15/20 06:09 Triglycerides 66 mg/dL (<150) 01/15/20 06:09 Cholesterol 105.81 mg/dL (0-200) 12/09/20 06:09 LDL Cholesterol Direct 53 mg/dL (<100) 01/15/20 06:09 VLDL Cholesterol 13.0 mg/dL (10-31) 01/15/20 06:09 HDL Cholesterol 27 mg/dL (>40) L 01/15/20 06:09 Vitamin B12 944.0 pg/mL (239-931) H 01/15/20 06:09 Folate 14.20 ng/mL (>2.76) 01/15/20 06:09 TSH 3.30 uIU/mL (0.47-4.68) 01/15/20 06:09 Urine Color YELLOW 01/14/20 19:20 Urine Appearance CLOUDY 01/14/20 19:20 Urine pH 8.0 (5.0-9.0) 01/14/20 19:20 Ur Specific [place] 1.009 01/14/20 19:20 Urine Protein 30 mg/dL (NEGATIVE) H 01/14/20 19:20 Urine Glucose (UA) NEGATIVE mg/dL (NEGATIVE) 01/14/20 19:20 Urine Ketones NEGATIVE mg/dL (NEGATIVE) 01/14/20 19:20 Urine Blood NEGATIVE (NEGATIVE) 01/14/20 19:20 Urine Nitrite POSITIVE (NEGATIVE) H 01/14/20 19:20 Urine Bilirubin NEGATIVE (NEGATIVE) 01/14/20 19:20 Urine Urobilinogen 2.0 mg/dL (<2.0) H 01/14/20 19:20 Ur Leukocyte Esterase LARGE (NEGATIVE) H 01/14/20 19:20 Urine WBC (Auto) >182 /HPF 01/14/20 19:20 Urine RBC (Auto) 4 /HPF 01/14/20 19:20 Urine Bacteria (Auto) 3+ /HPF 01/14/20 19:20 Urine WBC Clumps MOD /HPF 01/14/20 19:20 Urine Ascorbic Acid NEGATIVE (NEGATIVE) 01/14/20 19:20 Acetaminophen < 10 ug/mL (10-30) L 01/14/20 17:30 Serum Alcohol < 10 mg/dL (NONE DETECTED) 01/14/20 17:30 01/14/20 01/14/20 01/15/20 17:30 23:36 06:09 CK-MB (CK-2) 0.29 Troponin I < 0.012 < 0.012 < 0.012 01/15/20 12:10 CK-MB (CK-2) Troponin I < 0.012 Impressions: Chest X-Ray 01/14/20 17:05 IMPRESSION: 1. Focal slight linear subsegmental passed in the right lower lung zone may represent atelectasis. No acute pulmonary consolidation. Head CT 01/14/20 17:05 IMPRESSION: Involutional changes. There findings in the left posterior frontal/ parietal region suggestive of an acute/subacute infarction. EVIDENCE OF ACUTE STROKE: YES. LEFT MCA. Chest/Abdomen CTA 01/14/20 18:26 IMPRESSION: 1. Limited embolism in the right upper lobe pulmonary artery. 2. Limited opacification in the lateral aspect of the right upper lobe, atelectasis versus pneumonia. 3. Moderate hiatal hernia. Venous Doppler Study 01/15/20 00:00 IMPRESSION: 1. Grossly stable clot burden within the distal popliteal vein on the right. Decreased clot burden within the tibial veins compared to prior exam. 2. No new or significant clot burden within the left lower extremity. Head MRI 01/16/20 00:00 IMPRESSION: Enlarging subacute/chronic nonhemorrhagic infarct left parietal lobe. EVIDENCE OF ACUTE STROKE: YES. LEFT MCA. Plan Plan of Treatment: - patient was discharged on aspirin and lovenox after discussion with the patient and daughter. They understood have accepted the risk Time Spent: Greater than 30 Minutes Stroke Is this a Stroke Patient?: Yes Stroke Pt being discharged on Anti-thrombolytic therapy?: Yes Stroke Pt being discharged on Anti-coagulation therapy?: Yes Stroke Pt being discharged on Statins?: Yes Acute Heart Failure Is this a Heart Failure Patient?: No
== END 2020-01-17 12:57 | disposition home or self-care (01) | DRG 65 ==
LOC: ER 17:02 → EH 21:58 → 3S 01-15 01:19
PROVIDERS: ADMIT Internal Medicine; ATTEND Internal Medicine
DX: I63.9 Cerebral infarction, unspecified (principal); N39.0 Urinary tract infection, site not specified; I82.592 Chronic embolism and thrombosis of other specified deep vein of left lower extremity; I27.82 Chronic pulmonary embolism; I69.351 Hemiplegia and hemiparesis following cerebral infarction affecting right dominant side; R94.5 Abnormal results of liver function studies; R29.6 Repeated falls; R47.01 Aphasia; R47.1 Dysarthria and anarthria; F10.20 Alcohol dependence, uncomplicated; I10 Essential (primary) hypertension; D64.9 Anemia, unspecified; E78.5 Hyperlipidemia, unspecified; I48.91 Unspecified atrial fibrillation; Z79.01 Long term (current) use of anticoagulants; Z86.711 Personal history of pulmonary embolism; Z85.3 Personal history of malignant neoplasm of breast; Z66 Do not resuscitate; Z88.0 Allergy status to penicillin
CPT/HCPCS: 36415; 51701; 70450; 70551; 71045; 71275; 80053; 80061; 80307; 81001; 82550; 82553; 82607; 82728; 82746; 82962; 83036; 83540; 83550; 84443; 84484; 85025; 85027; 85045; 85610; 85730; 87040; 87077; 87086; 87088; 87150; 87186; 93005; 93010; 93970; 96374; 99285; J1650; J1956; J3490